=== PATIENT | male | born 1945 | race Caucasian/White ===

== ENCOUNTER 2023-08-22 06:24 | Day surgery (SDC) | payer MEDICARE, SELFPAY ==
[2023-08-22 08:09] VITALS: BMI 26.8
[2023-08-22 08:10] VITALS: BMI 26.8
[2023-08-22 08:11] VITALS: BP 118/68
[2023-08-22 09:35] VITALS: BP 90/61
[2023-08-22 09:45] VITALS: BP 100/59
[2023-08-22 10:00] VITALS: BP 100/68
[2023-08-22 10:15] VITALS: BP 109/69
== END 2023-08-22 10:29 | disposition home or self-care (01) ==
LOC: SDS 06:24
PROVIDERS: ATTENDING PHYSICIAN Internal Medicine Gastroenterology
DX: K76.6 Portal hypertension (principal)
CPT/HCPCS: 43235

== ENCOUNTER → 2023-10-15 15:17 | Outpatient (REF) | payer MEDICARE, SELFPAY | LOC: RAD 15:17 | PROVIDERS: ATTENDING PHYSICIAN Internal Medicine Cardiovascular Disease; FAMILY PHYSICIAN Emergency Medicine | DX: R05.1 Acute cough (principal) | CPT/HCPCS: 71046 ==

== ENCOUNTER → 2023-11-05 07:21 | Outpatient (REF) | payer MEDICARE, SELFPAY ==
--- NOTE | 2023-11-05 08:58 | CARDSERVLU ---
Echocardiogram with [facility] completed after protocol screening completed. Allergies verified.
Patent IV site: __22P RFA___
IV site flushed with 0.9% NaCl pre and post administration.
Diluted bolus method utilized to enhance visualization of ventricular beckford.
Total volume given: _6.5___ mL
Patient tolerated all procedures well without complications.
Site dcd at completion of testing.
== END ==
LOC: RCS 07:21
PROVIDERS: ATTENDING PHYSICIAN Internal Medicine Cardiovascular Disease; FAMILY PHYSICIAN Emergency Medicine
DX: R05.1 Acute cough (principal); I50.30 Unspecified diastolic (congestive) heart failure; I35.0 Nonrheumatic aortic (valve) stenosis; I25.10 Atherosclerotic heart disease of native coronary artery without angina pectoris
CPT/HCPCS: 93306; Q9950

== ENCOUNTER → 2023-11-13 11:49 | Outpatient (REF) | payer MEDICARE, SELFPAY | LOC: MRI 3T 11:49 | PROVIDERS: ATTENDING PHYSICIAN Nurse Practitioner Family; FAMILY PHYSICIAN Emergency Medicine | DX: R93.7 Abnormal findings on diagnostic imaging of other parts of musculoskeletal system (principal); R59.0 Localized enlarged lymph nodes; C22.0 Liver cell carcinoma; R53.82 Chronic fatigue, unspecified; R79.9 Abnormal finding of blood chemistry, unspecified; R94.6 Abnormal results of thyroid function studies | CPT/HCPCS: 70553; A9575 ==

== ENCOUNTER 2023-11-28 16:11 | Emergency (ER) | payer MEDICARE, SELFPAY ==
[2023-11-28 16:13] VITALS: BP 128/72
[2023-11-28 16:39] LABS: % Basophils 0.5 % (0-2); % Eosinophils 3.7 % (0-6); % Immature Granulocytes 0.5 % (0-0.5); % Lymphocytes 13.8 % (20.5-51.1); % Monocytes 9.1 % (1.7-9.3); % Neutrophils 72.4 % (42.2-75.2); Absolute Eosinophils 0.3 10^3/uL (0-0.7); Absolute Lymphocytes 1.2 10^3/uL (1.2-3.4); Absolute Monocytes 0.8 10^3/uL (0.1-0.6); Absolute Neutrophils 6.1 10^3/uL (1.4-6.5); Hematocrit 33.7 % (39.0-52.0); Hemoglobin 10.8 g/dL (13.0-18.0); Mean Corpuscular Hgb 27.1 pg (27.0-31.0); Mean Corpuscular Volume 84.7 fL (80.0-94.0); Mean Platelet Volume 9.4 fL (7.4-10.4); Nucleated Red Blood Cells % 0 % (-); Platelet Count 267 10^3/uL (130-400); Red Blood Cell Count 3.98 10^6/uL (4.70-6.10); Red Cell Dist. Width 16.7 % (11.5-14.5); White Blood Cell Count 8.5 10^3/uL (4.8-10.8)
[2023-11-28 16:55] LABS: Erythrocyte Sed Rate 117 mm/hour (0-20)
[2023-11-28 17:12] LABS: ALT (SGPT) 70 U/L (0-50); AST (SGOT) 53 U/L (17-59); Albumin 4.3 g/dl (3.5-5.0); Alkaline Phosphatase 320 U/L (38-126); Blood Urea Nitrogen 35 mg/dl (9-20); Calcium 9.4 mg/dl (8.4-10.2); Carbon Dioxide 21 mmol/L (22-30); Glucose 106 mg/dl (70-99); Total Bilirubin 0.8 mg/dl (0.2-1.3); Uric Acid 10.1 mg/dl (3.5-8.5); eGFR 56.93
[2023-11-28 17:45] LABS: Chloride 107 mmol/L (98-107); Potassium 4.7 mmol/L (3.5-5.1); Sodium 144 mmol/L (135-145)
[2023-11-28 18:50] VITALS: BP 136/77
[2023-11-28 18:51] VITALS: BMI 24.9
--- NOTE | 2023-11-28 19:20 | ED.GENMED ---
History of Present Illness
General
Chief Complaint: Musculo-Skeletal Complaint
Source: patient and spouse
Time Seen by Provider: 11/28/23 19:02
Travel History
Have you had any contact with someone who has COVID-19?: No
Do you have any symptoms of coronavirus? Fever > 100 degrees, chills, cough, shortness of breath, sore throat, loss of taste or smell, muscle aches, or headache?: No
History of Present Illness
History of Present Illness:
This patient is a 78-year-old male who states that on , 1 week ago, he noted bilateral painful feet. He noticed that the left foot gradually improved such that he no longer has pain in the left foot but he continues to complain of pain
specifically in the right great toe. He saw his primary care doctor today, and was referred to the emergency department with a suspicion of gout but also possibly infection. Patient has a history of liver cancer and is receiving immunotherapy
although his last dose was several weeks ago. He also notes that he was noted to have left leg weakness over the last few months, MRI negative for stroke, and has been experiencing therapy twice a week. He denies recent trauma or fall, fever,
chills, nausea, vomiting, diaphoresis, drainage, numbness. He describes the pain as difficult even to experience the bedsheet over his great toe. There is no radiation of the pain. Despite triage note, he denies foot or ankle pain otherwise.
Past History
Past History
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
Social History
Tobacco: Former smoker
Alcohol: None
Drug: None
Personal:
Living: with family
Phy Exam
Physical Exam
Physical Exam:
GENERAL: Alert , in no apparent distress
EYE: pupils equal and reactive
NECK: Supple, no significant adenopathy.
ENT: o/p clr, mmm.
CARDIAC: Regular rate and rhythm .
LUNGS: Clear breath sounds bilaterally, no acute respiratory distress, no wheezes/rales/rhonchi
ABDOMEN: Soft, without focal tenderness, no r/g, no cvat
NEUROLOGICAL: Alert and oriented, no focal neuro deficits
SKIN: Warm and dry, skin intact. There is mild swelling, redness, warmth noted at the right proximal great toe without associated crepitus, fluctuance, open wound, drainage, or other abnormalities. There is noted tenderness to palpation at this
area and range of motion is preserved although slightly painful to do so. No streaking appreciated. Exam normal otherwise.
MUSCULOSKELETAL: No edema except as above, well perfused.
PSYCH: Normal and appropriate interaction.
Course
Orders/Labs/Results
Orders:
Orders
11/28/23 16:21
Ankle, Right 3 view CR [CR Ankle - Right Min 3 Views *] Urgent
Comment:
Reason For Exam: pain no trauma
CR Foot - Right Min 3 Views Urgent
Comment:
Reason For Exam: no trauma pain
11/28/23 16:32
CMP [Comprehensive Metabolic Panel] Urgent
CRP [C-Reactive Protein] Urgent
Complete Blood Count/With Diff Urgent
Erythrocyte Sed Rate Urgent
Uric Acid Urgent
11/28/23 19:19
Prednisone [Deltasone] 40 mg PO NOW STA
Abnormal Lab Results
11/28/23
16:32
RBC 3.98 L 10^6/uL
(4.70-6.10)
Hgb 10.8 L g/dL
(13.0-18.0)
Hct 33.7 L %
(39.0-52.0)
MCHC 32.0 L g/dL
(33.0-37.0)
RDW 16.7 H %
(11.5-14.5)
Absolute Monos (auto) 0.8 H 10^3/uL
(0.1-0.6)
Lymphocytes % 13.8 L %
(20.5-51.1)
ESR 117 H mm/hour
(0-20)
Carbon Dioxide 21 L mmol/L
(22-30)
BUN 35 H mg/dl
(9-20)
Glucose 106 H mg/dl
(70-99)
Uric Acid 10.1 H mg/dl
(3.5-8.5)
ALT 70 H U/L
(0-50)
Alkaline Phosphatase 320 H U/L
(38-126)
C-Reactive Protein 27.70 H mg/L
(0.0-10.00)
11/28/23 16:32
11/28/23 16:32
Vital Signs
Initial and Last Documented VS:
Initial Vital Signs
Temp Pulse Resp BP Pulse Ox
98.3 F 78 16 128/72 99
11/28/23 16:13 11/28/23 16:13 11/28/23 16:13 11/28/23 16:13 11/28/23 16:13
Last Documented Vital Signs
Temp Pulse Resp BP Pulse Ox
98.4 F 68 16 136/77 99
11/28/23 18:50 11/28/23 18:50 11/28/23 16:13 11/28/23 18:50 11/28/23 18:50
*Critical Care Note
Total Time (30-74mins, 75-104mins- exclusive of procedures): Not Applicable
Update Note
Update Note:
Patient presents to the Emergency Department with ___foot pain
Number and Complexity of Problems Addressed at the Encounter
� Chronic conditions affecting care:
� Acute Exacerbation and/or Progression of Chronic Illness:
� Differential Diagnosis includes: But not limited to gouty flare, arthritis, cellulitis, septic arthritis, fracture, etc.
Amount and/or Complexity of Data to be Reviewed and Analyzed
� I performed an independent evaluation of and my interpretation is:
EKG:
CT:
Xrays: Read by radiology unremarkable
Laboratory Studies: Uric acid noted to be elevated, anemia at baseline, LFT abnormalities essentially at baseline
Other:
� Review of other/old records reveals:
� Clinical information was obtained by an independent historian: who is bedside
� Prescriptions/Medications Considered but not given:
� Further testing considered but not performed:
Risk of Complications and/or Morbidity or Mortality of Patient Management
� Social determinants of health affecting care:
� Discussion with other providers (PCP, Hospitalists, Consultants, etc):
� Escalation of care including admission/observation vs risk of discharge considered: New onset right great toe pain highly suspicious for gout flare. Patient notes that his both sons also suffer from gout. I did discuss with
patient and signs and symptoms of septic arthritis, importance of close monitoring, and reasons to return to the ER.
ED Attending Note
-
Portions of this chart may have been created with voice recognition software.� Occasional wrong word or��sound alike� substitutions may have occurred due to the inherent limitations of voice recognition software.
Discharge Plan
Departure
Patient Disposition: Home (Routine Discharge)
Date of Disposition: 11/28/23
Time of Disposition: 19:20
Patient with high blood pressure during this ER visit?: Yes
Condition: Good
Discharge Problem:
Gout
Instructions: Gout, BLOOD PRESSURE
Prescriptions:
New
prednisone 10 mg tablet
40 mg PO DIRECTED Qty: 30 0RF
Rx Instructions:
40mgpo qdX3d, then 30 mg qdX3d then 20 mg qdX3d, then 10mg qdX3 d
No Action
atorvastatin 20 mg Tablet
20 mg PO QPM
cyanocobalamin (vitamin B-12) 500 mcg Tablet
500 mcg PO DAILY
ascorbic acid (vitamin C) [Vitamin C] 500 mg Tablet
500 mg PO DAILY
tamsulosin 0.4 mg Capsule
0.4 mg PO DAILY
lisinopril 40 mg Tablet
40 mg PO DAILY
finasteride 5 mg Tablet
5 mg PO DAILY
ezetimibe 10 mg Tablet
10 mg PO DAILY
omega 5-bvv-rze-fish oil [Fish Oil] 1,000 mg (120 mg-180 mg) Capsule
1 cap PO BID
icosapent ethyl 1 gram Capsule
1 g PO BID
kkroizrppfd-gkekmjyxq-asx C-Mn 500-400 mg Capsule
1 cap PO BID
Citrucel 500 mg Tablet
500 mg PO QPM
furosemide 40 mg Tablet
40 mg PO DAILY Qty: 30 0RF
amiodarone 200 mg tablet
200 mg PO BID Qty: 60 0RF
Rx Instructions:
200 mg twice a day for 3 weeks and then decrease to 200 mg once a day.
Eliquis 5 mg Tablet
5 mg PO BID
amoxicillin 500 mg Tablet
2,000 mg PO DIRECTED PRN (Reason: before dentist)
Referrals:
Rosibel Vyas MD [Family Provider] - Follow up in 2-3 days
Activity Restrictions/Additional Instructions:
IF YOU DEVELOP FEVER, CHILLS, SWEATS, INCREASING PERSISTENT OR NEW PAIN, REDNESS, SWELLING, TROUBLE WALKING, OR OTHER WORRISOME SIGNS, PLEASE RETURN TO THE ER IMMEDIATELY.
Interventions
Interventions:
*Risk Screen - Suicide Last Done: 11/28/23 18:51
*General Assessment Last Done: 11/28/23 18:51
*Neglect/Abuse Screening Last Done: 11/28/23 18:51
ED- Fall Risk Assessment Last Done: 11/28/23 16:13
*ED COVID-19 Vaccine History Last Done: 11/28/23 16:13
Discharge Date and Time
Print Language: NEPALI
[2023-11-28] MEDS: DELTASONE 40 MG PO (19:25)
== END 2023-11-28 19:35 | disposition home or self-care (01) ==
LOC: EMR 16:11
PROVIDERS: Emergency Medicine; EMERGENCY PHYSICIAN Emergency Medicine; FAMILY PHYSICIAN Emergency Medicine
DX: M10.9 Gout, unspecified (principal); I10 Essential (primary) hypertension; E78.00 Pure hypercholesterolemia, unspecified; I38 Endocarditis, valve unspecified; I35.0 Nonrheumatic aortic (valve) stenosis; Z85.05 Personal history of malignant neoplasm of liver; Z87.891 Personal history of nicotine dependence
CPT/HCPCS: 99283; 73610; 73630; 80053; 84550; 85025; 85652; 86140

== ENCOUNTER → 2023-12-04 11:26 | Outpatient (REF) | payer MEDICARE, SELFPAY | LOC: RCS 11:26 | PROVIDERS: ATTENDING PHYSICIAN Internal Medicine Cardiovascular Disease; FAMILY PHYSICIAN Emergency Medicine | DX: I50.30 Unspecified diastolic (congestive) heart failure (principal); I42.9 Cardiomyopathy, unspecified | CPT/HCPCS: 93306; 93356 ==

== ENCOUNTER 2023-12-12 08:58 | Outpatient (RCR) | payer MEDICARE, SELFPAY | END 2023-12-12 23:59 | disposition home or self-care (01) | LOC: RPT 08:58 | PROVIDERS: ATTENDING PHYSICIAN Internal Medicine Hematology & Oncology; FAMILY PHYSICIAN Emergency Medicine | DX: R26.2 Difficulty in walking, not elsewhere classified (principal); M25.552 Pain in left hip; Z73.6 Limitation of activities due to disability; C22.0 Liver cell carcinoma | CPT/HCPCS: 97110; 97112; 97163; 97530 ==

== ENCOUNTER 2024-01-01 11:14 | Day surgery (SDC) | payer MEDICARE, SELFPAY ==
[2024-01-01] VITALS (10 sets, daily range): BP systolic 63–150; BP diastolic 74–94; BMI 24.1
[2024-01-01 07:31] LABS: % Basophils 0.8 % (0-2); % Immature Granulocytes 0.3 % (0-0.5); % Lymphocytes 19.8 % (20.5-51.1); % Monocytes 9.6 % (1.7-9.3); % Neutrophils 66.5 % (42.2-75.2); Absolute Basophils 0.1 10^3/uL (0-0.2); Absolute Eosinophils 0.2 10^3/uL (0-0.7); Absolute Lymphocytes 1.3 10^3/uL (1.2-3.4); Absolute Monocytes 0.6 10^3/uL (0.1-0.6); Absolute Neutrophils 4.2 10^3/uL (1.4-6.5); Hematocrit 34.1 % (39.0-52.0); Hemoglobin 10.9 g/dL (13.0-18.0); Mean Corpuscular Hgb 27.7 pg (27.0-31.0); Mean Corpuscular Volume 86.8 fL (80.0-94.0); Mean Platelet Volume 9.7 fL (7.4-10.4); Nucleated Red Blood Cells % 0 % (-); Platelet Count 243 10^3/uL (130-400); Red Blood Cell Count 3.93 10^6/uL (4.70-6.10); Red Cell Dist. Width 17.2 % (11.5-14.5); White Blood Cell Count 6.4 10^3/uL (4.8-10.8)
[2024-01-01 07:48] LABS: ALT (SGPT) 73 U/L (0-50); AST (SGOT) 54 U/L (17-59); Albumin 4.3 g/dl (3.5-5.0); Alkaline Phosphatase 329 U/L (38-126); Blood Urea Nitrogen 28 mg/dl (9-20); Calcium 9.5 mg/dl (8.4-10.2); Carbon Dioxide 24 mmol/L (22-30); Chloride 108 mmol/L (98-107); Direct Bilirubin 0.4 mg/dl (0.0-0.4); Glucose 98 mg/dl (70-99); LDH 203 U/L (120-246); Potassium 4.6 mmol/L (3.5-5.1); Sodium 143 mmol/L (135-145); Total Protein 7.4 g/dl (6.3-8.2); eGFR 52.09
[2024-01-01 07:58] LABS: INR 1.26; PT 15.8 Sec (11.4-14.6)
[2024-01-01 07:59] LABS: APTT 33.6 Sec (23.4-35.0)
[2024-01-01] MEDS: NSS 1000 IV ×2 (08:11→18:01)
[2024-01-01] MEDS: DECADRON 8 MG IV (08:44)
[2024-01-01] MEDS: BENADRYL 50 MG IV (08:46)
[2024-01-01] MEDS: ZOFRAN 54 MG IV (08:56)
[2024-01-01] MEDS: UNASYN IV (09:20)
[2024-01-01] MEDS: ZOFRAN 4 MG IV ×2 (16:26→17:57)
[2024-01-01] MEDS: METAMUCIL, KONSYL 1 PACKET PO (18:01)
[2024-01-01] MEDS: LIPITOR 20 MG PO (18:01)
[2024-01-01] MEDS: ROXICODONE 5 MG PO (20:01)
[2024-01-02] MEDS: NSS 1000 IV (03:47)
[2024-01-02 05:08] LABS: Hematocrit 28.8 % (39.0-52.0); Hemoglobin 9.6 g/dL (13.0-18.0); Mean Corp Hgb Conc. 33.3 g/dL (33.0-37.0); Mean Corpuscular Hgb 27.4 pg (27.0-31.0); Mean Corpuscular Volume 82.3 fL (80.0-94.0); Mean Platelet Volume 9.8 fL (7.4-10.4); Platelet Count 244 10^3/uL (130-400); Red Cell Dist. Width 17.2 % (11.5-14.5); White Blood Cell Count 11.3 10^3/uL (4.8-10.8)
[2024-01-02 05:34] LABS: ALT (SGPT) 214 U/L (0-50); AST (SGOT) 230 U/L (17-59); Albumin 3.7 g/dl (3.5-5.0); Alkaline Phosphatase 293 U/L (38-126); Blood Urea Nitrogen 20 mg/dl (9-20); Calcium 8.7 mg/dl (8.4-10.2); Carbon Dioxide 22 mmol/L (22-30); Chloride 105 mmol/L (98-107); Estimated Creatinine Clearance 68 ml/min; Glucose 119 mg/dl (70-99); LDH 597 U/L (120-246); Potassium 4.4 mmol/L (3.5-5.1); Sodium 138 mmol/L (135-145); Total Bilirubin 0.8 mg/dl (0.2-1.3); Total Protein 6.6 g/dl (6.3-8.2); eGFR > 60.00
[2024-01-02] MEDS: ZOFRAN 4 MG IV (05:45)
[2024-01-02 07:00] VITALS: BP 138/75
[2024-01-02] MEDS: VITAMIN C 500 MG PO (07:41)
[2024-01-02] MEDS: FLOMAX 0.400000000000000022 MG PO (07:41)
[2024-01-02] MEDS: VITAMIN B-12 500 MCG PO (07:41)
[2024-01-02] MEDS: ZESTRIL 40 MG PO (07:42)
[2024-01-02] MEDS: PROSCAR 5 MG PO (07:42)
[2024-01-02] MEDS: ZETIA 10 MG PO (07:42)
--- NOTE | 2024-01-02 09:42 | W.PN.GENERIC ---
Assessment / Plan
-
Doing well 1 day post transarterial chemoembolization R hepatic lobe
OK for d/c, discussed sxs of post-embolization syndrome
If does well, would proceed with left lobe chemoembolization ~4 weeks
Physician Progress Note
Subjective
Did well overnight, still with some nausea. Able to eat breakfast. No pain R groin, no pain R abdomen. Incidentally nicked penis using urinal, has no active bleeding.
Objective
Vital Signs
Temp Pulse Resp BP Pulse Ox
98.7 F 55 16 138/75 97
01/02/24 07:00 01/02/24 07:42 01/02/24 07:00 01/02/24 07:42 01/02/24 07:00
Lab Results
01/02/24 04:37
01/02/24 04:37
R groin dressing dry, no ecchymoses or induration
Abd soft, non-tender
Expected leukocytosis, elev liver enzymes post chemoembolization
--- NOTE | 2024-01-02 10:20 | CM ---
Reviewed chart, received message that patient is medically cleared for discharge. Spoke to patient who stated that his will come and pick him up. He expressed no needs. IMM reviewed and patient agreeable.
Plan: Case management will continue to follow and assist with discharge planning. Home, no needs.
== END 2024-01-02 10:57 | disposition home or self-care (01) ==
LOC: SDS 11:14
PROVIDERS: ATTENDING PHYSICIAN Radiology Vascular & Interventional Radiology; FAMILY PHYSICIAN Emergency Medicine; REFERRING PHYSICIAN Internal Medicine Hematology & Oncology
DX: C22.0 Liver cell carcinoma (principal)
CPT/HCPCS: 37243; 36246; 36415; 75726; 76937; 80053; 82248; 83615; 85025; 85027; 85610; 85730; 96420; 99152; 99153; C1769; C1887; J9000

== ENCOUNTER 2024-01-08 10:02 | Outpatient (RCR) | payer MEDICARE, SELFPAY | END 2024-01-08 23:59 | disposition home or self-care (01) | LOC: RPT 10:02 | PROVIDERS: ATTENDING PHYSICIAN Internal Medicine Hematology & Oncology; FAMILY PHYSICIAN Emergency Medicine | DX: C22.0 Liver cell carcinoma (principal); C77.2 Secondary and unspecified malignant neoplasm of intra-abdominal lymph nodes; C79.51 Secondary malignant neoplasm of bone; Z73.6 Limitation of activities due to disability; R26.2 Difficulty in walking, not elsewhere classified; M62.81 Muscle weakness (generalized) | CPT/HCPCS: 97110; 97112; 97530; 97535 ==

== ENCOUNTER 2024-02-12 10:40 | Outpatient (RCR) | payer MEDICARE, SELFPAY | END 2024-02-12 23:59 | disposition home or self-care (01) | LOC: RPT 10:40 | PROVIDERS: ATTENDING PHYSICIAN Internal Medicine Hematology & Oncology; FAMILY PHYSICIAN Emergency Medicine | DX: C22.0 Liver cell carcinoma (principal); C77.2 Secondary and unspecified malignant neoplasm of intra-abdominal lymph nodes; C79.51 Secondary malignant neoplasm of bone; Z73.6 Limitation of activities due to disability | CPT/HCPCS: 97110; 97112; 97530; 97535 ==

== ENCOUNTER 2024-02-26 10:03 | Outpatient (RCR) | payer MEDICARE, SELFPAY | END 2024-02-26 23:59 | disposition home or self-care (01) | LOC: RPT 10:03 | PROVIDERS: ATTENDING PHYSICIAN Internal Medicine Hematology & Oncology; FAMILY PHYSICIAN Emergency Medicine | DX: M21.372 Foot drop, left foot (principal); C77.2 Secondary and unspecified malignant neoplasm of intra-abdominal lymph nodes; C79.51 Secondary malignant neoplasm of bone; Z73.6 Limitation of activities due to disability; C22.0 Liver cell carcinoma; R26.2 Difficulty in walking, not elsewhere classified; M62.81 Muscle weakness (generalized) | CPT/HCPCS: 97110; 97112; 97530 ==

== ENCOUNTER 2024-03-16 16:59 | Inpatient (IN) | payer MEDICARE, SELFPAY ==
[2024-03-16] VITALS (10 sets, daily range): BP systolic 111–134; BP diastolic 67–105; BMI 23.9; BMI 23.7
[2024-03-16 14:23] LABS: % Basophils 0.4 % (0-2); % Eosinophils 1.5 % (0-6); % Immature Granulocytes 0.4 % (0-0.5); % Lymphocytes 8.7 % (20.5-51.1); % Monocytes 4.8 % (1.7-9.3); % Neutrophils 84.2 % (42.2-75.2); Absolute Basophils 0.1 10^3/uL (0-0.2); Absolute Eosinophils 0.2 10^3/uL (0-0.7); Absolute Monocytes 0.5 10^3/uL (0.1-0.6); Absolute Neutrophils 9.6 10^3/uL (1.4-6.5); Hematocrit 33.1 % (39.0-52.0); Hemoglobin 10.9 g/dL (13.0-18.0); Mean Corp Hgb Conc. 32.9 g/dL (33.0-37.0); Mean Corpuscular Hgb 27.9 pg (27.0-31.0); Mean Corpuscular Volume 84.7 fL (80.0-94.0); Mean Platelet Volume 10.4 fL (7.4-10.4); Nucleated Red Blood Cells % 0 % (-); Platelet Count 216 10^3/uL (130-400); Red Blood Cell Count 3.91 10^6/uL (4.70-6.10); Red Cell Dist. Width 17.5 % (11.5-14.5); White Blood Cell Count 11.3 10^3/uL (4.8-10.8)
[2024-03-16 14:53] LABS: NT-proBNP 10000 pg/ml; Troponin I 0.052 ng/ml
[2024-03-16 14:58] LABS: ALT (SGPT) 137 U/L (0-50); AST (SGOT) 109 U/L (17-59); Albumin 4.3 g/dl (3.5-5.0); Alkaline Phosphatase 761 U/L (38-126); Blood Urea Nitrogen 32 mg/dl (9-20); Calcium 9.6 mg/dl (8.4-10.2); Carbon Dioxide 18 mmol/L (22-30); Chloride 110 mmol/L (98-107); Glucose 96 mg/dl (70-99); Potassium 4.9 mmol/L (3.5-5.1); Sodium 145 mmol/L (135-145); Total Bilirubin 1.7 mg/dl (0.2-1.3); Total Protein 7.5 g/dl (6.3-8.2); eGFR > 60.00
--- NOTE | 2024-03-16 15:14 | EDRN ---
the pt was brought back from the waiting room to ED Bed #8, this RN entered the pts room and placed the pt on the monitor, VS WNL, the pt has a RCW SQ Port that he wants accessed, this RN called IV team and notified them
--- NOTE | 2024-03-16 15:17 | ED.GENMED ---
History of Present Illness
General
Chief Complaint: Breathing Problem
Source: patient
Exam Limitations: none
Time Seen by Provider: 03/16/24 15:15
Nursing documentation reviewed up to this point in time: agreed with
History of Present Illness
History of Present Illness:
78-year-old male with history of A-fib on Eliquis, HTN, HLD, UTI, nonischemic cardiomyopathy, sleep apnea, liver cell carcinoma, BPH, cognitive impairment, severe aortic stenosis, presents stating he's been SOB since yesterday, worse today. Denies
cough. Denies f/c/n/v/d/c. Denies CP, abdominal pain
Past History
Past History
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
Social History
Tobacco: Former smoker
Alcohol: None
Drug: None
Personal:
Living: with family
Review of Systems
Review of Systems
Allergies reviewed?: Yes
All Other Systems: ROS reviewed and negative except as documented in HPI and ROS
Constitutional: Reports fatigue; Denies fever
Respiratory: Reports cough and trouble breathing (shortness of breath)
Cardiac: Denies chest pain
ABD/GI: Reports anorexia; Denies abdominal pain, nausea, vomiting or diarrhea
: Denies dysuria or difficulty voiding
Musculoskeletal: Denies edema
Skin: Reports other (access port R upper chest wall)
Neurological: Reports no symptoms
Phy Exam
Physical Exam
Physical Exam:
GENERAL: No acute distress. A&Ox3. Frail
CONSTITUTIONAL: Afebrile.
EYES: PERRL, conjunctivae normal
ENMT: moist mucus membranes, Pharynx nl
RESPIRATORY: Regular respirations, nonlabored, lungs clear.
CARDIOVASCULAR: Regular rate and rhythm, no murmurs, no rubs.
GI: Soft, nontender, normal BS
MUSCULOSKELETAL: Moves with ease. Well perfused.
SKIN: Warm, dry, pink
PSYCH: Normal mood and affect. Well kept, interactive and appropriate
NEUROLOGIC: Awake, alert and oriented. No focal neurological deficits
Scores
Heart Failure Risk
Heart Failure Risk Score: Yes
History of Stroke or TIA: No
History of intubation for respiratory distress: No
Heart rate on ED arrival >/= 110: No
SaO2 <90% on arrival on room air: No
HR >/=110 during 3min walk test (or too ill to perform test): Yes
ECG has acute ischemic changes: No
Urea >/=12mmol/L (BUN 33.6mg/dL): Yes
Serum CO2>/=35mmol/L: No
Troponin I or T elevated to ID Level (0.4mg/dL): Yes
NT-proBNP >/=5,000ng/L (5,000pg/ml): Yes
HF Risk Score: 6
Admission Status: VERY HIGH RISK 55.3% Consider admission to hospital
Course
Orders/Labs/Results
Orders:
Orders
03/16/24 Breakfast
Cholesterol Lowering
Cholesterol Lowering: Sodium, 2 Gram
03/16/24 14:07
Electrocardiogram (*1) Urgent
Reason for Study: Shortness of Breath
EKG- Treatment ONCE
03/16/24 14:08
CR Chest - 2 Views Urgent
Reason For Exam: shortness of breath - PER PROTOCOL
03/16/24 14:16
Complete Blood Count/With Diff Urgent
Comprehensive Metabolic Panel Urgent
NT-proBNP Urgent
Troponin I Urgent
03/16/24 16:15
Procalcitonin Urgent
PCT Algorithmm Indication: Respiratory
Blood Culture Urgent
WENDIE Source: Blood/Venous
Specimen Description:
03/16/24 16:34
Admit/Transfer Patient As Directed
Co-Sign Provider:
Level of Care: Inpatient admission
Assign to:: Telemetry
Physician / Group: shabnam
Diagnosis: pneumonia
Reason for Telemetry: Arrhythmia
Date to Stop Telemetry: 03/19/24
Time to Stop Telemetry: 11:00
Reason for Hospitalization: arrhythmia
Expected length of stay greater than two midnights?: Yes
ELOS- Estimated Length of Stay in days: 3
I certify the patient meets the requirements for IP care: Yes
PRN Pain Medication Management As Directed
May give lesser potent ordered pain med per pt: Yes
preference::
Protocol:: Medication orders for pain may be administered in a
manner that supports deferring to patient preference
when the pt is:
- Requesting an ordered lesser potent pain medication.
Least to most potent pain medications are defined
as: acetaminophen < NSAID < tramadol < opioids
(morphine, oxycodone, hydromorphone).
- Requesting a lesser dose of the same medication IF
ORDERED.
- Requesting a less intrusive route of administration
if both routes are prescribed by the provider (PO <
IV).
03/16/24 16:36
Code Status As Directed
Resuscitation Status: Full Code
03/16/24 16:49
Vancomycin [Vancocin] 2,000 mg 0.9% Sodium Chloride 500 ml [Nss] 500 ml IV NOW
03/16/24 17:03
COVID-19 Antigen Stat
Source: Nasal Swab
03/16/24 20:05
Apixaban [Eliquis] 5 mg PO BID
Carvedilol [Coreg] 3.125 mg PO BID
Gabapentin [Neurontin] 200 mg PO BIDPRN PRN
Ipratropium/Albuterol Sulfate [Duoneb] 3 ml INH R Q4HPRN PRN
VANCOMYCIN Pharmacy to Dose [VANCOCIN Pharmacy to Dose] 1 each Pharmacy To Prepare [Call Pharmacy To Prepare] 0 ml IV PER PROTOCOL
icosapent ethyl 1 grams PO BID
03/16/24 20:05
Activity As Directed
Activity Level: Out of Bed-Early Mobility
Intake/ Output As Directed
Frequency: Per unit guidelines
Vital Signs As Directed
Frequency: Per unit guidelines
Weight As Directed
Frequency: Once
Comment: on admission
Pt Eval And Treat Routine
Activity Level: As Tolerated
03/16/24 20:15
Troponin I Q6H
03/16/24 22:00
Cefepime HCl [Maxipime] 1,000 mg IV Q8H
03/17/24 02:15
Troponin I Q6H
03/17/24 06:00
Complete Blood Count/No Diff IN AM
Comprehensive Metabolic Panel IN AM
03/17/24 08:00
Amiodarone [Pacerone] 200 mg PO DAILY
Ezetimibe [Zetia] 10 mg PO DAILY
Finasteride [Proscar] 5 mg PO DAILY
Furosemide [Lasix] 20 mg PO DAILY
Lisinopril [Zestril] 20 mg PO DAILY
Tamsulosin [Flomax] 0.4 mg PO DAILY
03/17/24 08:15
Troponin I Q6H
03/18/24 06:00
Complete Blood Count/No Diff IN AM
Comprehensive Metabolic Panel IN AM
03/19/24 06:00
Complete Blood Count/No Diff IN AM
Comprehensive Metabolic Panel IN AM
03/19/24 11:00
DC Protocol for Telemetry ONCE
03/20/24 06:00
Complete Blood Count/No Diff IN AM
Comprehensive Metabolic Panel IN AM
03/21/24 06:00
Complete Blood Count/No Diff IN AM
Comprehensive Metabolic Panel IN AM
Abnormal Lab Results
03/16/24
14:16
WBC 11.3 H 10^3/uL
(4.8-10.8)
RBC 3.91 L 10^6/uL
(4.70-6.10)
Hgb 10.9 L g/dL
(13.0-18.0)
Hct 33.1 L %
(39.0-52.0)
MCHC 32.9 L g/dL
(33.0-37.0)
RDW 17.5 H %
(11.5-14.5)
Absolute Neuts (auto) 9.6 H 10^3/uL
(1.4-6.5)
Absolute Lymphs (auto) 1.0 L 10^3/uL
(1.2-3.4)
Neutrophils % 84.2 H %
(42.2-75.2)
Lymphocytes % 8.7 L %
(20.5-51.1)
Chloride 110 H mmol/L
(98-107)
Carbon Dioxide 18 L mmol/L
(22-30)
BUN 32 H mg/dl
(9-20)
Total Bilirubin 1.7 H mg/dl
(0.2-1.3)
AST 109 H U/L
(17-59)
ALT 137 H U/L
(0-50)
Alkaline Phosphatase 761 H U/L
(38-126)
Troponin I 0.052 H* ng/ml
03/16/24 14:16
03/16/24 14:16
Vital Signs
Initial and Last Documented VS:
Initial Vital Signs
Temp Pulse Resp BP Pulse Ox
99.9 F 99 18 134/78 94
03/16/24 13:42 03/16/24 13:42 03/16/24 13:42 03/16/24 13:42 03/16/24 13:42
Last Documented Vital Signs
Temp Pulse Resp BP Pulse Ox
99.9 F 75 23 112/69 96
03/16/24 13:42 03/16/24 20:00 03/16/24 20:00 03/16/24 19:00 03/16/24 19:00
MDM/Problems Addressed
Differential Diagnosis Includes:
PNA, PE
MDM/Problems Addressed:
78-year-old male with history of A-fib on Eliquis, HTN, HLD, UTI, nonischemic cardiomyopathy, sleep apnea, liver cell carcinoma, BPH, cognitive impairment, severe aortic stenosis, presents stating he's been SOB since yesterday, worse today. Denies
cough. Denies f/c/n/v/d/c. Denies CP, abdominal pain
Echocardiogram 12/04/2023 with EF of 40%, severe aortic stenosis, normal pulmonary artery pressure, ventricular function improved since previous
CBC Mild leukocytosis
CMP: BUN/creat 32/1.2
Troponin 0.052, EKG NSR, no chest pain
BNP: 95733 (Chronic systolic congestive heart failure)
CXR radiology report read: IMPRESSION:
Initially radiology report read: there is moderate pneumoperitoneum or air space disease in the right perihilar region extending into the right middle lobe consistent with pneumonia
Spoke with Radiologist who corrected above, NO PNEUMOPERITONEUM, only pneumonia
Pt on Eliquis, doubt PE, no indication for chest CT
Last admission ID had pt on cefepime and doxycycline and vancomycin for pneumonia, will start with same
4:00 p.m.
Pt remains stable,
Hospitalist notified of admission
Dx: Pneumonia, liver cell carcinoma
*Critical Care Note
Total Time (30-74mins, 75-104mins- exclusive of procedures): Not Applicable
ED Attending Note
-
Portions of this chart may have been created with voice recognition software.� Occasional wrong word or��sound alike� substitutions may have occurred due to the inherent limitations of voice recognition software.
Discharge Plan
Departure
Patient Disposition: Admit
Date of Disposition: 03/16/24
Time of Disposition: 16:05
Presentation/result/management discussed w/ accepting MD/DO: Hospitalist
Condition: Serious
Discharge Problem:
Pneumonia, Elevated troponin, Elevated brain natriuretic peptide (BNP) level
Interventions
Interventions:
*Risk Screen - Suicide Last Done: 03/16/24 13:42
*General Assessment Last Done: 03/16/24 13:42
*Neglect/Abuse Screening Last Done: 03/16/24 13:42
ED- Fall Risk Assessment Last Done: 03/16/24 15:14
*ED COVID-19 Vaccine History Last Done: 03/16/24 15:14
*Nursing Disposition Last Done: 03/16/24 20:05
ED- Cardiac Assessment Last Done: 03/16/24 15:14
ED- Pulmonary Assessment Last Done: 03/16/24 15:14
Discharge Date and Time
Discharge Date/Time: 03/16/24 20:05
--- NOTE | 2024-03-16 16:06 | HPS.HSE ---
Addendum entered and electronically signed by Graham Coretz MD 03/16/24 16:40:
I saw and examined the patient.
The POLICE DETECTIVE's note was reviewed and I agree with the note.
Comment:
78 yo M with past medical history of liver cancer, atrial fibrillation on chronic coagulopathy with Eliquis, hypertension, hyperlipidemia, severe aortic stenosis, chronic HFrEF, BPH,abnormal with complaints of shortness of breath. Patient stated
that shortness of breath has been ongoing starting earlier today. No productive cough. No fevers. feeling cold[place] No acute distress. Not tachypneic but able to speak in complete sentences. Cardiac S1-S2 regular rate
rhythm. Lungs decreased breath sounds right greater than left. No crackles. Abdomen positive bowel sounds soft nontender nondistended. Extremities no edema. Neuro awake alert and oriented. Psych pleasant. Shortness of breath likely
multifactorial with pneumonia and possibility of mild acute on chronic heart failure exacerbation, Acute on chronic heart failure exacerbation, Elevated troponin, Severe aortic stenosis, BPH. Plan start patient on broad-spectrum antibiotics. Check
procalcitonin. Continue other home meds. Probnp 10k but seems euvolemic. Hold IV lasix. Trend trop. CP free. If no improvement chest CT chest and trial of IV lasix.
Discussed with ER team
D/w with sposue at bedside
I spent a total of 80 minutes with the patient or on the floor. More than 50% of this time involved counseling and coordination of care.
Original Note:
Family Physician
-
Family Physician: Rosibel Vyas MD
Chief Complaint
-
sob
History of Present Illness
78-year-old with past medical history for A-fib, hypertension, hyperlipidemia, UTI, nonischemic cardiomyopathy, sleep apnea, liver cell carcinoma, BPH severe aortic stenosis presented to us with short of breath since this morning. Stated runny nose
for past few days. [place] weak since yesterday. Denied any cough. Denied chest pain patient denied fever, chills. Patient denied headache, dizziness, syncopal episode.. patient denied abdominal pain, nausea, vomiting, diarrhea.denied weight gain.
Denied lower extremities edema.
Patient received Vanco in ER for possible pneumonia. Admitting for further management
Medical History
Past Medical History
Past Medical History: Reports Other
Additional Past Medical History:
Hyperlipidemia
Hypertension
Thyroid nodule cardiomyopathy
fatty liver
BPH
aortic stenosis
coronary artery disease hepatocellular carcinoma
Past Surgical History: Reports Other
Additional Past Surgical History:
Right total knee replacement appendectomy
Mohs surgery
Social History
Tobacco: Former Smoker
Alcohol: Former
Drug: None
Personal:
Living: With Family
Family History
Family History: Not pertinent
Allergies / Home Medications
Allergies reflects when Allergies were last updated in [employer] ([employer]
Home Medications with original date entered in [employer] ([employer])
Allergy/Medication List:
Allergies
Allergy/AdvReac Type Severity Reaction Status Date / Time
No Known Allergies Allergy Verified 03/16/24 13:41
Home Medications
ascorbic acid (vitamin C) 500 mg tablet (Vitamin C) 500 mg PO DAILY Supplement 01/22/23
atorvastatin 20 mg tablet 20 mg PO QPM High Cholesterol 01/22/23
cyanocobalamin (vitamin B-12) 500 mcg tablet 500 mcg PO DAILY Supplement 01/22/23
ezetimibe 10 mg tablet 10 mg PO DAILY High Cholesterol 01/22/23
finasteride 5 mg tablet 5 mg PO DAILY Urinary Issue 01/22/23
icosapent ethyl 1 gram capsule 1 g PO BID High Cholesterol 01/22/23
omega 0-lzm-fpc-fish oil 1,000 mg (120 mg-180 mg) capsule (Fish Oil) 1 cap PO BID Supplement 01/22/23
tamsulosin 0.4 mg capsule 0.4 mg PO DAILY Urinary Issue 01/22/23
nheufblflsf-ptkpslhog-fcm C-Mn 500 mg-400 mg capsule 1 cap PO BID Supplement 04/01/23
methylcellulose (laxative) 500 mg tablet (Citrucel) 500 mg PO QPM Constipation 05/17/23
apixaban 5 mg tablet (Eliquis) 5 mg PO BID Blood Clot Prevention/Tx 07/17/23
amoxicillin 500 mg tablet 2,000 mg PO DIRECTED PRN before dentist 08/02/23
acetaminophen 500 mg tablet (Tylenol Extra Strength) 1,000 mg PO Q6HPRN PRN mild pain 03/16/24
amiodarone 200 mg tablet 200 mg PO DAILY 03/16/24
carvedilol 3.125 mg tablet 3.125 mg PO BID 03/16/24
furosemide 20 mg tablet 20 mg PO DAILY 03/16/24
gabapentin 100 mg capsule 200 mg PO BIDPRN PRN mild pain 03/16/24
lisinopril 20 mg tablet 20 mg PO DAILY 03/16/24
Review of Systems
-
Constitutional: Reports No Symptoms
EENT: Reports No Symptoms
Respiratory: Reports Cough
Cardiac: Reports No Symptoms
Abdomen/GI: Reports No Symptoms
: Reports No Symptoms
Musculoskeletal: Reports No Symptoms
Skin: Reports No Symptoms
Neurological: Reports No Symptoms and Weakness
Endocrine: Reports No Symptoms
Hematologic/Lymphatic: Reports No Symptoms
Psych: Reports No Symptoms
Physical Exam
Vital Signs
Vital Signs
Temp Pulse Resp BP Pulse Ox
99.9 F 97 18 132/70 96
03/16/24 13:42 03/16/24 15:15 03/16/24 15:15 03/16/24 15:14 03/16/24 15:15
Physical Exam
General: Well Developed, Well Nourished and No Apparent Distress
HEENT: NormoCephalic, Moist mucous membranes and Atraumatic
Respiratory: Clear
Cardiac: S1/S2 and Regular Rhythm; No Murmur or Rub
GI: Soft, Non Tender, Non Distended and Normal Bowel Sounds; No Organomegaly
Rectal: Deferred by Provider
Musculoskeletal: No Clubbing, No Cyanosis and No Edema
Skin: No Rash
Neuro: AO x 3 and Nonfocal/grossly intact
Psych: Calm
Laboratory Results
-
03/16/24 14:16
03/16/24 14:16
Laboratory Results
Total Bilirubin 1.7 mg/dl (0.2-1.3) H 03/16/24 14:16
AST 109 U/L (17-59) H 03/16/24 14:16
ALT 137 U/L (0-50) H 03/16/24 14:16
Alkaline Phosphatase 761 U/L (38-126) H 03/16/24 14:16
Troponin I 0.052 ng/ml H* 03/16/24 14:16
Data Reviewed
-
Diagnostic Radiology: Report Reviewed by me
Lab Data: Labs Reviewed by me
Impression/Plan
-
# Shortness of breath likely from pneumonia
-chest x ray with There is moderate parenchymal air space disease in the right perihilar region extending into the right middle lobe consistent with pneumonia.There is moderate pneumoperitoneum or air space disease in the right perihilar region
extending into the right middle lobe consistent with pneumonia
-WBCs 11.3
-Vancomycin continued
-Procalcitonin pending
-COVID pending
-Blood cultures from ER
#hepatocellular ca with liver cirrhosis
-chemotherapy was in December
-Due for PET scan on Saturday
-Tbili 1.7,ast 109,alt 137,alk 761
-[facility]
#anemia of chronic disease
-hgb stable at 10.9
-no active bleeding
-ctm
#chronic trop elevation
-trop 0.052
-Patient denies any chest pain
-EKG with normal sinus rhythm
# Chronic systolic congestive heart failure
-[id number]
-Furosemide continued
-Strict TEJAS
-Daily weight
-Continue to monitor
# Paroxysmal atrial fibrillation
-Amiodarone continued Eliquis continue
-Coreg continued with hold parameters
#Coronary artery disease
-Continue aspirin
#Severe aortic stenosis
#�History of abdominal aortic aneurysm
#�Essential hypertension
-Continue lisinopril with hold parameter
#�Hypercholesterolemia
-Hold statin
-Continue Zetia
#BPH
-Continue finasteride, tamsulosin
Full code
DVT prophylaxis�eliquis
[2024-03-16] MEDS: VANCOCIN 540 MG IV (17:06)
[2024-03-16 17:10] LABS: Procalcitonin 0.17 ng/ml (0.0-0.25)
--- NOTE | 2024-03-16 17:19 | EDRN ---
this RN noticed that the pts Sp02 dipped to 88% on RA, this RN placed the pt on 3L NC and Sp02 came up to 96%, no c/o SOB currently, no c/o chest pain, the pt is resting in stretcher in the lowest position, side rails up x2, call guy within reach,
HOB elevated, no s/s of distress, will continue to monitor the pt closely
[2024-03-16 17:30] LABS: COVID-19 Antigen Negative (Negative)
--- NOTE | 2024-03-16 20:20 | PTCARENOTE ---
Pt arrived to room 434-01. Pt stand and pivot from stretcher to bed. Pt AAOx3, VSS. Pt oriented to room, call guy placed within reach.
[2024-03-16] MEDS: COREG 3.125 MG PO (20:56)
[2024-03-16] MEDS: MAXIPIME 1000 MG IV (20:56)
[2024-03-16] MEDS: ELIQUIS 5 MG PO (20:56)
[2024-03-16] MEDS: STERILE WATER FOR INJECTION 10 ML IV (20:56)
--- NOTE | 2024-03-16 21:11 | PHA.VAN.IN ---
Assessment
- Assessment
Renal Function: Appears elevated from baseline (baseline ~1.0)
Concomitant Antimicrobials: cefepime
- Previous Dosing Experience
Previous Regimen: 1000 mg q12h
Date of Regimen: 05/2023
Provided Trough of: 13.5 and peak 23.6
Patient's SCR is: Elevated compared to previous dosing experience (1.2 vs 1.0)
Patient's weight is: Decreased compared to previous dosing experience (90 g 06/06; 77 kg 04/07)
AUC Dosing Plan
- Empiric Dosing
Initial / Loading Dose: 2000 mg ~1700 03/16/24
Maintenance Regimen: 1250 mg q24h - to start 0600 03/17/24
Estimated AUC (mcg*h/mL): 467
Estimated Peak (mcg*h/mL): 32.9
Estimated Trough (mcg/ml): 10.2
Estimated Half Life (H): 13.6
- Monitoring
No levels ordered at this time: consider levels when pt nears steady state
Pharmacokinetics Vancomycin I
- -
Patient Age: 78
Patient Sex: Male
Vancomycin Day #: 1
Indication: Pulmonary/Respiratory
Requesting Provider: Justice
Height / Weight:
Height 5 ft 11 in
Actual Weight 77.111 kg
Pertinent Past Medical History: hx liver Ca; chemotx was in December
- Vital Signs / Lab Results
Temp Pulse Resp BP Pulse Ox
97.8 F 82 18 122/77 98
03/16/24 20:23 03/16/24 20:56 03/16/24 20:23 03/16/24 20:56 03/16/24 20:23
Lab Results - Hematology
03/16/24
14:16
WBC 11.3 H
Lab Results - Chemistry
03/16/24
14:16
BUN 32 H
Creatinine 1.2
Albumin 4.3
[2024-03-16 21:46] LABS: Troponin I 0.137 ng/ml
[2024-03-17 02:50] VITALS: BP 102/58
[2024-03-17 03:54] LABS: ALT (SGPT) 114 U/L (0-50); AST (SGOT) 71 U/L (17-59); Albumin 3.6 g/dl (3.5-5.0); Alkaline Phosphatase 595 U/L (38-126); Blood Urea Nitrogen 31 mg/dl (9-20); Carbon Dioxide 23 mmol/L (22-30); Chloride 108 mmol/L (98-107); Estimated Creatinine Clearance 51 ml/min; Glucose 90 mg/dl (70-99); Hematocrit 26.2 % (39.0-52.0); Hemoglobin 8.7 g/dL (13.0-18.0); Mean Corp Hgb Conc. 33.2 g/dL (33.0-37.0); Mean Corpuscular Volume 84.2 fL (80.0-94.0); Mean Platelet Volume 10.8 fL (7.4-10.4); Platelet Count 146 10^3/uL (130-400); Red Blood Cell Count 3.11 10^6/uL (4.70-6.10); Red Cell Dist. Width 17.2 % (11.5-14.5); Sodium 143 mmol/L (135-145); Total Bilirubin 1.7 mg/dl (0.2-1.3); Total Protein 6.8 g/dl (6.3-8.2); White Blood Cell Count 7.3 10^3/uL (4.8-10.8); eGFR 56.93
[2024-03-17 04:11] LABS: Troponin I 0.098 ng/ml
[2024-03-17] MEDS: VANCOCIN 275 MG IV (05:45)
[2024-03-17] MEDS: STERILE WATER FOR INJECTION 10 ML IV ×2 (05:46→14:55)
[2024-03-17] MEDS: MAXIPIME 1000 MG IV ×2 (05:46→14:55)
[2024-03-17 07:37] VITALS: BP 105/64
[2024-03-17] MEDS: COREG PO (08:57)
[2024-03-17] MEDS: FLOMAX 0.4 MG PO (08:57)
[2024-03-17] MEDS: PACERONE 200 MG PO (08:57)
[2024-03-17] MEDS: ZETIA 10 MG PO (08:57)
[2024-03-17] MEDS: LASIX 20 MG PO (08:57)
[2024-03-17] MEDS: PROSCAR 5 MG PO (08:58)
[2024-03-17] MEDS: ELIQUIS 5 MG PO (08:58)
[2024-03-17 11:04] LABS: Troponin I 0.061 ng/ml
--- NOTE | 2024-03-17 11:09 | PHA.VAN.FU ---
Addendum entered and electronically signed by Nichole Alcantar [facility] 03/17/24 11:26:
Agree with resident's assessment and plan below
Original Note:
Vancomycin Assessment / Plan
- Assessment
Renal Function: SCR Increasing (Increased from baseline 0.9)
WBC's are: WNL
In the past 24 hrs, patient has been: Afebrile
Concomitant Antimicrobials: Cefepime
- Dosing Plan
Continue: Vanco 1250mg Q24H
- Monitoring Plan
No level(s) ordered at this time: Consider in the next few days
- Follow Up
Pharmacy will continue to follow.
Vancomycin Follow UP
- -
Patient Age: 78
Patient Sex: Male
Vancomycin Day #: 2
Indication: Pulmonary/Respiratory
Requesting Provider: Justice
Height / Weight:
Height 5 ft 11 in
Actual Weight 77.111 kg
Pertinent Past Medical History: hx liver Ca; chemotx was in December
- Vital Signs / Lab Results
Temp Pulse Resp BP Pulse Ox
98.1 F 63 18 105/64 99
03/17/24 07:37 03/17/24 08:57 03/17/24 07:37 03/17/24 08:57 03/17/24 07:37
Lab Results - Hematology
03/16/24 03/17/24
14:16 03:22
WBC 11.3 H 7.3
Lab Results - Chemistry
03/16/24 03/17/24
14:16 03:22
BUN 32 H 31 H
Creatinine 1.2 1.3
Estimated Creat Clear 51
Albumin 4.3 3.6
Microbiology Results
03/17/24 06:23 Nasal Screen MRSA (PCR) - Final
Nose MRSA not detected - performed by PCR methodology.
[2024-03-17 11:26] VITALS: BP 93/53
[2024-03-17 11:39] VITALS: O2SAT 99
--- NOTE | 2024-03-17 13:47 | CM ---
rd manager reviewed patient's chart and met with patient and spouse at bedside, per patient he lives in a 2 story home, is independent with adl's and ambulation, no dme, patient is currently off oxygen.
Pharmacy: [facility]
PCP: Rosibel Vyas
Plan; Home no needs at discharge.
--- NOTE | 2024-03-17 13:48 | W.DS.TRANS ---
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
-
Discharge Instructions:
Discharge Diagnosis/Procedures Pneumonia
Diet Regular
Instructions:
Stand-Alone Forms:
Changes to Home Medications: Yes
Discharge Medications:
DC Medications w/original date entered in [employer]
ascorbic acid (vitamin C) 500 mg tablet (Vitamin C) 500 mg PO DAILY Supplement 01/22/23
atorvastatin 20 mg tablet 20 mg PO QPM High Cholesterol 01/22/23
cyanocobalamin (vitamin B-12) 500 mcg tablet 500 mcg PO DAILY Supplement 01/22/23
ezetimibe 10 mg tablet 10 mg PO DAILY High Cholesterol 01/22/23
finasteride 5 mg tablet 5 mg PO DAILY Urinary Issue 01/22/23
icosapent ethyl 1 gram capsule 1 g PO BID High Cholesterol 01/22/23
omega 9-qvq-tgj-fish oil 1,000 mg (120 mg-180 mg) capsule (Fish Oil) 1 cap PO BID Supplement 01/22/23
tamsulosin 0.4 mg capsule 0.4 mg PO DAILY Urinary Issue 01/22/23
tswdcsmxnbm-vucnnzfqd-mzz C-Mn 500 mg-400 mg capsule 1 cap PO BID Supplement 04/01/23
methylcellulose (laxative) 500 mg tablet (Citrucel) 500 mg PO QPM Constipation 05/17/23
apixaban 5 mg tablet (Eliquis) 5 mg PO BID Blood Clot Prevention/Tx 07/17/23
amoxicillin 500 mg tablet 2,000 mg PO DIRECTED PRN before dentist 08/02/23
acetaminophen 500 mg tablet (Tylenol Extra Strength) 1,000 mg PO Q6HPRN PRN mild pain 03/16/24
amiodarone 200 mg tablet 200 mg PO DAILY 03/16/24
carvedilol 3.125 mg tablet 3.125 mg PO BID 03/16/24
furosemide 20 mg tablet 20 mg PO DAILY 03/16/24
gabapentin 100 mg capsule 200 mg PO BIDPRN PRN mild pain 03/16/24
lisinopril 20 mg tablet 20 mg PO DAILY 03/16/24
cefuroxime axetil 500 mg tablet 500 mg PO BID #14 tabs 03/17/24
doxycycline hyclate 100 mg capsule 100 mg PO BID #14 caps 03/17/24
Home Medication Changes
Complete 7-day course of antibiotics
Pending Results: No
[2024-03-17 15:29] VITALS: BP 113/63
== END 2024-03-17 16:20 | disposition home or self-care (01) | DRG 194 ==
LOC: 4 WEST ACU 16:59
PROVIDERS: Registered Nurse; ADMITTING PHYSICIAN Hospitalist; ATTENDING PHYSICIAN Internal Medicine; EMERGENCY PHYSICIAN Emergency Medicine; FAMILY PHYSICIAN Emergency Medicine
DX: J18.9 Pneumonia, unspecified organism (principal); C22.0 Liver cell carcinoma; I42.8 Other cardiomyopathies; I50.22 Chronic systolic (congestive) heart failure; C79.51 Secondary malignant neoplasm of bone; C77.9 Secondary and unspecified malignant neoplasm of lymph node, unspecified; N40.0 Benign prostatic hyperplasia without lower urinary tract symptoms; I48.0 Paroxysmal atrial fibrillation; E78.00 Pure hypercholesterolemia, unspecified; I35.0 Nonrheumatic aortic (valve) stenosis; D63.8 Anemia in other chronic diseases classified elsewhere; G47.30 Sleep apnea, unspecified; R41.89 Other symptoms and signs involving cognitive functions and awareness; I11.0 Hypertensive heart disease with heart failure; E04.1 Nontoxic single thyroid nodule; K76.0 Fatty (change of) liver, not elsewhere classified; I25.10 Atherosclerotic heart disease of native coronary artery without angina pectoris; K74.60 Unspecified cirrhosis of liver; Z96.651 Presence of right artificial knee joint; Z87.440 Personal history of urinary (tract) infections; Z87.01 Personal history of pneumonia (recurrent); Z79.01 Long term (current) use of anticoagulants; Z87.891 Personal history of nicotine dependence; Z92.21 Personal history of antineoplastic chemotherapy; Z86.79 Personal history of other diseases of the circulatory system; Z11.52 Encounter for screening for COVID-19
CPT/HCPCS: 71046; 80053; 83880; 84145; 84484; 85025; 85027; 87040; 87641; 87811; 93005; 97162; 99285

== ENCOUNTER → 2024-04-07 16:11 | Outpatient (REF) | payer MEDICARE, SELFPAY ==
[2024-04-07 13:05] LABS: % Basophils 0.3 % (0-2); % Eosinophils 1.7 % (0-6); % Immature Granulocytes 0.2 % (0-0.5); % Lymphocytes 11.7 % (20.5-51.1); % Monocytes 8.4 % (1.7-9.3); % Neutrophils 77.7 % (42.2-75.2); Absolute Eosinophils 0.1 10^3/uL (0-0.7); Absolute Lymphocytes 0.8 10^3/uL (1.2-3.4); Absolute Monocytes 0.5 10^3/uL (0.1-0.6); Hematocrit 30.1 % (39.0-52.0); Hemoglobin 9.6 g/dL (13.0-18.0); Mean Corp Hgb Conc. 31.9 g/dL (33.0-37.0); Mean Corpuscular Hgb 28.3 pg (27.0-31.0); Mean Corpuscular Volume 88.8 fL (80.0-94.0); Mean Platelet Volume 11.3 fL (7.4-10.4); Platelet Count 228 10^3/uL (130-400); Red Blood Cell Count 3.39 10^6/uL (4.70-6.10); Red Cell Dist. Width 16.9 % (11.5-14.5); White Blood Cell Count 6.4 10^3/uL (4.8-10.8)
[2024-04-07 14:16] LABS: ALT (SGPT) 127 U/L (0-50); AST (SGOT) 100 U/L (17-59); Albumin 3.5 g/dl (3.5-5.0); Alkaline Phosphatase 900 U/L (38-126); Blood Urea Nitrogen 29 mg/dl (9-20); Calcium 8.7 mg/dl (8.4-10.2); Carbon Dioxide 17 mmol/L (22-30); Chloride 109 mmol/L (98-107); Glucose 120 mg/dl (70-99); Potassium 4.2 mmol/L (3.5-5.1); Sodium 144 mmol/L (135-145); Total Bilirubin 1.2 mg/dl (0.2-1.3); Total Protein 6.3 g/dl (6.3-8.2); eGFR 47.95
[2024-04-07 14:44] LABS: TSH Reflex To Free T4 1.72 uIU/ml (0.47-4.68)
[2024-04-07 14:53] LABS: Hepatitis B Surface Antigen Negative (Negative)
[2024-04-07 15:04] LABS: Hepatitis B Core Ab, Total Negative (Negative); Hepatitis B Surface Antibody Negative
== END ==
LOC: OIDL 16:11
PROVIDERS: ATTENDING PHYSICIAN Internal Medicine Hematology & Oncology
DX: C22.0 Liver cell carcinoma (principal)
CPT/HCPCS: 80053; 84443; 85025; 86704; 86706; 87340

== ENCOUNTER → 2024-04-08 12:43 | Outpatient (REF) | payer MEDICARE, SELFPAY ==
[2024-04-10 15:18] LABS: Adrenocorticotropic Hormone 12.6 pg/mL (7.2-63.3)
== END ==
LOC: REG 12:43
PROVIDERS: ATTENDING PHYSICIAN Internal Medicine Hematology & Oncology; FAMILY PHYSICIAN Emergency Medicine
DX: C22.0 Liver cell carcinoma (principal); C77.2 Secondary and unspecified malignant neoplasm of intra-abdominal lymph nodes; C79.51 Secondary malignant neoplasm of bone; C78.7 Secondary malignant neoplasm of liver and intrahepatic bile duct
CPT/HCPCS: 36415; 82024

== ENCOUNTER → 2024-04-11 10:22 | Outpatient (REF) | payer MEDICARE, SELFPAY | LOC: RAD 10:22 | PROVIDERS: ATTENDING PHYSICIAN Emergency Medicine; FAMILY PHYSICIAN Emergency Medicine | DX: S49.91XA Unspecified injury of right shoulder and upper arm, initial encounter (principal) | CPT/HCPCS: 73030 ==

== ENCOUNTER 2024-04-13 13:57 | Inpatient (IN) | payer MEDICARE, SELFPAY ==
[2024-04-13] VITALS (13 sets, daily range): BP systolic 78–104; BP diastolic 60–75; PULSE 76–77; BMI 26.9; BMI 26.6
[2024-04-13 09:14] LABS: % Basophils 0.4 % (0-2); % Eosinophils 1.4 % (0-6); % Immature Granulocytes 0.4 % (0-0.5); % Lymphocytes 9.7 % (20.5-51.1); % Monocytes 10.9 % (1.7-9.3); % Neutrophils 77.2 % (42.2-75.2); Absolute Eosinophils 0.1 10^3/uL (0-0.7); Absolute Lymphocytes 0.8 10^3/uL (1.2-3.4); Absolute Monocytes 0.9 10^3/uL (0.1-0.6); Absolute Neutrophils 6.3 10^3/uL (1.4-6.5); Hematocrit 27.8 % (39.0-52.0); Hemoglobin 8.9 g/dL (13.0-18.0); Mean Corpuscular Hgb 27.2 pg (27.0-31.0); Mean Platelet Volume 10.7 fL (7.4-10.4); Nucleated Red Blood Cells % 0 % (-); Platelet Count 232 10^3/uL (130-400); Red Blood Cell Count 3.27 10^6/uL (4.70-6.10); Red Cell Dist. Width 17.3 % (11.5-14.5); White Blood Cell Count 8.1 10^3/uL (4.8-10.8)
[2024-04-13 09:21] LABS: Ammonia < 9 umol/L (9-30)
[2024-04-13 09:22] LABS: ALT (SGPT) 197 U/L (0-50); AST (SGOT) 188 U/L (17-59); Albumin 3.3 g/dl (3.5-5.0); Alkaline Phosphatase 714 U/L (38-126); Blood Urea Nitrogen 48 mg/dl (9-20); Calcium 8.2 mg/dl (8.4-10.2); Carbon Dioxide 16 mmol/L (22-30); Chloride 107 mmol/L (98-107); Estimated Creatinine Clearance 37 ml/min; Glucose 101 mg/dl (70-99); Potassium 4.5 mmol/L (3.5-5.1); Sodium 138 mmol/L (135-145); Total Bilirubin 1.2 mg/dl (0.2-1.3); Total Protein 6.1 g/dl (6.3-8.2); eGFR 38.29
--- NOTE | 2024-04-13 09:52 | ED.GENMED ---
History of Present Illness
<Armand Penaloza MD, Resident - Last Filed: 04/13/24 12:49>
General
Chief Complaint: Weakness
Source: patient and family
Time Seen by Provider: 04/13/24 09:09
Travel History
Have you traveled to any high risk areas for coronavirus over the past 14 days?: No
Have you had any contact with someone who has COVID-19?: No
Do you have any symptoms of coronavirus? Fever > 100 degrees, chills, cough, shortness of breath, sore throat, loss of taste or smell, muscle aches, or headache?: No
History of Present Illness
History of Present Illness:
79-year-old male with metastatic hepatocellular carcinoma on ipilimumab (started on 04-09-24), severe aortic stenosis, chronic heart failure with reduced ejection fraction, and paroxysmal atrial fibrillation is here due to worsening weakness and
right humerus fracture. He has been experiencing progressive weakness and fatigue for the past few weeks. On 04-11-24, he heard a pop in his right shoulder while pushing himself up trying to get out of bed. Went to the urgent care and was found to
have an acute nondisplaced oblique fracture of the surgical neck and proximal metaphysis of the right humerus with osteopenia. He was put in a sling and given tramadol. On 04-12-24, he started feeling weak and unsteady on his feet; he was unable to
stand without help or support. Prior to that, he would require assistance with ambulation and activities but was able to do much of it independently. States that the pain in his right shoulder gets worse with movement of his feet.
Past History
<Armand Penaloza MD, Resident - Last Filed: 04/13/24 12:49>
Past History
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
Social History
Tobacco: Former smoker
Alcohol: None
Drug: None
Personal:
Living: with family
Review of Systems
<Armand Penaloza MD, Resident - Last Filed: 04/13/24 12:49>
Review of Systems
Allergies reviewed?: Yes
Other source history: family
Constitutional: Reports fatigue and other (weakness); Denies fever
EENT: Reports no symptoms
Respiratory: Reports no symptoms
Cardiac: Reports no symptoms
ABD/GI: Reports anorexia; Denies abdominal pain, nausea, vomiting or diarrhea
: Reports no symptoms
Musculoskeletal: Reports other (right shoulder and arm pain)
Skin: Reports other (access port R upper chest wall)
Neurological: Reports no symptoms
Endocrine: Reports no symptoms
Psychiatric: Reports no symptoms
Phy Exam
<Armand Penaloza MD, Resident - Last Filed: 04/13/24 12:49>
General Physical Exam
General Presentation: well appearing and no apparent distress
General Skin: warm and dry
General Habitus: normal
General Mental: alert
General Hydration: appears well hydrated
ENT Exam
ENT Exam: EOMI, pharynx normal, neck supple and normocephalic
Eye Exam
Eye Exam: PERRL, cornea clear and conjunctiva normal
Cardiovascular Exam
Cardiovascular Exam: regular rate/rhythm, no edema, normal peripheral pulses and systolic murmur
Pulmonary Exam
Pulmonary Exam: lungs clear, no respiratory distress, no rales, no crackles, no rhonchi, no stridor, no wheezing and no cough
Gastrointestinal Exam
Gastrointestinal Exam: non tender, soft and no pulsatile mass
Neurological Exam
Neurological Exam: alert, oriented x3, no motor deficits and speech normal
Musculoskeletal Exam
Musculoskeletal Exam: other (right shoulder pain; limited range of motion; tenderness)
Skin Exam
Skin Exam: normal color, warm/dry, no rash and no petechia
Psychiatric Exam
Psychiatric Exam: normal mood/affect
Course
<Armand Penaloza MD, Resident - Last Filed: 04/13/24 12:49>
Orders/Labs/Results
Orders:
Orders
04/13/24 08:56
IV Insert/Care/Rem.- Treatment PRN
04/13/24 09:00
Ammonia Urgent
Complete Blood Count/With Diff Urgent
Comprehensive Metabolic Panel Urgent
04/13/24 09:05
EKG [Electrocardiogram (*1)] Urgent
Reason for Study: Fatigue / Weakness
EKG- Treatment ONCE
04/13/24 09:51
Orthostatic VS- Treatment ONCE
HYDROmorphone [Dilaudid] 0.25 mg IV NOW STA
04/13/24 10:24
Sling Right-Treatment ONCE
04/13/24 10:25
0.9% Sodium Chloride 500 ml [Nss] 500 ml IV BOLUS
04/13/24 10:39
Angel Placement- Treatment ONCE
Reason for insertion: Acute Retention
04/13/24 10:54
Prothrombin Time Urgent
Urinalysis Reflex To Culture Urgent
Date Specimen was Collected: 04/13/24
Time Specimen was Collected: 10:42
Abnormal Lab Results
04/13/24 04/13/24
09:00 10:54
RBC 3.27 L 10^6/uL
(4.70-6.10)
Hgb 8.9 L g/dL
(13.0-18.0)
Hct 27.8 L %
(39.0-52.0)
MCHC 32.0 L g/dL
(33.0-37.0)
RDW 17.3 H %
(11.5-14.5)
MPV 10.7 H fL
(7.4-10.4)
Absolute Lymphs (auto) 0.8 L 10^3/uL
(1.2-3.4)
Absolute Monos (auto) 0.9 H 10^3/uL
(0.1-0.6)
Neutrophils % 77.2 H %
(42.2-75.2)
Lymphocytes % 9.7 L %
(20.5-51.1)
Monocytes % 10.9 H %
(1.7-9.3)
PT 22.9 H Sec
(11.4-14.6)
Carbon Dioxide 16 L mmol/L
(22-30)
BUN 48 H mg/dl
(9-20)
Creatinine 1.8 H mg/dL
(0.7-1.3)
Glucose 101 H mg/dl
(70-99)
Calcium 8.2 L mg/dl
(8.4-10.2)
AST 188 H U/L
(17-59)
ALT 197 H U/L
(0-50)
Alkaline Phosphatase 714 H U/L
(38-126)
Ammonia < 9 L umol/L
(9-30)
Total Protein 6.1 L g/dl
(6.3-8.2)
Albumin 3.3 L g/dl
(3.5-5.0)
04/13/24 09:00
04/13/24 09:00
Vital Signs
Initial and Last Documented VS:
Initial Vital Signs
Temp Pulse Resp
98.1 F 75 14
04/13/24 08:57 04/13/24 08:57 04/13/24 08:57
Last Documented Vital Signs
Temp Pulse Resp BP Pulse Ox
98.1 F 81 19 94/68 90
04/13/24 08:57 04/13/24 12:30 04/13/24 12:30 04/13/24 12:00 04/13/24 12:30
<Ari Mcgarry, DO - Last Filed: 04/13/24 10:39>
Orders/Labs/Results
Orders:
Orders
04/13/24 08:56
IV Insert/Care/Rem.- Treatment PRN
04/13/24 09:00
Ammonia Urgent
Complete Blood Count/With Diff Urgent
Comprehensive Metabolic Panel Urgent
04/13/24 09:05
EKG [Electrocardiogram (*1)] Urgent
Reason for Study: Fatigue / Weakness
EKG- Treatment ONCE
04/13/24 09:51
Orthostatic VS- Treatment ONCE
HYDROmorphone [Dilaudid] 0.25 mg IV NOW STA
04/13/24 10:24
Sling Right-Treatment ONCE
04/13/24 10:25
0.9% Sodium Chloride 500 ml [Nss] 500 ml IV BOLUS
04/13/24 10:39
Angel Placement- Treatment ONCE
Reason for insertion: Acute Retention
04/13/24 10:54
Prothrombin Time Urgent
Urinalysis Reflex To Culture Urgent
Date Specimen was Collected: 04/13/24
Time Specimen was Collected: 10:42
Abnormal Lab Results
04/13/24 04/13/24
09:00 10:54
RBC 3.27 L 10^6/uL
(4.70-6.10)
Hgb 8.9 L g/dL
(13.0-18.0)
Hct 27.8 L %
(39.0-52.0)
MCHC 32.0 L g/dL
(33.0-37.0)
RDW 17.3 H %
(11.5-14.5)
MPV 10.7 H fL
(7.4-10.4)
Absolute Lymphs (auto) 0.8 L 10^3/uL
(1.2-3.4)
Absolute Monos (auto) 0.9 H 10^3/uL
(0.1-0.6)
Neutrophils % 77.2 H %
(42.2-75.2)
Lymphocytes % 9.7 L %
(20.5-51.1)
Monocytes % 10.9 H %
(1.7-9.3)
PT 22.9 H Sec
(11.4-14.6)
Carbon Dioxide 16 L mmol/L
(22-30)
BUN 48 H mg/dl
(9-20)
Creatinine 1.8 H mg/dL
(0.7-1.3)
Glucose 101 H mg/dl
(70-99)
Calcium 8.2 L mg/dl
(8.4-10.2)
AST 188 H U/L
(17-59)
ALT 197 H U/L
(0-50)
Alkaline Phosphatase 714 H U/L
(38-126)
Ammonia < 9 L umol/L
(9-30)
Total Protein 6.1 L g/dl
(6.3-8.2)
Albumin 3.3 L g/dl
(3.5-5.0)
04/13/24 09:00
04/13/24 09:00
Vital Signs
Initial and Last Documented VS:
Initial Vital Signs
Temp Pulse Resp
98.1 F 75 14
04/13/24 08:57 04/13/24 08:57 04/13/24 08:57
Last Documented Vital Signs
Temp Pulse Resp BP Pulse Ox
98.1 F 81 19 94/68 90
04/13/24 08:57 04/13/24 12:30 04/13/24 12:30 04/13/24 12:00 04/13/24 12:30
<Ari Mcgarry DO - Last Filed: 04/13/24 10:39>
MDM/Problems Addressed
MDM/Problems Addressed:
Hepatocellular cancer, acute kidney injury, transaminitis, chronic heart failure, chronic anticoagulation, severe aortic stenosis
<Armand Penaloza MD, Resident - Last Filed: 04/13/24 12:49>
*Critical Care Note
Total Time (30-74mins, 75-104mins- exclusive of procedures): Not Applicable
<DO Jany Herman Last Filed: 04/13/24 10:39>
*Pulse Oximetry
Patient hypoxic: no
*EKG
Interpreted by ED Provider?: Yes
Interpretation: abnormal
Rate: normal
Rhythm: sinus
Interval: long QT
QRS Pattern: other (Incomplete left bundle)
Ischemia: non-specific ST changes
*[employer] Interpretation
Rate: normal
Interpretation: normal
Rhythm: sinus
Data Reviewed
Review of Other/Old Records Reveals: Discharge Summary (Discharge summary from March 17)
Further Testing Considered But Not Given:
Considered head CT but no focal weakness and no injury to the head
<DO Jany Herman Last Filed: 04/13/24 10:39>
Patient Management
Discussion with other providers: Hospitalist and President (Case discussed with hematology/oncology)
ED Attending Note
<Armand Penaloza MD, Resident - Last Filed: 04/13/24 12:49>
-
Portions of this chart may have been created with voice recognition software.� Occasional wrong word or��sound alike� substitutions may have occurred due to the inherent limitations of voice recognition software.
<DO Jany Herman Last Filed: 04/13/24 10:39>
ED Attending Note
Patient seen and examined by attending physician: Yes
I performed a history and physical exam of patient and discussed management with resident, I reviewed resident's note and agree with documented findings and plan of care.: Yes
ED Attending Note:
79-year-old male with unfortunate history of hepatocellular cancer. Recently got treated with immunotherapy. Now extremely weak. Also recently had an insufficiency fracture to the right shoulder after trying to help himself up. Today he could
not even get up to get to the bathroom. No fevers. Has not been eating well but has been trying to drink plenty of water. Does admit that he has not urinated since last night. Denies focal weakness. Exam: Generally weak but no lower extremity
edema. No focal motor deficits. Mild suprapubic tenderness. Heart has a loud systolic high-pitched murmur. Right chest wall port noted with no surrounding redness. Assessment and plan: Likely symptomatology from immunotherapy. Case discussed
with oncology. Give gentle IV fluids. Angel catheter for 800 cc in his bladder. Do not suspect infection. Gentle hydration and admit
Discharge Plan
Departure
Patient Disposition: Admit
Date of Disposition: 04/13/24
Time of Disposition: 10:39
Presentation/result/management discussed w/ accepting MD/DO: Hospitalist
Discharge Problem:
Hepatocellular carcinoma, Weakness
Prescriptions:
No Action
atorvastatin 20 mg Tablet
20 mg PO QPM
cyanocobalamin (vitamin B-12) 500 mcg Tablet
500 mcg PO DAILY
ascorbic acid (vitamin C) [Vitamin C] 500 mg Tablet
500 mg PO DAILY
tamsulosin 0.4 mg Capsule
0.4 mg PO DAILY
finasteride 5 mg Tablet
5 mg PO DAILY
ezetimibe 10 mg Tablet
10 mg PO DAILY
omega 8-ptp-sst-fish oil [Fish Oil] 1,000 mg (120 mg-180 mg) Capsule
1 cap PO BID
icosapent ethyl 1 gram Capsule
1 g PO BID
lghfnjhpwpg-otpvsbtlb-ahk C-Mn 500-400 mg Capsule
1 cap PO BID
Citrucel 500 mg Tablet
500 mg PO QPM
Eliquis 5 mg Tablet
5 mg PO BID
lisinopril 20 mg Tablet
20 mg PO DAILY
acetaminophen [Tylenol Extra Strength] 500 mg Tablet
1,000 mg PO HS
carvedilol 3.125 mg Tablet
3.125 mg PO BID
furosemide 20 mg Tablet
20 mg PO MOWEFR
gabapentin 100 mg Capsule
200 mg PO BIDPRN PRN (Reason: mild pain)
amiodarone 200 mg tablet
200 mg PO DAILY
loperamide 2 mg Tablet
2 mg PO BIDPRN PRN (Reason: diarrhea)
tramadol 50 mg Tablet
50 mg PO Q8HPRN PRN (Reason: severe pains)
mirtazapine 7.5 mg Tablet
7.5 mg PO HS
ipilimumab 50 mg/10 mL (5 mg/mL) Solution
0 mg IV Q3W
nivolumab 100 mg/10 mL Solution
0 mg IV Q3W
Referrals:
Rosibel Vyas MD [Family Provider] -
Interventions
Interventions:
*Risk Screen - Suicide Last Done: 04/13/24 08:57
*General Assessment Last Done: 04/13/24 08:57
*Neglect/Abuse Screening Last Done: 04/13/24 08:57
ED- Fall Risk Assessment Last Done: 04/13/24 08:57
*ED COVID-19 Vaccine History Last Done: 04/13/24 08:57
ED- Cardiac Assessment Last Done: 04/13/24 08:57
ED- Neurological Assessment Last Done: 04/13/24 08:57
ED- Pulmonary Assessment Last Done: 04/13/24 08:57
Discharge Date and Time
Print Language: LATVIAN
[2024-04-13] MEDS: DILAUDID 0.25 MG IV (10:00)
[2024-04-13] MEDS: NSS 500 IV (10:55)
[2024-04-13 11:16] LABS: INR 2.04; PT 22.9 Sec (11.4-14.6); Urine Albumin Negative (Neg - Trace); Urine Bilirubin Negative (Negative); Urine Character Clear (Clear); Urine Color Yellow; Urine Glucose Negative (Negative); Urine Ketone Negative (Negative); Urine Leukocyte Negative (Negative); Urine Nitrite Negative (Negative); Urine Occult Blood Negative (Negative); Urine Specific Gravity 1.015 (<1.030); Urine Urobilinogen Negative (Neg - 1+)
--- NOTE | 2024-04-13 14:43 | HPS.HSE ---
Addendum entered and electronically signed by Shana Vela MD 04/13/24 15:55:
Hold lisinopril and Lasix secondary to acute kidney injury and hypotension
Addendum entered and electronically signed by Shana Vela MD 04/13/24 15:54:
79-year-old male with hepatocellular carcinoma with mets to bone with generalized weakness. Patient had right humeral fracture-nontraumatic 2 days ago and has a sling.
I personally performed a history and physical exam of the patient and discussed management with the resident. I reviewed the resident's note and agree with the documented findings and plan of care HPI/CC except changes in my documentation
Right shoulder in a sling
Bilateral rales noted
Abdomen soft and nontender
No edema bilateral lower extremities
Good distal strength bilateral lower extremities
# Acute kidney injury
Likely secondary to postrenal causes because patient had retention of urine 800 mL
Enlarged prostate also there
Angel catheter placement
Poor p.o. intake could also be causing prerenal
IV fluids
Check abdomen x-ray to rule out constipation
# Hepatocellular carcinoma on immune checkpoint inhibitor Yervoy and Opdivo now
History of chemoembolization
Follows with Dr. Vannesa Abarca
Elevated liver tests noted
Will consult
Hold statin
# Right humeral fracture-nontraumatic likely secondary to metastasis and pathological
Continue with sling and conservative management
# Deconditioning-PT OT
# Paroxysmal atrial fibrillation-continue amiodarone, Coreg, Eliquis
# Anemia likely secondary to malignancy
# Chronic heart failure with reduced ejection fraction-continue Lasix Saturday and check weights
# Hypertension-continue Coreg and lisinopril
# Hyperlipidemia-continue Zetia. Hold statin with elevated LFTs
# Enlarged prostate-continue Flomax and finasteride
# Anxiety and depression-continue fluoxetine and Remeron
# Severe aortic stenosis
# Ex-smoker
# DVT prophylaxis-Eliquis
# CODE STATUS discussed with patient and at bedside. DNR
Discussed with at bedside
Discussed with ER attending
time more than 75 min
Original Note:
Family Physician
-
Family Physician: Rosibel Vyas MD
Chief Complaint
-
Weakness
History of Present Illness
This is a 79-year-old man with past medical history of HFrEF, paroxysmal atrial fibrillation, aortic stenosis, hepatocellular carcinoma with metastasis to the bone on Ipilimumab, presents to ED due to worsening weakness, fatigue and right humeral
fracture that occurred 2 days ago. Patient reports he was recently started on ipilimumab for hepatocellular carcinoma and has been experiencing progressive weakness and fatigue since initiation. Two days ago, while trying to push himself up from
his bed, he heard a pop in his right shoulder prompting him to get evaluated at the urgent care. Evaluation with x-ray showed an acute nondisplaced oblique fracture of the surgical neck and proximal metaphysis of the right humerus with osteopenia.
He was put in a sling and given tramadol. He continued to feel weak and unsteady, requiring significant help from his . His typical baseline requires mild assistance with ambulation, otherwise he does everything himself. But he has been
experiencing worsening difficulty being independent for the past 5 days. He reports his constant weakness and fatigue prompted him to come to the emergency department for evaluation. In addition, he has had decreased appetite and difficulty
walking to the bathroom to relieve his bladder.
Medical History
Past Medical History
Past Medical History: Reports Other (CAD, aortic stenosis, hypertension, hypercholesterolemia, hepatocellular carcinoma with metastasis to the bone, BPH, anxiety, depression, hypercholesterolemia)
Past Surgical History: Reports Other (Right total knee replacement, appendectomy)
Social History
Tobacco: Former Smoker (Last smoked 17 years ago)
Alcohol: None
Drug: None
Personal:
Living: With Family
Employment: Retired
Family History
Family History: Not pertinent
Allergies / Home Medications
Allergies reflects when Allergies were last updated in [facility].
Home Medications with original date entered in [facility]
Allergy/Medication List:
Allergies
Allergy/AdvReac Type Severity Reaction Status Date / Time
No Known Allergies Allergy Verified 03/16/24 13:41
Home Medications
ascorbic acid (vitamin C) 500 mg tablet (Vitamin C) 500 mg PO DAILY Supplement 01/22/23
atorvastatin 20 mg tablet 20 mg PO QPM High Cholesterol 01/22/23
cyanocobalamin (vitamin B-12) 500 mcg tablet 500 mcg PO DAILY Supplement 01/22/23
ezetimibe 10 mg tablet 10 mg PO DAILY High Cholesterol 01/22/23
finasteride 5 mg tablet 5 mg PO DAILY Urinary Issue 01/22/23
icosapent ethyl 1 gram capsule 1 g PO BID High Cholesterol 01/22/23
omega 3-qfl-fup-fish oil 1,000 mg (120 mg-180 mg) capsule (Fish Oil) 1 cap PO BID Supplement 01/22/23
tamsulosin 0.4 mg capsule 0.4 mg PO DAILY Urinary Issue 01/22/23
khosutbzvjz-yjkpynyig-lla C-Mn 500 mg-400 mg capsule 1 cap PO BID Supplement 04/01/23
methylcellulose (laxative) 500 mg tablet (Citrucel) 500 mg PO QPM Constipation 05/17/23
apixaban 5 mg tablet (Eliquis) 5 mg PO BID Blood Clot Prevention/Tx 07/17/23
acetaminophen 500 mg tablet (Tylenol Extra Strength) 1,000 mg PO HS 03/16/24
amiodarone 200 mg tablet 200 mg PO DAILY 03/16/24
carvedilol 3.125 mg tablet 3.125 mg PO BID 03/16/24
furosemide 20 mg tablet 20 mg PO MOWEFR 03/16/24
gabapentin 100 mg capsule 200 mg PO BIDPRN PRN mild pain 03/16/24
lisinopril 20 mg tablet 20 mg PO DAILY 03/16/24
ipilimumab 50 mg/10 mL (5 mg/mL) intravenous solution 0 mg IV Q3W 04/13/24
loperamide 2 mg tablet 2 mg PO BIDPRN PRN diarrhea 04/13/24
mirtazapine 7.5 mg tablet 7.5 mg PO HS 04/13/24
nivolumab 100 mg/10 mL intravenous solution 0 mg IV Q3W 04/13/24
tramadol 50 mg tablet 50 mg PO Q8HPRN PRN severe pains 04/13/24
Review of Systems
-
A 12 point ROS was completed and negative except as noted: Yes
Physical Exam
Vital Signs
Vital Signs
Temp Pulse Resp BP Pulse Ox
98.1 F 83 13 99/75 96
04/13/24 08:57 04/13/24 14:00 04/13/24 14:00 04/13/24 13:00 04/13/24 14:00
Physical Exam
General: Well Developed, Well Nourished and No Apparent Distress
HEENT: NormoCephalic and Anicteric
Respiratory: Non Labored Respirations
Cardiac: S1/S2
GI: Soft, Non Tender and Non Distended
Musculoskeletal: No Edema and Other (Right shoulder in sling, right shoulder pain with limited range of motion and tender to palpation)
Skin: Warm
Neuro: AO x 3
Psych: Calm
Laboratory Results
-
04/13/24 09:00
04/13/24 09:00
Laboratory Results
PT 22.9 Sec (11.4-14.6) H 04/13/24 10:54
INR 2.04 04/13/24 10:54
Total Bilirubin 1.2 mg/dl (0.2-1.3) 04/13/24 09:00
AST 188 U/L (17-59) H 04/13/24 09:00
ALT 197 U/L (0-50) H 04/13/24 09:00
Alkaline Phosphatase 714 U/L (38-126) H 04/13/24 09:00
Impression/Plan
-
IMPRESSION/ PLAN
#Hepatocellular carcinoma on Immunotherapy
#Weakness and Fatigue
-On Immunotherapy treatment, with last treatment 04/09
-Consult Hematology/Oncology.
-Follows [place] [facility]
-Transaminitis on Labs
-PT Eval and treat
-IV fluids
#Right Humeral Fracture post injury
-Right shoulder currently in a sling.
-Pain medication as needed.
-Bowel regimen with Miralax, Docusate
-PT eval
#FILOMENA
-Angel catheter placed in ED 800 cc in bladder
-Gentle Hydration with IV fluids
-Creatinine 1.8 (Baseline 1.0)
-Monitor Cre.
-Abdominal Xray to evaluate for obstruction.
#Paroxysmal Atrial Fibrillation
-Continue rate control with Coreg
-Patient on Amiodarone. Slightly concerning, especially with Elevated LFTS.
-Continue Anticoagulation with Eliquis
#Anemia of Chronic Disease
-Hgb 8.9. No signs of active bleeding.
-Monitor Hgb level.
# HFrEF
-Denies shortness of breath, Not in distress.
-On Lasix M,W,F
-Monitor Weight while in-house.
#Essential hypertension
-Continue coreg, lisinopril
#Hypercholesterolemia
-Continue statin, Zetia
#BPH
-Continue finasteride, tamsulosin
#Anxiety/depression
-Continue fluoxetine
-Mirtazapine at bedtime.
#Severe aortic stenosis
DVT prophylaxis-Eliquis
CODE STATUS-DNR
[2024-04-13] MEDS: LIDOCAINE 4% PATCH 1 PATCH TOPICAL (18:37)
[2024-04-13] MEDS: NSS 1000 IV (18:38)
[2024-04-13] MEDS: FIBERCON 625 MG PO (18:38)
[2024-04-13] MEDS: REMERON 7.5 MG PO (21:06)
[2024-04-13] MEDS: COREG 3.125 MG PO (21:06)
[2024-04-13] MEDS: TYLENOL 1000 MG PO (21:06)
[2024-04-13] MEDS: ELIQUIS 5 MG PO (21:07)
--- NOTE | 2024-04-13 22:28 | CON.ONC ---
Impression
Impression
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
Severe aortic stenosis
Pathologic fracture of surgical neck and proximal metaphysis of right humerus
Plan
Plan
Suspect his weakness may have been related to a vagal episode or tramadol, as he is feeling much better now.
Blood pressure noted to be as low as 78/61 earlier today, and this relative hypotension may be contributing to his weakness.
Hemoglobin 8.9 representing stability from 03/17, multifactorial.
Creatinine slightly elevated at 1.8 versus baseline of 1.3. Continue IV fluids.
LFTs are elevated although this is in the setting of known hepatocellular carcinoma.
Monitor kidney function, consider starting steroid if failure to improve with hydration as kidney damage can be a side effect of immunotherapy.
Okay for discharge home tomorrow if kidney function improving.
Thank you for consult, will follow along with you.
Patient History
History of Present Illness
79-year-old man with hepatocellular cancer extensively metastatic to bone. He did poorly on initial therapy with development of toxicities attributable to both Avastin and checkpoint inhibitor. Recent scan showed disease progression and he was
started on Opdivo/Yervoy. He states that yesterday, he leaned against something and felt the bone step in his right arm. After that, he felt very weak and it took 2 of his sons to get him up. Since hospital admission, he has been feeling better.
He feels that he has tolerated Opdivo Yervoy well so far. He states the weakness was due to the fracture. Non-operative treatment is planned with caveat that he has not yet seen orthopedics. He does have a history of severe aortic stenosis,
chronic heart failure with reduced ejection fraction and paroxysmal atrial fibrillation.
Past-Medical/Surgical History
Past Medical History
Past Medical History: Reports Other (CAD, aortic stenosis, hypertension, hypercholesterolemia, hepatocellular carcinoma with metastasis to the bone, BPH, anxiety, depression, hypercholesterolemia)
Past Surgical History: Reports Other (Right total knee replacement, appendectomy)
Social History
Tobacco: Former Smoker (Last smoked 17 years ago)
Alcohol: None
Drug: None
Personal:
Living: With Family
Employment: Retired
Family History
Family History: Not pertinent
Patient Medication
�Medication �Instructions �Recorded �Confirmed �Last Taken �Type
ascorbic acid (vitamin C) 500 mg 500 mg PO DAILY Supplement 01/22/23 04/13/24 04/12/24 History
tablet (Vitamin C)
atorvastatin 20 mg tablet 20 mg PO QPM High Cholesterol 01/22/23 04/13/24 04/12/24 History
cyanocobalamin (vitamin B-12) 500 500 mcg PO DAILY Supplement 01/22/23 04/13/24 04/12/24 History
mcg tablet
ezetimibe 10 mg tablet 10 mg PO DAILY High Cholesterol 01/22/23 04/13/24 04/12/24 History
finasteride 5 mg tablet 5 mg PO DAILY Urinary Issue 01/22/23 04/13/24 04/12/24 History
icosapent ethyl 1 gram capsule 1 g PO BID High Cholesterol 01/22/23 04/13/24 04/12/24 History
omega 1-eoa-qka-fish oil 1,000 mg 1 cap PO BID Supplement 01/22/23 04/13/24 04/12/24 History
(120 mg-180 mg) capsule (Fish Oil)
tamsulosin 0.4 mg capsule 0.4 mg PO DAILY Urinary Issue 01/22/23 04/13/24 04/12/24 History
veqaunryzad-ptovdctwj-sqw C-Mn 500 1 cap PO BID Supplement 04/01/23 04/13/24 04/12/24 History
mg-400 mg capsule
methylcellulose (laxative) 500 mg 500 mg PO QPM Constipation 05/17/23 04/13/24 04/12/24 History
tablet (Citrucel)
apixaban 5 mg tablet (Eliquis) 5 mg PO BID Blood Clot 07/17/23 04/13/24 04/12/24 History
Prevention/Tx
acetaminophen 500 mg tablet 1,000 mg PO HS 03/16/24 04/13/24 04/12/24 History
(Tylenol Extra Strength)
amiodarone 200 mg tablet 200 mg PO DAILY 03/16/24 04/13/24 04/12/24 History
carvedilol 3.125 mg tablet 3.125 mg PO BID 03/16/24 04/13/24 04/12/24 History
furosemide 20 mg tablet 20 mg PO MOWEFR 03/16/24 04/13/24 04/10/24 History
gabapentin 100 mg capsule 200 mg PO BIDPRN PRN mild pain 03/16/24 04/13/24 Unknown History
lisinopril 20 mg tablet 20 mg PO DAILY 03/16/24 04/13/24 04/12/24 History
ipilimumab 50 mg/10 mL (5 mg/mL) 0 mg IV Q3W 04/13/24 04/13/24 04/09/24 History
intravenous solution
loperamide 2 mg tablet 2 mg PO BIDPRN PRN diarrhea 04/13/24 04/13/24 Unknown History
mirtazapine 7.5 mg tablet 7.5 mg PO HS 04/13/24 04/13/24 04/12/24 History
nivolumab 100 mg/10 mL intravenous 0 mg IV Q3W 04/13/24 04/13/24 04/09/24 History
solution
tramadol 50 mg tablet 50 mg PO Q8HPRN PRN severe pains 04/13/24 04/13/24 04/13/24 History
Active Medications
Generic Name Dose Route Start Last Admin
Trade Name Freq PRN Reason Stop Dose Admin
Acetaminophen 1,000 mg 04/13/24 22:00 04/13/24 21:06
Acetaminophen 500 Mg Tablet PO 05/11/24 21:59 1,000 mg
HS KATEY Administration
Amiodarone HCl 200 mg 04/14/24 08:00
Amiodarone 200 Mg Tablet PO 05/12/24 07:59
DAILY KATEY
Apixaban 5 mg 04/13/24 20:00 04/13/24 21:07
Apixaban (Eliquis) 5 Mg Tablet PO 05/11/24 19:59 5 mg
BID KATEY Administration
Ascorbic Acid 500 mg 04/14/24 08:00
Ascorbic Acid 500 Mg Tablet PO 05/12/24 07:59
DAILY KATEY
Bisacodyl 10 mg 04/13/24 15:39
Bisacodyl 10 Mg Rectal Suppository RECTAL 05/11/24 15:38
[id number] PRN
constipation
Calcium Polycarbophil 625 mg 04/13/24 18:00 04/13/24 18:38
Calcium Polycarbophil 625 Mg Tablet PO 05/11/24 17:59 625 mg
QPM KATEY Administration
Carvedilol 3.125 mg 04/13/24 20:00 04/13/24 21:06
Carvedilol 3.125 Mg Tablet PO 05/11/24 19:59 3.125 mg
BID KATEY Administration
Cyanocobalamin 500 mcg 04/14/24 08:00
Cyanocobalamin 1,000 Mcg Tablet PO 05/12/24 07:59
DAILY KATEY
Ezetimibe 10 mg 04/14/24 08:00
Ezetimibe (Zetia) 10 Mg Tablet PO 05/12/24 07:59
DAILY KATEY
Finasteride 5 mg 04/14/24 08:00
Finasteride 5 Mg Tablet PO 05/12/24 07:59
DAILY KATEY
Gabapentin 200 mg 04/13/24 15:39
Gabapentin 100 Mg Capsule PO 05/11/24 15:38
BIDPRN PRN
mild pain
Heparin Sodium (Porcine) 500 unit 04/13/24 16:45 04/13/24 16:36
Heparin Flush Pf (100 Unit/Ml) 5 Ml Syringe IV 05/11/24 16:44 500 unit
PER PROTOCOL KATEY Administration
Sodium Chloride 1,000 mls @ 80 mls/hr 04/13/24 16:00 04/13/24 18:38
Nss IV 1,000 mls
[id number] KATEY Administration
Lidocaine 1 patch 04/13/24 15:39 04/13/24 18:37
Lidocaine 4% Topical Patch TOPICAL 05/11/24 15:38 1 patch
DAILY KATEY Administration
Protocol
Loperamide HCl 2 mg 04/13/24 17:48
Loperamide 2 Mg Capsule PO 05/11/24 17:47
BIDPRN PRN
diarrhea
Mirtazapine 7.5 mg 04/13/24 22:00 04/13/24 21:06
Mirtazapine 7.5 Mg Regular Release Tablet PO 05/11/24 21:59 7.5 mg
HS KATEY Administration
Patch Removal 0 patch 04/14/24 20:00
Remove Lidocaine Patch REMOVE 05/12/24 19:59
DAILY@2000 KATEY
Polyethylene Glycol 17 grams 04/13/24 15:39
Polyethylene Glycol Powder 17 Grams Packet PO 05/11/24 15:38
DAILYPRN PRN
constipation
Senna/Docusate Sodium 1 tablet 04/13/24 15:39
Docusate W/Senna (Annabella-Colace) Tablet PO 05/11/24 15:38
BIDPRN PRN
constipation
Sodium Chloride 0 flush 04/13/24 17:00
Sodium Chloride 0.9% (Flush) Syringe IV 05/11/24 16:59
PER PROTOCOL KATEY
Tamsulosin HCl 0.4 mg 04/14/24 08:00
Tamsulosin 0.4 Mg Capsule PO 05/12/24 07:59
DAILY KATEY
Tramadol HCl 50 mg 04/13/24 15:39
Tramadol Hcl 50 Mg Tablet PO 05/11/24 15:38
Q8HPRN PRN
severe pains
Review of Systems
-
History Source: Patient
All Other Systems: Reviewed and Negative
Physical Exam
-
General: Well Developed, Well Nourished and Appears Chronically Ill
Labs
Lab Results
WBC 8.1 10^3/uL (4.8-10.8) 04/13/24 09:00
RBC 3.27 10^6/uL (4.70-6.10) L 04/13/24 09:00
Hgb 8.9 g/dL (13.0-18.0) L 04/13/24 09:00
Hct 27.8 % (39.0-52.0) L 04/13/24 09:00
MCV 85.0 fL (80.0-94.0) 04/13/24 09:00
MCH 27.2 pg (27.0-31.0) 04/13/24 09:00
MCHC 32.0 g/dL (33.0-37.0) L 04/13/24 09:00
RDW 17.3 % (11.5-14.5) H 04/13/24 09:00
Plt Count 232 10^3/uL (130-400) 04/13/24 09:00
MPV 10.7 fL (7.4-10.4) H 04/13/24 09:00
Abs Immat Gran (auto) 0.0 10^3/uL (0-0.05) 04/13/24 09:00
Absolute Neuts (auto) 6.3 10^3/uL (1.4-6.5) 04/13/24 09:00
Absolute Lymphs (auto) 0.8 10^3/uL (1.2-3.4) L 04/13/24 09:00
Absolute Monos (auto) 0.9 10^3/uL (0.1-0.6) H 04/13/24 09:00
Absolute Eos (auto) 0.1 10^3/uL (0-0.7) 04/13/24 09:00
Absolute Basos (auto) 0.0 10^3/uL (0-0.2) 04/13/24 09:00
Immature Gran % 0.4 % (0-0.5) 04/13/24 09:00
Neutrophils % 77.2 % (42.2-75.2) H 04/13/24 09:00
Lymphocytes % 9.7 % (20.5-51.1) L 04/13/24 09:00
Monocytes % 10.9 % (1.7-9.3) H 04/13/24 09:00
Eosinophils % 1.4 % (0-6) 04/13/24 09:00
Basophils % 0.4 % (0-2) 04/13/24 09:00
Creatinine 1.8 mg/dL (0.7-1.3) H 04/13/24 09:00
Vital Signs
Vital Signs
Temp Pulse Resp BP Pulse Ox
97.7 F 92 16 104/66 96
04/13/24 19:27 04/13/24 21:06 04/13/24 19:27 04/13/24 21:06 04/13/24 19:27
[2024-04-14] VITALS (8 sets, daily range): BP systolic 87–97; BP diastolic 59–72; PULSE 84–88; O2SAT 96–98
[2024-04-14] MEDS: ULTRAM 50 MG PO ×2 (00:39→15:38)
[2024-04-14 06:41] LABS: Hematocrit 24.7 % (39.0-52.0); Hemoglobin 8.1 g/dL (13.0-18.0); Mean Corp Hgb Conc. 32.8 g/dL (33.0-37.0); Mean Corpuscular Hgb 27.6 pg (27.0-31.0); Mean Corpuscular Volume 84.3 fL (80.0-94.0); Mean Platelet Volume 10.7 fL (7.4-10.4); Platelet Count 195 10^3/uL (130-400); Red Blood Cell Count 2.93 10^6/uL (4.70-6.10); Red Cell Dist. Width 17.5 % (11.5-14.5); White Blood Cell Count 8.3 10^3/uL (4.8-10.8)
[2024-04-14] MEDS: NSS 1000 IV (07:38)
[2024-04-14 07:50] LABS: ALT (SGPT) 181 U/L (0-50); AST (SGOT) 138 U/L (17-59); Alkaline Phosphatase 661 U/L (38-126); Blood Urea Nitrogen 50 mg/dl (9-20); Calcium 7.7 mg/dl (8.4-10.2); Carbon Dioxide 15 mmol/L (22-30); Chloride 108 mmol/L (98-107); Estimated Creatinine Clearance 39 ml/min; Glucose 87 mg/dl (70-99); Potassium 4.6 mmol/L (3.5-5.1); Sodium 140 mmol/L (135-145); Total Bilirubin 1.6 mg/dl (0.2-1.3); Total Protein 5.8 g/dl (6.3-8.2); eGFR 38.29
--- NOTE | 2024-04-14 08:08 | W.PN.HOSP.TC ---
Addendum entered and electronically signed by Shana Vela MD 04/14/24 13:02:
79-year-old male with hepatocellular carcinoma with mets to bone with generalized weakness. Patient had right humeral fracture-nontraumatic 2 days ago and has a sling.
I personally performed a history and physical exam of the patient and discussed management with the resident. I reviewed the resident's note and agree with the documented findings and plan of care HPI/CC except changes in my documentation
Right shoulder in a sling
CVS S1 S2 Normal SM at aa
Bilateral rales noted
Abdomen soft and nontender
No edema bilateral lower extremities
Good distal strength bilateral lower extremities
# Acute kidney injury
Likely secondary to postrenal causes because patient had retention of urine 800 mL
Enlarged prostate also there
Angel catheter placement
Poor p.o. intake could also be causing prerenal
IV fluids 60 ml/hr
May also be from immune checkpoint inhibitor use.
# Hepatocellular carcinoma on immune checkpoint inhibitor Yervoy and Opdivo now
History of chemoembolization
Follows with Dr. Vannesa Abarca
Elevated liver tests noted
Hold statin
# Right humeral fracture-nontraumatic likely secondary to metastasis and pathological
Continue with sling and conservative management
Ortho will chck a CT also
Conservative management suggested.
# Deconditioning-PT OT
# Paroxysmal atrial fibrillation-continue amiodarone, Coreg, Eliquis
# Anemia likely secondary to malignancy
# Chronic heart failure with reduced ejection fraction-On Lasix Saturday and check weights. CXR ordered to evaluate lungs.
# Hypertension-continue Coreg and hold lisinopril
# Hyperlipidemia-continue Zetia. Hold statin with elevated LFTs
# Enlarged prostate-continue Flomax and finasteride
# Anxiety and depression-continue fluoxetine and Remeron
# Severe aortic stenosis
# Ex-smoker
# DVT prophylaxis-Eliquis
# CODE STATUS discussed with patient and at bedside. DNR
Discussed with at bedside
Original Note:
Today's Communication/Plan
-
CXR today
Assessment / Plan
Assessment / Plan
Assessment
Hepatocellular carcinoma checkpoint inhibitors
Acute kidney injury
Right shoulder in a sling
Right femur fracture nontraumatic likely secondary to metastasis vs Pathological
Conditions present prior to admission
Paroxysmal atrial fibrillation
Anemia of chronic disease
Chronic HFrEF
Severity stenosis
Hypercholesterolemia
hypertension
BPH
Anxiety/depression
Former smoker
Plan
#Hepatocellular carcinoma on checkpoint inhibitors
-On Nivolumab/Ipilimumab
-Oncology following
-Elevated LFTs
-Hold statin
#Acute kidney injury
-Likely postrenal, Angel catheter placed in ED 800 cc in bladder
-Angel catheter placement
-gentle IV fluids
-Abdominal x-ray 04/14/2024 with no evidence of mechanical intestinal obstruction
-Creatinine 1.8 today, baseline 1.0
#Right femoral fracture-nontraumatic
-Ortho consulted, recommendation appreciated
-Continue sling and conservative management
# Deconditioning-PT OT
# Paroxysmal atrial fibrillation-continue amiodarone, Coreg, Eliquis
# Anemia likely secondary to malignancy
# Chronic heart failure with reduced ejection fraction-Hold Lasix - Check CXR today
# Hypertension-continue Coreg, Hold lisinopril
# Hyperlipidemia-continue Zetia. Hold statin with elevated LFTs
# Enlarged prostate-continue Flomax and finasteride
# Anxiety and depression-continue fluoxetine and Remeron
# Severe aortic stenosis
# Ex-smoker
DVT prophylaxis-Eliquis
CODE STATUS- DNR
Anticipated Discharge: 24 - 48 hours
Subjective/Interval History
-
Date of Service: April 14, 2024
Objective Data
-
Labs:
Laboratory Results
04/14/24
05:58
WBC 8.3
Hgb 8.1 L
Hct 24.7 L
Plt Count 195
Sodium 140
Potassium 4.6
Chloride 108 H
Carbon Dioxide 15 L
BUN 50 H
Creatinine 1.8 H
Glucose 87
Calcium 7.7 L
Total Bilirubin 1.6 H
AST 138 H
ALT 181 H
Alkaline Phosphatase 661 H
Vital Signs:
Vital Signs
Temp Pulse Resp BP Pulse Ox
98.5 F 80 16 97/64 96
04/14/24 03:11 04/14/24 03:11 04/14/24 03:11 04/14/24 03:11 04/14/24 03:11
I&O
04/13/24 04/14/24 04/15/24
06:59 06:59 06:59
Intake Total 480 / 480
Output Total 1175 / 1175
Balance -695 / -695
Review of Systems
-
All other systems: Reviewed and negative (Except as documented)
Physical Exam
-
General: No Apparent Distress
Respiratory: Clear to Auscultation
Cardiac: S1/S2
GI: Soft, Nontender and Nondistended
Musculoskeletal: No Edema
Psych: Calm
[2024-04-14] MEDS: ZETIA 10 MG PO (08:28)
[2024-04-14] MEDS: FLOMAX 0.4 MG PO (08:28)
[2024-04-14] MEDS: ELIQUIS 5 MG PO ×2 (08:30→21:33)
[2024-04-14] MEDS: COREG PO ×2 (08:30→21:23)
[2024-04-14] MEDS: PROSCAR 5 MG PO (08:30)
[2024-04-14] MEDS: VITAMIN B-12 500 MCG PO (08:30)
[2024-04-14] MEDS: VITAMIN C 500 MG PO (08:30)
[2024-04-14] MEDS: PACERONE 200 MG PO (08:30)
[2024-04-14] MEDS: LIDOCAINE 4% PATCH 1 PATCH TOPICAL (08:30)
--- NOTE | 2024-04-14 10:03 | W.PN.ONC2 ---
Today's Communication / Plan
-
Consider cardiology consult with severe aortic stenosis and HFrEF to adjust cardiac medications and diuretics -known to Dr. Richards
monitor for immune mediated toxicities
MRI L spine ordered to evaluate for cord compression
f/u ortho consult
Impression
Impression
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
Severe aortic stenosis
Pathologic fracture of surgical neck and proximal metaphysis of right humerus
hypotension -normal TSH, ATCH 04/08
FILOMENA
PAF on DOAC
LLE weakness
Plan
Plan
metastatic HCC on Nivolumab/Ipilimumab (Yervoy) s/p C1 04/09 so FILOMENA and hypotension unlikely related to immunotherapy
known osseous mets in L spine, left ischium/pubic ramus on PET 03/18 -consider MRI for further evaluation of LLE weakness
right humoral head fracture -ortho consult pending, pain management, sling
Consider cardiology consult with severe aortic stenosis and HFrEF to adjust cardiac medications and diuretics -known to Dr. Richards
Echo planned 6 weeks after initiation of immunotherapy -around 05/18
Subjective/Objective
Chief Complaint
LLE weakness when compared to RLE since Saturday, denies back pain
R arm in sling, pain with movement
creatinine unchanged 1.8
slight improvement of LFTs
Subjective
afebrile, hypotension yesterday and overnight resolved, no hypoxia
using lidoderm patch and tramadol prn pain
Vital Signs:
Vital Signs
Temp Pulse Resp BP Pulse Ox
98.6 F 88 18 91/70 97
04/14/24 08:27 04/14/24 08:27 04/14/24 08:27 04/14/24 08:27 04/14/24 08:27
Lab Results:
Laboratory Data
WBC 8.3 10^3/uL (4.8-10.8) 04/14/24 05:58
Hgb 8.1 g/dL (13.0-18.0) L 04/14/24 05:58
Plt Count 195 10^3/uL (130-400) 04/14/24 05:58
PT 22.9 Sec (11.4-14.6) H 04/13/24 10:54
INR 2.04 04/13/24 10:54
eGFR 38.29 04/14/24 05:58
Physical Exam
right arm sling
HEENT: Moist Mucous Membranes; No Jaundice
Cardiology: Normal Sinus Rhythm
Pulmonary: Clear
GI: Soft
Extremities: Pulses Present; No Edema
Neuro: Other (LLE weakness when compared to RLE)
Review of Systems
Review of Systems
ROS notable for subjective, otherwise negative
--- NOTE | 2024-04-14 11:07 | CM ---
Pt seen at bedside w/ Saray. Pt lives w/ spouse in a 4 story townhouse.
Pt has shower chair at home, previously used a cane but does not anymore as his right side functioning has limited.
Pt has hx with [facility]hab and [facility] last year. stated if HC is recommended, she would like [facility] again
confirmed she will transport pt at d/c.
denies any housing/transportation/food insecurities
confirmed [facility] pharmacy in [place], PCP confirmed.
CM will cont. to follow for updates and recommendations
Plan: Anticipating home with VN
--- NOTE | 2024-04-14 12:47 | CON.ORTHO ---
Addendum entered and electronically signed by Yrn Berry MD 04/14/24 17:12:
Patient seen and evaluated by me. CT scan has been completed and reveals a pathologic fracture of the right humerus. Surgical stabilization may be appropriate. Case to be discussed with patient and one of our sports medicine/upper extremity
specialists to determine further treatment options.
Original Note:
Consultation
-
Date/Time Consultation Requested: May 07
Date/Time Consultation Performed: May 07
Requesting Provider: Mirian
Performing Provider: Trinidad Berry
Reason for Consultation: Right proximal humerus Fx
Consultation - Orthopedics
History
Dictation#[id number]
Requested in consult by Dr. Vela to this very pleasant 79 y/o white male with PMH HTN, Hypercholesterolemia, Aortic stenosis and Liver tumor with mets to the bone and lymph node who, on Apr 07, was attempting to push himself up out of bed and
felt immediate pain in his right shoulder region. Denies LOC or prodrome. Found to have right proximal humerus fracture in the face of GHJOA. This very well could be pathologic. We have been requested to comment on further treatment.
Allergies / Home Medications
Allergy/AdvReac Type Severity Reaction Status Date / Time
No Known Allergies Allergy Verified 03/16/24 13:41
�Medication �Instructions �Recorded
ascorbic acid (vitamin C) 500 mg 500 mg PO DAILY Supplement 01/22/23
tablet (Vitamin C)
atorvastatin 20 mg tablet 20 mg PO QPM High Cholesterol 01/22/23
cyanocobalamin (vitamin B-12) 500 500 mcg PO DAILY Supplement 01/22/23
mcg tablet
ezetimibe 10 mg tablet 10 mg PO DAILY High Cholesterol 01/22/23
finasteride 5 mg tablet 5 mg PO DAILY Urinary Issue 01/22/23
icosapent ethyl 1 gram capsule 1 g PO BID High Cholesterol 01/22/23
omega 0-tpt-eii-fish oil 1,000 mg 1 cap PO BID Supplement 01/22/23
(120 mg-180 mg) capsule (Fish Oil)
tamsulosin 0.4 mg capsule 0.4 mg PO DAILY Urinary Issue 01/22/23
qcdzvfjuhyw-qaeljuazb-iir C-Mn 500 1 cap PO BID Supplement 04/01/23
mg-400 mg capsule
methylcellulose (laxative) 500 mg 500 mg PO QPM Constipation 05/17/23
tablet (Citrucel)
apixaban 5 mg tablet (Eliquis) 5 mg PO BID Blood Clot 07/17/23
Prevention/Tx
acetaminophen 500 mg tablet 1,000 mg PO HS Pain 03/16/24
(Tylenol Extra Strength)
amiodarone 200 mg tablet 200 mg PO DAILY Arrhythmia 03/16/24
carvedilol 3.125 mg tablet 3.125 mg PO BID Blood Pressure 03/16/24
furosemide 20 mg tablet 20 mg PO MOWEFR Fluid 03/16/24
Retention/Swelling
gabapentin 100 mg capsule 200 mg PO BIDPRN PRN mild pain 03/16/24
lisinopril 20 mg tablet 20 mg PO DAILY Blood Pressure 03/16/24
ipilimumab 50 mg/10 mL (5 mg/mL) 0 mg IV Q3W Cancer 04/13/24
intravenous solution
loperamide 2 mg tablet 2 mg PO BIDPRN PRN diarrhea 04/13/24
mirtazapine 7.5 mg tablet 7.5 mg PO HS Depression 04/13/24
nivolumab 100 mg/10 mL intravenous 0 mg IV Q3W Cancer 04/13/24
solution
tramadol 50 mg tablet 50 mg PO Q8HPRN PRN severe pains 04/13/24
Vital Signs / Lab Results
Temp Pulse Resp BP Pulse Ox
98.6 F 88 18 91/70 97
04/14/24 08:27 04/14/24 08:27 04/14/24 08:27 04/14/24 08:27 04/14/24 08:27
04/14/24 05:58
04/14/24 05:58
Assessment / Plan
PE: Bedside chair. Afeb. Sling in place RUE. Right shoulder skin intact. Lidocaine patch in place. Port noted. Generalized pain about the shoulder. Deferred ROM. Elbow nontender. DNVI RUE
Xrays: Right proximal humerus fracture, nondisplaced. GHJOA. No obvious bony lesions
Impression: SHER
Plan: Discussed with the patient. Although no obvious bony lesions, this could very well be pathologic. Will request CT, but will very likely not change treatment. Sling to remain RUE. No lifting or WB. Gentle elbow, wrist, hand, finger motion OK.
Ice to shoulder. Will comment further after CT, but fracture will need 4-6 weeks to heal. Will follow up outpatient with Ortho in 2 weeks for repeat xrays and to discuss progressing ROM in PT around 4 weeks if no significant displacement occurs.
Will follow up after CT
[2024-04-14] MEDS: FIBERCON 625 MG PO (17:37)
[2024-04-14] MEDS: TYLENOL 1000 MG PO (21:31)
[2024-04-14] MEDS: REMERON 7.5 MG PO (21:33)
[2024-04-15] VITALS (7 sets, daily range): BP systolic 85–99; BP diastolic 56–65; PULSE 56; BMI 20.2
[2024-04-15 06:28] LABS: % Basophils 0.2 % (0-2); % Immature Granulocytes 0.4 % (0-0.5); % Lymphocytes 11.6 % (20.5-51.1); % Monocytes 9.8 % (1.7-9.3); Absolute Eosinophils 0.1 10^3/uL (0-0.7); Absolute Lymphocytes 1.1 10^3/uL (1.2-3.4); Absolute Monocytes 0.9 10^3/uL (0.1-0.6); Absolute Neutrophils 7.3 10^3/uL (1.4-6.5); Hematocrit 25.1 % (39.0-52.0); Hemoglobin 8.4 g/dL (13.0-18.0); Mean Corp Hgb Conc. 33.5 g/dL (33.0-37.0); Mean Corpuscular Volume 86.6 fL (80.0-94.0); Mean Platelet Volume 10.6 fL (7.4-10.4); Nucleated Red Blood Cells % 0 % (-); Platelet Count 204 10^3/uL (130-400); Red Cell Dist. Width 17.1 % (11.5-14.5); White Blood Cell Count 9.4 10^3/uL (4.8-10.8)
[2024-04-15 07:39] LABS: AST (SGOT) 123 U/L (17-59); Albumin 2.9 g/dl (3.5-5.0); Blood Urea Nitrogen 58 mg/dl (9-20); Carbon Dioxide 15 mmol/L (22-30); Chloride 106 mmol/L (98-107); Estimated Creatinine Clearance 33 ml/min; Glucose 99 mg/dl (70-99); Total Bilirubin 1.8 mg/dl (0.2-1.3); Total Protein 5.7 g/dl (6.3-8.2); eGFR 31.82
[2024-04-15] MEDS: COREG PO ×2 (07:48→20:08)
[2024-04-15 07:50] LABS: ALT (SGPT) 154 U/L (0-50); Alkaline Phosphatase 633 U/L (38-126); Calcium 7.6 mg/dl (8.4-10.2); Potassium 4.7 mmol/L (3.5-5.1); Sodium 135 mmol/L (135-145)
[2024-04-15] MEDS: PROSCAR 5 MG PO (07:52)
[2024-04-15] MEDS: FLOMAX 0.4 MG PO (07:52)
[2024-04-15] MEDS: VITAMIN C 500 MG PO (07:52)
[2024-04-15] MEDS: ZETIA 10 MG PO (07:52)
[2024-04-15] MEDS: PACERONE 200 MG PO (07:52)
[2024-04-15] MEDS: ELIQUIS 5 MG PO ×2 (07:52→20:09)
[2024-04-15] MEDS: VITAMIN B-12 500 MCG PO (08:01)
[2024-04-15] MEDS: LIDOCAINE 4% PATCH 1 PATCH TOPICAL (08:02)
--- NOTE | 2024-04-15 08:02 | W.PN.ONC2 ---
Today's Communication / Plan
-
Await patient decision regarding approval to proceed with right shoulder replacement.
Await MRI spine reading
Impression
Impression
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
Severe aortic stenosis
Pathologic fracture of surgical neck and proximal metaphysis of right humerus
hypotension -normal TSH, ATCH 04/08
FILOMENA
PAF on DOAC
LLE weakness
Plan
Plan
metastatic HCC on Nivolumab/Ipilimumab (Yervoy) s/p C1 04/09 so FILOMENA and hypotension unlikely related to immunotherapy
known osseous mets in L spine, left ischium/pubic ramus on PET 03/18 -MRI L-Spine done but awaiting read for further evaluation of LLE weakness
right humoral head fracture -ortho recommending right shoulder replacement
Consider cardiology consult with severe aortic stenosis and HFrEF to adjust cardiac medications and diuretics -known to Dr. Richards
Subjective/Objective
Chief Complaint
ACS Oncology F/U
Subjective
Just seen by ortho who is suggesting right TSR (he is right handed) for improved function right UE.
Vital Signs:
Vital Signs
Temp Pulse Resp BP Pulse Ox
97.5 F 81 16 91/61 97
04/15/24 07:49 04/15/24 07:49 04/15/24 07:49 04/15/24 07:49 04/15/24 07:49
Lab Results:
Laboratory Data
WBC 9.4 10^3/uL (4.8-10.8) 04/15/24 06:18
Hgb 8.4 g/dL (13.0-18.0) L 04/15/24 06:18
Plt Count 204 10^3/uL (130-400) 04/15/24 06:18
PT 22.9 Sec (11.4-14.6) H 04/13/24 10:54
INR 2.04 04/13/24 10:54
eGFR 31.82 04/15/24 06:18
Physical Exam
Cardiology: S1 and S2
Pulmonary: Clear
GI: Soft
--- NOTE | 2024-04-15 08:45 | W.PN.UPDATE ---
Update Note
Progress Note Update
Mr. Sandy is resting comfortably in bed this morning, though he does endorse continued aching pain about his right shoulder. He reports he is comfortable at rest.
Directed exam of the right shoulder reveals expected effusion about the right shoulder. Tenderness to palpation over the anterior aspect of the proximal humerus. Range of motion deferred secondary to known fracture. Patient able to flex and
extend wrist, full range of motion of hand. Sensation intact light touch. Capillary refill less than [address] Right Shoulder 04/15/2024 IMPRESSION:
There is acute comminuted pathologic fracture through a 6.5 cm lytic osseous metastasis in the proximal right humerus.
The fracture is associated with 5 mm impaction and 5 mm anterolateral displacement of the major distal fracture fragment.
Julio Cesar's CT scan was reviewed with him today which reveals a large lytic lesion of his proximal humerus, in addition to his proximal humerus fracture. Both surgical and nonsurgical treatment options were discussed in detail. We discussed the
possibility of proceeding with a reverse total shoulder replacement under the direction of Dr. Henson. This would provide relief from his current symptoms, and allow for maintained function of the shoulder. Unfortunately, given his current
medical comorbidities, surgical intervention could be risky. The risks, benefits, alternatives, recovery process and potential complications were discussed in detail. He would like to discuss his options with his . Orthopedics will continue
to follow along. He does believe he has bony metastasis in his spine, but is not positive.
--I was able to speak with oncology who did not report any contraindication to proceeding with surgery. Would appreciate input from medicine as well.
-- Continue with immobilization of right upper extremity with sling.
-- Nonweightbearing to right upper extremity.
-- Continue pain control per primary. Ice for pain and edema control.
-- We will [place] back with Julio Cesar in the morning to discuss surgical intervention further. Please reach out with any additional orthopedic questions or concerns.
--- NOTE | 2024-04-15 08:51 | W.PN.HOSP.TC ---
Today's Communication/Plan
-
.
Assessment / Plan
Assessment / Plan
Assessment
Hepatocellular carcinoma checkpoint inhibitors
Acute kidney injury
Right shoulder in a sling
Right femur fracture nontraumatic likely secondary to metastasis vs Pathological
Conditions present prior to admission
Paroxysmal atrial fibrillation
Anemia of chronic disease
Chronic HFrEF
Severity stenosis
Hypercholesterolemia
hypertension
BPH
Anxiety/depression
Former smoker
Plan
#Hepatocellular carcinoma on checkpoint inhibitors
-On Nivolumab/Ipilimumab
-Oncology following
-Elevated LFTs
-Hold statin
#Acute kidney injury
-Likelypre renal from dehydration and postrenal, Londono catheter placed in ED 800 cc in bladder
-Londono catheter placement, voiding trial today
-Abdominal x-ray 04/14/2024 with no evidence of mechanical intestinal obstruction
-Creatinine 2.1 today, rising (with baseline 1.0-1.2)
-Gentle IV fluids later today.
# Severe aortic stenosis
# Chronic heart failure with reduced ejection fraction
-[facility] cardiology consulted today
-Holding Lasix, Outpatient MWF
-On Coreg
-Chest x-ray 04/14/2024 cardiomegaly with borderline pulmonary edema
#Right femoral fracture-nontraumatic
-Continue with immobilization of right upper extremity with sling.
-Nonweightbearing to right upper extremity.
-Continue pain control
-CT upper extremity acute comminuted pathologic fracture through a 6.5 cm lytic osseous metastasis in the proximal right humerus. The fracture is associated with 5 mm impaction and 5 mm anterolateral displacement of the major distal fracture fragment
-Ortho consulted, recommendation appreciated. Both surgical and nonsurgical treatment options were discussed in details with the possibility of proceeding with a reverse total shoulder replacement under the direction of Dr. Henson.
-RCRI index- Low risk for proposed surgery.
-Medically stable for OR from our perspective
# Deconditioning-PT OT
# Paroxysmal atrial fibrillation-continue amiodarone, Coreg, Eliquis
# Anemia likely secondary to malignancy
# Chronic heart failure with reduced ejection fraction-Hold Lasix - Check CXR today
# Hypertension-continue Coreg, Hold lisinopril
# Hyperlipidemia-continue Zetia. Hold statin with elevated LFTs
# Enlarged prostate-continue Flomax and finasteride
# Anxiety and depression-continue fluoxetine and Remeron
# Severe aortic stenosis
# Ex-smoker
DVT prophylaxis-Eliquis
CODE STATUS- DNR
Anticipated Discharge: > 48 hours
Subjective/Interval History
-
Patient examined at bedside. Patient complained of mild shortness of breath at rest and on exertion. He denies chest pain, denies palpitations
Objective Data
-
Labs:
Laboratory Results
04/15/24
06:18
WBC 9.4
Hgb 8.4 L
Hct 25.1 L
Plt Count 204
Sodium 135
Potassium 4.7
Chloride 106
Carbon Dioxide 15 L
BUN 58 H
Creatinine 2.1 H
Glucose 99
Calcium 7.6 L
Total Bilirubin 1.8 H
AST 123 H
ALT 154 H
Alkaline Phosphatase 633 H
Vital Signs:
Vital Signs
Temp Pulse Resp BP Pulse Ox
97.5 F 81 16 91/61 97
04/15/24 07:49 04/15/24 07:49 04/15/24 07:49 04/15/24 07:49 04/15/24 07:49
I&O
04/14/24 04/15/24 04/16/24
06:59 06:59 06:59
Intake Total 1670 / 1670
Output Total 1675 / 1675
Balance -5 / -5
Review of Systems
-
All other systems: Reviewed and negative (except as documented. )
Physical Exam
-
General: Other (Right shoulder sling)
Respiratory: Rales (Mild)
Cardiac: S1/S2
GI: Soft, Nontender and Nondistended
Genito-urinary: Other (londono catheter present draining kumar brown urine. )
Musculoskeletal: No Edema
Skin: Warm
Neuro: AO x 3
--- NOTE | 2024-04-15 10:59 | CM ---
Patient seen at bedside. Patient states that he is having shoulder surgery next week. Patient seen by PT and patient is unsteady and needing max 2 person assist to get out of bed. PT stating that patient is not safe at this time to return to home
and may benefit with SNF placement if he is discharged pending shoulder surgery. CM updated physician and await clarification of medical treatment plan. CM will continue to follow for discharge planning needs.
Plan; home with VN vs SNF pending medical treatment plan
--- NOTE | 2024-04-15 14:18 | CON.CAR ---
Addendum entered and electronically signed by Monica Lombardo DO 04/15/24 16:59:
Spoke with Dr. Henson regarding orthopedic plan for nonemergent reverse total shoulder replacement, anticipated surgical date 04/21/24. He is higher CV risk. Optimize his clinical status prior to surgery; Please see below for plan. Will resume
Eliquis with plan to hold for 48 hours prior to surgery.
Addendum entered and electronically signed by Monica Lombardo, 04/15/24 16:51:
I saw and evaluated the patient. I reviewed the resident�s note and agree with findings and plan as documented in the resident�s note.
I had the pleasure to meet Tirso Miller in [id number] along with his at bedside. Tirso is well-known to our office and follows with Dr. Jessica Richards. He is a 79-year-old male with PMH of HFrEF, hypertension, paroxysmal A-fib on Eliquis,
metastatic HCC on ipilimumab (started on 04/06/2024) with bone mets, severe who presented to ED with worsening weakness and right humeral fracture sustained on 04/11/2024 while trying to push himself out of bed. He was diagnosed with metastatic
hepatocellular carcinoma at the time of TAVR evaluation with no plans to pursue TAVR at this time. He denies chest pain or pressure, worsening shortness of breath, syncope/near syncope. He denies palpitations. He does have chronic lower extremity
edema. A CT scan ordered 04/14/2024 was remarkable for pathologic fracture of the right humerus and shoulder replacement. Orthopedics was consulted and is planning a reverse total shoulder replacement. Cardiology was consulted for preoperative
cardiac risk assessment.
General: AAOX3. Sitting out of bed to chair
Heart: Regular, positive S1/S2, 3/6 PAULA
Lungs: CTA b/l, negative wheezes/rales/rhonchi
Abd: Positive BS, NT/ND, neg rebound/rigidity/guarding
Ext: +edema. Right arm in sling
Plan:
Pathologic nontraumatic right humeral fracture, right handed
-CT scan acute comminuted pathologic fracture through a 6.5 cm lytic osseous metastasis in the proximal right humerus associated with 5 mm impaction and 5 mm anterolateral displacement of the major distal fracture fragment.
-Patient is in considerable pain; management per orthopedics
-Orthopedics considering him for reverse total shoulder replacement with Dr. Henson, date to be determined
-Oncology consult and recommendations reviewed
-Tirso has severe aortic stenosis with peak/mean AV gradients 74/50mmHg (TAVR work up on hold awaiting response to treatment for metastatic HCC) with known ischemic cardiomyopathy (EF 40% 11/2023 echo, PAF and recent hospitalization for pneumonia who
has acute on chronic renal insufficiency this admission with creatinine 2.1 baseline 1.1-1.2 and borderline hypotension with poor functional status. Fortunately, volume status appears slightly dry with several days of poor appetite, he has no chest
pain suggestive of angina and he is maintaining sinus rhythm.
-Outpatient furosemide 20 mg Saturday currently being held and he received a 500 normal saline bolus
-No further fluids and will monitor volume status closely
-Outpatient lisinopril 10 mg daily currently held
-Avoid hypotension
-Repeat labs tomorrow to reassess renal function
-Check twelve-lead EKG
-Continue telemetry monitoring. Continue low-dose carvedilol with hold parameters. Continue amiodarone daily
-Repeat limited 2D echocardiogram to reassess LV systolic function, MR and AAS gradients
-If surgery is anticipated would need to hold Eliquis 48 hours prior to surgery and resume once safer post procedure
-Intermediate orthopedic surgery being considered; he is higher CV risk for surgical procedures. Call placed to orthopedics to discuss
Will follow with you
Original Note:
Consultation
Consultation Request
Date/Time Consultation Requested: 04/15/2024 10: 57
Date/Time Consultation Performed: 04/15/2024 1: 05
Requesting Provider: Shana Vela
Performing Provider: Monica Lombardo
Reason for Consultation: Hypotension, preop evaluation
Medical History
-
Chief Complaint: Hypotension
History of Present Illness:
[employer] Architect: Jessica Richards MD
Julio Cesar is a 79-year-old male with PMH of HFrEF, essential hypertension, paroxysmal A-fib on Eliquis, metastatic HCC on ipilimumab (started on 04/06/2024), severe AAS who presented to ED with worsening weakness and right humeral fracture sustained
on 04/11/2024 while trying to push himself out of bed. While in the ED, blood pressure was 94/68, pulse 81, respiratory 19, afebrile saturating at 90% on room air. A CT scan ordered 04/14/2024 was remarkable for pathologic fracture of the right
humerus and shoulder replacement. Orthopedics was consulted and is planning a reverse total shoulder replacement. Cardiology was consulted due to patient's low blood pressure and evaluation/risk stratification for possible surgical intervention.
Past Medical History
Past Medical History: Arrhythmias (Paroxysmal A-fib), CAD, Cancer (HCC), CHF (HFrEF), Hypercholesterolemia, NIDDM and Renal Failure
Past Surgical History: Appendectomy and Orthopedic (Right total knee replacement)
Social History
Tobacco: Former Smoker (Quit 17 years ago)
Alcohol: None
Drug: None
Personal:
Living: With Family
Employment: Retired
Family History
Family History: Reviewed & Not Pertinent
Allergies / Home Medications
Allergy/AdvReac Type Severity Reaction Status Date / Time
No Known Allergies Allergy Verified 03/16/24 13:41
�Medication �Instructions �Recorded �Confirmed �Type
ascorbic acid (vitamin C) 500 mg 500 mg PO DAILY Supplement 01/22/23 04/13/24 History
tablet (Vitamin C)
atorvastatin 20 mg tablet 20 mg PO QPM High Cholesterol 01/22/23 04/13/24 History
cyanocobalamin (vitamin B-12) 500 500 mcg PO DAILY Supplement 01/22/23 04/13/24 History
mcg tablet
ezetimibe 10 mg tablet 10 mg PO DAILY High Cholesterol 01/22/23 04/13/24 History
finasteride 5 mg tablet 5 mg PO DAILY Urinary Issue 01/22/23 04/13/24 History
icosapent ethyl 1 gram capsule 1 g PO BID High Cholesterol 01/22/23 04/13/24 History
omega 4-yxp-smc-fish oil 1,000 mg 1 cap PO BID Supplement 01/22/23 04/13/24 History
(120 mg-180 mg) capsule (Fish Oil)
tamsulosin 0.4 mg capsule 0.4 mg PO DAILY Urinary Issue 01/22/23 04/13/24 History
nkgkegkutfy-gwkjqtcmg-ddt C-Mn 500 1 cap PO BID Supplement 04/01/23 04/13/24 History
mg-400 mg capsule
methylcellulose (laxative) 500 mg 500 mg PO QPM Constipation 05/17/23 04/13/24 History
tablet (Citrucel)
apixaban 5 mg tablet (Eliquis) 5 mg PO BID Blood Clot 07/17/23 04/13/24 History
Prevention/Tx
acetaminophen 500 mg tablet 1,000 mg PO HS Pain 03/16/24 04/13/24 History
(Tylenol Extra Strength)
amiodarone 200 mg tablet 200 mg PO DAILY Arrhythmia 03/16/24 04/13/24 History
carvedilol 3.125 mg tablet 3.125 mg PO BID Blood Pressure 03/16/24 04/13/24 History
furosemide 20 mg tablet 20 mg PO MOWEFR Fluid 03/16/24 04/13/24 History
Retention/Swelling
gabapentin 100 mg capsule 200 mg PO BIDPRN PRN mild pain 03/16/24 04/13/24 History
lisinopril 20 mg tablet 20 mg PO DAILY Blood Pressure 03/16/24 04/13/24 History
ipilimumab 50 mg/10 mL (5 mg/mL) 0 mg IV Q3W Cancer 04/13/24 04/13/24 History
intravenous solution
loperamide 2 mg tablet 2 mg PO BIDPRN PRN diarrhea 04/13/24 04/13/24 History
mirtazapine 7.5 mg tablet 7.5 mg PO HS Depression 04/13/24 04/13/24 History
nivolumab 100 mg/10 mL intravenous 0 mg IV Q3W Cancer 04/13/24 04/13/24 History
solution
tramadol 50 mg tablet 50 mg PO Q8HPRN PRN severe pains 04/13/24 04/13/24 History
Review of Systems
-
History Source: Patient and Family
All other systems: Negative unless noted
Constitutional: No Symptoms
Respiratory: No Symptoms
Cardiac: No Symptoms
Abdomen/GI: No Symptoms
Musculoskeletal: Joint Pain and Other (Right shoulder pain)
Neurological: Weakness
Physical Exam
Vital Signs
Temp Pulse Resp BP Pulse Ox
98.1 F 82 16 96/60 98
04/15/24 11:25 04/15/24 11:25 04/15/24 11:25 04/15/24 11:25 04/15/24 11:25
Lab Results
04/15/24 06:18
04/15/24 06:18
Physical Exam
General: Well Developed, No Apparent Distress, Comfortable and Pain (Right shoulder pain); Negative Fever or Chills
Respiratory: Clear and Non Labored Respirations; Negative Wheezes, Crackles or Rhonchi
Cardiac: S1/S2 and Irregular Rhythm; Negative Murmur, Rub or Peripheral Edema
GI: Soft, Non Tender, Non Distended and Normal Bowel Sounds
Skin: Warm
Neuro: Awake, Alert, Oriented and AO x 3
Psych: Calm
Impression / Plan
-
Assessment: 79-year-old male PMH of HFrEF, severe , paroxysmal A-fib, HCC now with bone metastasis who presented to ED with weakness and pathologic fracture of right humerus.
Impression:
Preop evaluation
Low blood pressure reading
HCC with bone metastasis
Pathologic right humeral fracture
Severe aortic stenosis
Paroxysmal A-fib
Renal insufficiency
Plan:
Preop evaluation
-With prior history of atherosclerotic heart disease, HFrEF, preop creatinine of 2.1, patient's risks of complications except 11% to be just congested at high risk based on revised cardiac risk index.
-Patient is unable to perform 4 METS and therefore stands a considerable high risk for the planned procedure.
-Last echocardiography 11/05/2023 reports moderate to severe with worsened MR.
-May require a stress echo for further evaluation.
Low blood pressure reading
-BP has been chronically low in the office, systolic pressure mostly in the low 90s.
-Most likely due to severe vs diastolic dysfunction.
-His home lisinopril was was decreased from 20 mg daily to 10 mg daily in the office, consider stopping lisinopril at this point.
-Consider reducing Coreg to 1.56 PO BID.
-Follow blood pressure.
HCC with bone metastasis
-Pathologic right humeral fracture
Severe aortic stenosis
Paroxysmal A-fib
Renal insufficiency
Data Reviewed
-
EKG: Tracing Personally Visualized and interpreted, Report Reviewed by me and Discussed with Physician
Radiology: Image Personally Visualized and interpreted, Report Reviewed by me and Discussed with Physician
CT Scan: Image Personally Visualized and interpreted, Report Reviewed by me and Discussed with Physician
MRI: Image Personally Visualized and interpreted, Report Reviewed by me and Discussed with Physician
Labs: Labs Reviewed by me and Discussed with Physician
Old Records: Reviewed
--- NOTE | 2024-04-15 17:04 | PTOTSP ---
Pt continues to require heavy assistance of two people to stand. This pt was completely ambulatory without an assistive device prior to admission, and WALKED into Urgent Care when he initially injured his shoulder. He is unable to void. Am concerned
there is something neurological going on in spinal cord or brain, with known metastatic cancer. Will continue to follow.
[2024-04-15] MEDS: FIBERCON 625 MG PO (17:24)
[2024-04-15] MEDS: REMERON 7.5 MG PO (21:50)
[2024-04-15] MEDS: TYLENOL 1000 MG PO (21:50)
[2024-04-16] VITALS (7 sets, daily range): BP systolic 95–115; BP diastolic 64–70; PULSE 86; BMI 24.0
[2024-04-16 06:30] LABS: Hematocrit 26.6 % (39.0-52.0); Hemoglobin 8.7 g/dL (13.0-18.0); Mean Corp Hgb Conc. 32.7 g/dL (33.0-37.0); Mean Corpuscular Hgb 27.9 pg (27.0-31.0); Mean Corpuscular Volume 85.3 fL (80.0-94.0); Mean Platelet Volume 10.2 fL (7.4-10.4); Platelet Count 236 10^3/uL (130-400); Red Blood Cell Count 3.12 10^6/uL (4.70-6.10); Red Cell Dist. Width 16.9 % (11.5-14.5); White Blood Cell Count 9.9 10^3/uL (4.8-10.8)
[2024-04-16 06:46] LABS: ALT (SGPT) 174 U/L (0-50); AST (SGOT) 137 U/L (17-59); Albumin 3.1 g/dl (3.5-5.0); Alkaline Phosphatase 739 U/L (38-126); Blood Urea Nitrogen 59 mg/dl (9-20); Calcium 7.9 mg/dl (8.4-10.2); Carbon Dioxide 14 mmol/L (22-30); Chloride 102 mmol/L (98-107); Estimated Creatinine Clearance 30 ml/min; Glucose 94 mg/dl (70-99); Potassium 4.4 mmol/L (3.5-5.1); Sodium 133 mmol/L (135-145); Total Bilirubin 2.1 mg/dl (0.2-1.3); eGFR 33.74
[2024-04-16] MEDS: VITAMIN B-12 500 MCG PO (07:24)
[2024-04-16] MEDS: LIDOCAINE 4% PATCH 1 PATCH TOPICAL (07:24)
[2024-04-16] MEDS: VITAMIN C 500 MG PO (07:24)
[2024-04-16] MEDS: PACERONE 200 MG PO (07:24)
[2024-04-16] MEDS: PROSCAR 5 MG PO (07:24)
[2024-04-16] MEDS: FLOMAX 0.4 MG PO (07:24)
[2024-04-16] MEDS: COREG PO ×2 (07:24→21:29)
[2024-04-16] MEDS: ZETIA 10 MG PO (07:24)
[2024-04-16] MEDS: ELIQUIS 5 MG PO ×2 (07:24→21:30)
--- NOTE | 2024-04-16 07:58 | W.PN.UPDATE ---
Update Note
Progress Note Update
Patient's CT scan unfortunately revealed pathologic fracture involving the proximal humerus. He has been utilizing sling which does help with his pain. Distal neurovascular was intact this morning. Recommendations are for him to undergo reverse
right total shoulder arthroplasty after Eliquis washout. This will likely occur on next Saturday with Dr. Henson.
--- NOTE | 2024-04-16 08:02 | W.PN.HOSP.TC ---
Today's Communication/Plan
-
.
Assessment / Plan
Assessment / Plan
Assessment
Hepatocellular carcinoma checkpoint inhibitors
Acute kidney injury
Right shoulder in a sling
Right femur fracture nontraumatic likely secondary to metastasis vs Pathological
Acidosis
Conditions present prior to admission
Paroxysmal atrial fibrillation
Anemia of chronic disease
Chronic HFrEF
Severity stenosis
Hypercholesterolemia
hypertension
BPH
Anxiety/depression
Former smoker
Plan
#Hepatocellular carcinoma on checkpoint inhibitors
-On Nivolumab/Ipilimumab
-Oncology following
-Elevated LFTs
-Hold statin
#Acute kidney injury
-s/p Angel catheter.
-Urinary retention still present. straight cath x2 overnight. Constipation??? Bisacodyl IN today.
-Creatinine 1.8>>2.1>>2.0 today (with baseline 1.0-1.2)
-Per cardiology discretion, monitor volume status off IV fluids.
-Abdominal x-ray 04/14/2024 with no evidence of mechanical intestinal obstruction
# Severe aortic stenosis
# Chronic heart failure with reduced ejection fraction
-Cardiology input appreciated. Monitor Volume status off IV fluids.
-Continue Holding Lasix, Outpatient MWF
-Continue Coreg with Holding Parameters.
-Chest x-ray 04/14/2024 cardiomegaly with borderline pulmonary edema
-Repeat limited 2D echocardiogram today to reassess LV systolic function, MR and AAS gradients
#Right femoral fracture-nontraumatic
-Continue with immobilization of right upper extremity with sling.
-Nonweightbearing to right upper extremity.
-Continue pain control. Aggressive bowel regimen
-CT upper extremity acute comminuted pathologic fracture through a 6.5 cm lytic osseous metastasis in the proximal right humerus. The fracture is associated with 5 mm impaction and 5 mm anterolateral displacement of the major distal fracture fragment
-Ortho following. nonemergent reverse total shoulder replacement planned, anticipated surgical date 04/21/24
-Cardiology consulted for preoperative cardiac risk assessment.- He is higher CV risk. Optimize his clinical status prior to surgery
#Hyponatremia
-Euvolemic on exam.
-Monitor NA off IVF
#Acidosis
-Bicarb tablets
-Trend level.
#Acute Cough
-Robitussin prn
# Deconditioning-PT OT
# Paroxysmal atrial fibrillation-continue amiodarone, Coreg, Eliquis(Hold 48hrs before surgery)
# Anemia likely secondary to malignancy
# Chronic heart failure with reduced ejection fraction-Hold Lasix
# Hypertension-continue Coreg, Hold lisinopril
# Hyperlipidemia-continue Zetia. Hold statin with elevated LFTs
# Enlarged prostate-continue Flomax and finasteride
# Anxiety and depression-continue fluoxetine and Remeron
# Severe aortic stenosis
# Ex-smoker
DVT prophylaxis-Eliquis
CODE STATUS- DNR
Anticipated Discharge: > 48 hours
Subjective/Interval History
-
Patient examined at bedside. Patient complaining of ongoing non productive cough. passing gas. Has NOT had a Bowel movement in the past 24hours. Overnight, straight cath twice.
Objective Data
-
Labs:
Laboratory Results
04/16/24
05:38
WBC 9.9
Hgb 8.7 L
Hct 26.6 L
Plt Count 236
Sodium 133 L
Potassium 4.4
Chloride 102
Carbon Dioxide 14 L*
BUN 59 H
Creatinine 2.0 H
Glucose 94
Calcium 7.9 L
Total Bilirubin 2.1 H
AST 137 H
ALT 174 H
Alkaline Phosphatase 739 H
Vital Signs:
Vital Signs
Temp Pulse Resp BP Pulse Ox
97.6 F 89 16 102/69 98
04/16/24 03:25 04/16/24 03:25 04/16/24 03:25 04/16/24 03:25 04/16/24 03:25
I&O
04/15/24 04/16/24 04/17/24
06:59 06:59 06:59
Intake Total 1670 / 1670 960 / 960
Output Total 1675 / 1675 1100 / 1100
Balance -5 / -5 -140 / -140
Review of Systems
-
All other systems: Reviewed and negative (except as documented. )
Physical Exam
-
General: No Apparent Distress
Respiratory: Clear to Auscultation; Negative Wheezes or Rales
Cardiac: S1/S2
GI: Soft, Nontender, Nondistended and Normal Bowel Sounds
Neuro: Awake
[2024-04-16] MEDS: DULCOLAX 10 MG RECTAL (10:19)
[2024-04-16] MEDS: SODIUM BICARBONATE 650 MG PO ×2 (10:19→21:30)
--- NOTE | 2024-04-16 11:27 | W.PN.ONC2 ---
Today's Communication / Plan
-
pain management
follow LFTs
PT/OT
Impression
Impression
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
Pathologic fracture of surgical neck and proximal metaphysis of right humerus
Severe aortic stenosis
HFrEF
hypotension -normal TSH, ATCH 04/08
FILOMENA
rising Tbili, transaminitis
PAF on DOAC
LLE weakness, MRI L spine no cord compression
Plan
Plan
metastatic HCC on Nivolumab/Ipilimumab ([facility]ervoy) s/p C1 04/09 so FILOMENA and hypotension unlikely related to immunotherapy
known osseous mets in L spine, left ischium/pubic ramus on PET 03/18 -MRI L-Spine no cord compression
right humoral head fracture -ortho recommending right shoulder replacement
nonemergent reverse total shoulder replacement planned
Elevated LFTs
Subjective/Objective
Chief Complaint
right shoulder pain
left leg weakness
denies back pain
Subjective
afebrile, no hypoxia or hypotension
Vital Signs:
Vital Signs
Temp Pulse Resp BP Pulse Ox
97.5 F 81 16 95/68 97
04/16/24 07:00 04/16/24 07:00 04/16/24 07:00 04/16/24 07:00 04/16/24 07:45
Lab Results:
Laboratory Data
WBC 9.9 10^3/uL (4.8-10.8) 04/16/24 05:38
Hgb 8.7 g/dL (13.0-18.0) L 04/16/24 05:38
Plt Count 236 10^3/uL (130-400) 04/16/24 05:38
PT 22.9 Sec (11.4-14.6) H 04/13/24 10:54
INR 2.04 04/13/24 10:54
eGFR 33.74 04/16/24 05:38
Physical Exam
right arm sling
HEENT: Moist Mucous Membranes; No Jaundice
Cardiology: Normal Sinus Rhythm
Pulmonary: Clear
GI: Soft
Extremities: Pulses Present; No Edema
Neuro A&O3, speech clear
Review of Systems
Review of Systems
review of systems notable for subjective, otherwise negative
--- NOTE | 2024-04-16 11:30 | VATNOTE ---
During routine assessment patient's port was found deaccessed with only a biopatch taped to his skin. When asked, the pt informed this RN that he took out the needle because he thought he didn't need it any more. PCN notified, states pt also
deaccessed his own port yesterday. For the patient's safety it was decided that we should not reaccess the patient's port and place a PIV instead. Pt's port accessed to flush with heparin and then deaccessed. Pt's family aware and in agreement.
--- NOTE | 2024-04-16 12:09 | CM ---
Patient seen at bedside with present and son. Patient states he is having surgery darrion and that he understands that he is to remain in the hospital until then. Patient and reviewed options with CM regarding post surgery. Family aware
PT/OT assessment will be necessary to clarify discharge planning needs.
Plan; home with VN vs SNF pending functional outcome/physician assessment.
--- NOTE | 2024-04-16 14:27 | W.PN.CARDCBS ---
Addendum entered and electronically signed by Chris Rabago MD 04/16/24 17:06:
I saw and examined the patient.
The [employer] Member's note was reviewed and I agree with the note.
Comment: Briefly, 79-year-old man past medical history of severe aortic stenosis and heart failure with reduced ejection fraction most recently EF 30% who presents with a pathologic right humeral fracture and is planned for surgery tentatively on
04/21/2024 and cardiology is asked to comment, this is not a high risk procedure
Patient would be high risk for any surgical procedure given his severe aortic stenosis and anesthesia should be aware of his significant valve disease
Lasix and LITZY inhibitor on hold for acute kidney injury
Would consider resuming when blood pressure normalizes
For now continues on beta-lyssa
History of atrial fibrillation, but maintaining sinus rhythm here
Chronically on amiodarone, would continue
Also maintained on Eliquis for cardioembolic prophylaxis, okay to hold for 2 to 3 days prior to the OR and resume when safe from a surgical standpoint
Original Note:
Today's Communication / Plan
-
optimize preop for surgery 04/21. high CV risk, however not prohibitive
continue coreg, amio
continue eliquis, will need to be held preop 48-72 hours pending renal function
holding lasix/lisinopril. follow volume status
Impression / Plan
-
Assessment: 79-year-old male PMH of HFrEF, severe , paroxysmal A-fib, HCC now with bone metastasis who presented to ED with weakness and pathologic fracture of right humerus.
Impression:
Presentation with weakness
Pathologic right humeral fracture, plan for surgical repair 04/21/2024
Hepatocellular carcinoma with osseous metastasis, on checkpoint inhibitors (Nivolumab/Ipilimumab)
Acute on chronic renal insufficiency
Severe
Chronic heart failure with reduced EF
Nonischemic cardiomyopathy, EF 30%
CAD with 60% stenosis of small second diagonal branch, medically managed
Paroxysmal atrial fibrillation
Chronic amiodarone therapy
Chronic Eliquis therapy
Hypertension
Hyperlipidemia
Elevated LFTs
Obstructive sleep apnea
Thyroid nodules
BPH
Former smoker
ECHO 12/04/2023: EF 40%, moderate MR, severe with peak/mean gradients 74/50 mmHg, TORIN 0.9 cm�, PAP 30 to 35 mmHg
ECHO 04/16/24: EF 30%, LV globally hypokinetic, dilated RV, severely dilated LA and dilated RA, at least moderate MR, severe with peak/mean gradient 70/41 mmHg, mild AI, mild TR, PAP 35 to 40 mmHg
Plan:
-Patient presented with weakness in the setting of recent pathologic right humerus fracture in setting of metastatic hepatocellular carcinoma on treatment with checkpoint inhibitors
-pain mgmt per primary service/orthopedics
-He is planned for surgical repair 04/21/2024
-Reviewed echo with patient and family at bedside, EF 30% with known severe
-He is at elevated cardiovascular surgical risk given severe and comorbidities, however given necessity of surgery, risk is not prohibitive
-Will attempt to medically optimize patient prior to procedure.
-Given severe would avoid hypotension. OP lisinopril and lasix on hold at present (was on 20mg po MWF as OP) given acute on chronic renal insufficiency. Cr 2.0 on 04/16
-his TAVR work up has been on hold awaiting response to treatment/prognosis for metastatic HCC
-in SR with occasional PVCs/triplets. continue coreg, amiodarone
-remains on eliquis at present, would hold prior to surgery for 48-72 hours pending renal function
-PT/OT
-d/w patient and family at bedside
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
Subjective
Date of Service: April 16, 2024
no CP, SOB, palpitations
Objective
Labs:
04/16/24 05:38
04/16/24 05:38
Labs
Hgb 8.7 g/dL (13.0-18.0) L 04/16/24 05:38
Hct 26.6 % (39.0-52.0) L 04/16/24 05:38
Plt Count 236 10^3/uL (130-400) 04/16/24 05:38
PT 22.9 Sec (11.4-14.6) H 04/13/24 10:54
INR 2.04 04/13/24 10:54
Sodium 133 mmol/L (135-145) L 04/16/24 05:38
Potassium 4.4 mmol/L (3.5-5.1) 04/16/24 05:38
BUN 59 mg/dl (9-20) H 04/16/24 05:38
Creatinine 2.0 mg/dL (0.7-1.3) H 04/16/24 05:38
Glucose 94 mg/dl (70-99) 04/16/24 05:38
Vital Signs and I&O:
Vital Signs
Temp Pulse Resp BP Pulse Ox
97.7 F 53 16 115/65 96
04/16/24 11:00 04/16/24 11:00 04/16/24 11:00 04/16/24 11:00 04/16/24 11:00
Vital Signs
Temp Pulse Resp BP Pulse Ox
97.7 F 53 16 115/65 96
04/16/24 11:00 04/16/24 11:00 04/16/24 11:00 04/16/24 11:00 04/16/24 11:00
Intake & Output
04/14/24 04/15/24 04/16/24 04/17/24
07:59 07:59 07:59 07:59
Intake Total 480 / 480 1190 / 1190 960 / 960
Output Total 1175 / 1175 500 / 500 1100 / 1100
Balance -695 / -695 690 / 690 -140 / -140
Physical Exam
Physical Exam
GEN: No distress, awake, alert, oriented x3. sitting in chair. RUE in sling
HEENT: supple, anicteric, mmm, eomi
LUNGS: CTA B/L, no wheezes/rales
CV: Reg, S1/S2, 2/6 syst LSB
ABD: soft, BS+, NT/ND
EXT: No cyanosis, clubbing. trace edema of LLE
NEURO: Gross non-focal
SKIN: Warm, pink, dry. No rash
[2024-04-16] MEDS: FIBERCON 625 MG PO (17:06)
[2024-04-16] MEDS: TYLENOL 1000 MG PO (21:31)
[2024-04-16] MEDS: REMERON 7.5 MG PO (23:15)
[2024-04-17] MEDS: ULTRAM 50 MG PO (04:36)
[2024-04-17 06:00] VITALS: BMI 23.8
[2024-04-17 06:27] LABS: % Basophils 0.2 % (0-2); % Eosinophils 1.1 % (0-6); % Immature Granulocytes 0.4 % (0-0.5); % Lymphocytes 7.5 % (20.5-51.1); % Monocytes 8.2 % (1.7-9.3); % Neutrophils 82.6 % (42.2-75.2); Absolute Eosinophils 0.1 10^3/uL (0-0.7); Absolute Lymphocytes 0.6 10^3/uL (1.2-3.4); Absolute Monocytes 0.7 10^3/uL (0.1-0.6); Absolute Neutrophils 6.9 10^3/uL (1.4-6.5); Hematocrit 24.5 % (39.0-52.0); Hemoglobin 8.4 g/dL (13.0-18.0); Mean Corp Hgb Conc. 34.3 g/dL (33.0-37.0); Mean Corpuscular Hgb 28.5 pg (27.0-31.0); Mean Corpuscular Volume 83.1 fL (80.0-94.0); Mean Platelet Volume 10.4 fL (7.4-10.4); Nucleated Red Blood Cells % 0 % (-); Platelet Count 219 10^3/uL (130-400); Red Blood Cell Count 2.95 10^6/uL (4.70-6.10); Red Cell Dist. Width 16.7 % (11.5-14.5); White Blood Cell Count 8.4 10^3/uL (4.8-10.8)
[2024-04-17 06:39] LABS: ALT (SGPT) 165 U/L (0-50); AST (SGOT) 133 U/L (17-59); Albumin 2.8 g/dl (3.5-5.0); Alkaline Phosphatase 769 U/L (38-126); Blood Urea Nitrogen 54 mg/dl (9-20); Calcium 7.8 mg/dl (8.4-10.2); Carbon Dioxide 13 mmol/L (22-30); Chloride 106 mmol/L (98-107); Estimated Creatinine Clearance 41 ml/min; Glucose 101 mg/dl (70-99); Potassium 4.5 mmol/L (3.5-5.1); Sodium 134 mmol/L (135-145); Total Bilirubin 2.1 mg/dl (0.2-1.3); Total Protein 5.6 g/dl (6.3-8.2); eGFR 41.01
[2024-04-17 07:30] VITALS: BP 86/64
--- NOTE | 2024-04-17 07:44 | W.PN.UPDATE ---
Update Note
Progress Note Update
79M pathologic comminuted right proximal humerus fx
--tentative for OR 04/[address] Henson pending eliquis washout and medical clearance/optimization.
--- NOTE | 2024-04-17 08:03 | W.PN.HOSP.TC ---
Today's Communication/Plan
-
.
Assessment / Plan
Assessment / Plan
Assessment
Hepatocellular carcinoma checkpoint inhibitors
Acute kidney injury
Right shoulder in a sling
Right femur fracture nontraumatic likely secondary to metastasis vs Pathological
Acidosis
Conditions present prior to admission
Paroxysmal atrial fibrillation
Anemia of chronic disease
Chronic HFrEF
Severity stenosis
Hypercholesterolemia
hypertension
BPH
Anxiety/depression
Former smoker
Plan
#Hepatocellular carcinoma on checkpoint inhibitors
-On Nivolumab/Ipilimumab
-Oncology following
-Elevated LFTs
-Hold statin
#Acute kidney injury
-Creatinine 1.8>>2.1>>2.0>>1.7 today (with baseline 1.0-1.2)
-Renal status Improving with diuretics on hold, off IV fluids
-Abdominal x-ray 04/14/2024 with no evidence of mechanical intestinal obstruction
-Failed voiding trial after removal of Angel catheter 04/15. Multiple straight catheterization due to retention yesterday. Was still retaining urine. New Angel catheter placed yesterday afternoon
-Follow-up with urologist as outpatient
# Severe aortic stenosis
# Chronic heart failure with reduced ejection fraction
-Cardiology input appreciated. Monitor Volume status off IV fluids.
-Continue Holding Lasix, Outpatient MWF
-Continue Coreg with Holding Parameters.
-Chest x-ray 04/14/2024 cardiomegaly with borderline pulmonary edema
-Repeat limited 2D echocardiogram today to reassess LV systolic function, MR and AAS gradients
#Right femoral fracture-nontraumatic
-Continue with immobilization of right upper extremity with sling.
-Nonweightbearing to right upper extremity.
-Continue pain control. Aggressive bowel regimen
-CT upper extremity acute comminuted pathologic fracture through a 6.5 cm lytic osseous metastasis in the proximal right humerus. The fracture is associated with 5 mm impaction and 5 mm anterolateral displacement of the major distal fracture fragment
-Ortho following. nonemergent reverse total shoulder replacement planned, anticipated surgical date 04/21/24
-Cardiology consulted for preoperative cardiac risk assessment.- He is higher CV risk. Optimize his clinical status prior to surgery
#Hyponatremia
-Euvolemic on exam.
-Sodium level improving
-Monitor NA off IVF
#Acidosis
-Worsening acidosis
-Check ABGs today
-Lactic acid Checked today 1.0
-Bicarb tablets
-Trend level.
# Deconditioning-PT OT
# Paroxysmal atrial fibrillation-continue amiodarone, Coreg, Eliquis(Hold 48hrs before surgery)
# Anemia likely secondary to malignancy
# Chronic heart failure with reduced ejection fraction-Hold Lasix
# Hypertension-continue Coreg, Hold lisinopril
# Hyperlipidemia-continue Zetia. Hold statin with elevated LFTs
# Enlarged prostate-continue Flomax and finasteride
# Anxiety and depression-continue fluoxetine and Remeron
# Severe aortic stenosis
# Ex-smoker
DVT prophylaxis-Eliquis
CODE STATUS- DNR
Anticipated Discharge: > 48 hours
Subjective/Interval History
-
Patient seen and examined today at bedside. Patient without acute complaints. He denies chest pain, he denies shortness of breath. He reports he passed gas, had a bowel movement yesterday
Objective Data
-
Labs:
Laboratory Results
04/17/24 04/17/24
05:23 07:50
WBC 8.4
Hgb 8.4 L
Hct 24.5 L
Plt Count 219
HCO3 Pending
Sodium 134 L
Potassium 4.5
Chloride 106
Carbon Dioxide 13 L*
BUN 54 H
Creatinine 1.7 H
Glucose 101 H
Calcium 7.8 L
Total Bilirubin 2.1 H
AST 133 H
ALT 165 H
Alkaline Phosphatase 769 H
Vital Signs:
Vital Signs
Temp Pulse Resp BP Pulse Ox
97.8 F 85 16 86/64 98
04/17/24 07:30 04/17/24 07:30 04/17/24 07:30 04/17/24 07:30 04/17/24 07:30
I&O
04/16/24 04/17/24 04/18/24
06:59 06:59 06:59
Intake Total 960 / 960 1080 / 1080
Output Total 1100 / 1100 750 / 750
Balance -140 / -140 330 / 330
Review of Systems
-
All other systems: Reviewed and negative (Except as documented)
Physical Exam
-
General: No Apparent Distress and Other (Right upper extremity in a sling)
Respiratory: Clear to Auscultation
Cardiac: S1/S2
GI: Soft, Nontender, Nondistended and Normal Bowel Sounds
Neuro: Awake and Alert
[2024-04-17] MEDS: VITAMIN C 500 MG PO (08:40)
[2024-04-17] MEDS: VITAMIN B-12 500 MCG PO (08:40)
[2024-04-17] MEDS: FLOMAX 0.4 MG PO (08:40)
[2024-04-17] MEDS: COREG PO ×2 (08:40→21:43)
[2024-04-17] MEDS: SODIUM BICARBONATE 650 MG PO (08:41)
[2024-04-17] MEDS: PROSCAR 5 MG PO (08:41)
[2024-04-17] MEDS: ZETIA 10 MG PO (08:41)
[2024-04-17] MEDS: ELIQUIS 5 MG PO ×2 (08:41→21:44)
[2024-04-17] MEDS: LIDOCAINE 4% PATCH 1 PATCH TOPICAL (08:44)
[2024-04-17] MEDS: PACERONE 200 MG PO (08:45)
--- NOTE | 2024-04-17 10:26 | CM ---
Chart reviewed: patient has a comminuted right proximal humerus fracture; and is tentatively scheduled for surgery on 04/21
CM met with patient at bedside to discuss discharge plan; explained that Shelter Facility was recommended when stable for discharge
List of SNFs given to patient to review and identify preferences. Patient will discuss with
CM will follow up for site preferences and submit referrals; AUTH needed
Plan: Discharge to SNF when medically stable pending SNF bed availability and AUTH approved
--- NOTE | 2024-04-17 10:51 | W.PN.ONC2 ---
Today's Communication / Plan
-
PT/OT
OR with ortho planned
PS will need to improve to resume antineoplastic therapy - will hold antineoplastic therapy if while at SNF/Rehab to optimize PS prior to resumption of treatment
Would benefit from palliative care involvement for advanced care planning, pain management, and GOC upon discharge
Impression
Impression
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
Pathologic fracture of surgical neck and proximal metaphysis of right humerus
Severe aortic stenosis
HFrEF
hypotension -normal TSH, ATCH 04/08
FILOMENA
elevated Tbili, transaminitis
PAF on DOAC
LLE weakness, MRI L spine no cord compression
Plan
Plan
metastatic HCC on Nivolumab/Ipilimumab ([facility]) s/p C1 04/09 so FILOMENA and hypotension unlikely related to immunotherapy
known osseous mets in L spine, left ischium/pubic ramus on PET 03/18 -MRI L-Spine no cord compression
right humoral head fracture -ortho recommending right shoulder replacement
nonemergent reverse total shoulder replacement planned
Elevated LFTs
Subjective/Objective
Chief Complaint
right shoulder pain -using tylenol and tramadol.
left leg weakness
denies back pain
Subjective
working with physical therapy -2 assist to stand
Vital Signs:
Vital Signs
Temp Pulse Resp BP Pulse Ox
97.8 F 85 16 82/60 98
04/17/24 07:30 04/17/24 08:45 04/17/24 07:30 04/17/24 08:45 04/17/24 07:30
Lab Results:
Laboratory Data
WBC 8.4 10^3/uL (4.8-10.8) 04/17/24 05:23
Hgb 8.4 g/dL (13.0-18.0) L 04/17/24 05:23
Plt Count 219 10^3/uL (130-400) 04/17/24 05:23
PT 22.9 Sec (11.4-14.6) H 04/13/24 10:54
INR 2.04 04/13/24 10:54
eGFR 41.01 04/17/24 05:23
Physical Exam
right arm sling
HEENT: Moist Mucous Membranes; No Jaundice
Cardiology: Normal Sinus Rhythm
Pulmonary: Clear
GI: Soft
Extremities: Pulses Present; No Edema
Neuro A&O3, speech clear
Review of Systems
Review of Systems
ROS notable for subjective, otherwise negative
[2024-04-17 12:10] LABS: B.E. -6.7 mmol/L; O2 Saturation % 97.3 % (94-98); PCO2 22 mmHg (35-48); PO2 68 mmHg (83-108); pH 7.46 (7.35-7.45)
[2024-04-17 12:13] LABS: HCO3 15.6 mmol/L (21-28)
--- NOTE | 2024-04-17 13:18 | W.PN.CARDCBS ---
Addendum entered and electronically signed by Chris Rabago MD 04/17/24 16:40:
I saw and examined the patient.
The Retail Shift Manager's note was reviewed and I agree with the note.
Comment: Briefly, 79-year-old man with complex past medical history including severe aortic stenosis, heart failure with reduced ejection fraction, atrial fibrillation as well as hepatocellular carcinoma who is presenting with a pathologic fracture
of the right humerus and we are asked to help with management of his cardiovascular disease in the perioperative period
No active cardiac complaints today
Appears euvolemic on exam
Renal function is trending back towards baseline, home Lasix and lisinopril are currently on hold
Continues on amiodarone for history of atrial fibrillation
Okay to hold Eliquis 2 days prior to the OR and resume when safe from a surgical standpoint
Original Note:
Today's Communication / Plan
-
Plan for surgical repair of R humerus fracture next week.
Continue Eliquis for now, hold 48-72 hours prior to OR
Impression / Plan
-
PCP: Dr. Vyas
Cardiology: Dr. Jessica Richards
Impression:
Presentation with weakness
Pathologic right humeral fracture, plan for surgical repair 04/21/2024
Hepatocellular carcinoma with osseous metastasis, on checkpoint inhibitors (Nivolumab/Ipilimumab)
Acute on chronic renal insufficiency
Severe
Chronic heart failure with reduced EF
Nonischemic cardiomyopathy, EF 30%
CAD with 60% stenosis of small second diagonal branch, medically managed
Paroxysmal atrial fibrillation
Chronic amiodarone therapy
Chronic Eliquis therapy
Hypertension
Hyperlipidemia
Elevated LFTs
Obstructive sleep apnea
Thyroid nodules
BPH
Former smoker
ECHO 12/04/2023: EF 40%, moderate MR, severe with peak/mean gradients 74/50 mmHg, TORIN 0.9 cm�, PAP 30 to 35 mmHg
ECHO 04/16/24: EF 30%, LV globally hypokinetic, dilated RV, severely dilated LA and dilated RA, at least moderate MR, severe with peak/mean gradient 70/41 mmHg, mild AI, mild TR, PAP 35 to 40 mmHg
Plan:
-Patient presented with weakness. He had recent pathologic right humerus fracture in setting of metastatic hepatocellular carcinoma on treatment with checkpoint inhibitors
-Plan is for surgical repair Saturday 04/21. Continue pain management per ortho/primary service.
-Echo repeated 04/16/24 w/ EF 30% and severe . He is at elevated cardiovascular surgical risk given severe and comorbidities, however given necessity of surgery, risk is not prohibitive
-Lasix and lisinopril remain on hold due to hypotension and FILOMENA. Creat improving, down to 1.7 04/17.
-Severe has been a known diagnosis, however TAVR work up has been on hold awaiting response to treatment/prognosis for metastatic HCC
-Remains in SR on review of telemetry. Continue coreg and amiodarone. HR stable.
-Continue Eliquis 5mg BID for now. Will hold prior to surgery for 48-72 hours pending renal function.
Progress Note - Lead Inspector
Subjective
Date of Service: April 17, 2024
No complaints. Pain adequately controlled.
Objective
Labs:
04/17/24 05:23
04/17/24 05:23
Labs
Hgb 8.4 g/dL (13.0-18.0) L 04/17/24 05:23
Hct 24.5 % (39.0-52.0) L 04/17/24 05:23
Plt Count 219 10^3/uL (130-400) 04/17/24 05:23
PT 22.9 Sec (11.4-14.6) H 04/13/24 10:54
INR 2.04 04/13/24 10:54
Sodium 134 mmol/L (135-145) L 04/17/24 05:23
Potassium 4.5 mmol/L (3.5-5.1) 04/17/24 05:23
BUN 54 mg/dl (9-20) H 04/17/24 05:23
Creatinine 1.7 mg/dL (0.7-1.3) H 04/17/24 05:23
Glucose 101 mg/dl (70-99) H 04/17/24 05:23
Vital Signs and I&O:
Vital Signs
Temp Pulse Resp BP Pulse Ox
97.8 F 85 16 82/60 98
04/17/24 07:30 04/17/24 08:45 04/17/24 07:30 04/17/24 08:45 04/17/24 07:30
Vital Signs
Temp Pulse Resp BP Pulse Ox
97.8 F 85 16 82/60 98
04/17/24 07:30 04/17/24 08:45 04/17/24 07:30 04/17/24 08:45 04/17/24 07:30
Intake & Output
04/15/24 04/16/24 04/17/24 04/18/24
06:59 06:59 06:59 06:59
Intake Total 1670 / 1670 960 / 960 1080 / 1080
Output Total 1675 / 1675 1100 / 1100 750 / 750
Balance -5 / -5 -140 / -140 330 / 330
Physical Exam
Physical Exam
GEN: No distress, awake, alert, oriented x3. RUE in sling
HEENT: supple, anicteric, mmm, eomi
LUNGS: CTA B/L, no wheezes/rales
CV: Reg, S1/S2, 2/6 syst LSB
EXT: No cyanosis, clubbing. trace edema of LLE
NEURO: Gross non-focal
SKIN: Warm, pink, dry. No rash
[2024-04-17 15:34] VITALS: BP 96/63; PULSE 90
[2024-04-17 15:38] VITALS: BP 96/63; PULSE 90; O2SAT 100
[2024-04-17 16:00] VITALS: BP 87/60
[2024-04-17] MEDS: FIBERCON 625 MG PO (16:53)
--- NOTE | 2024-04-17 18:35 | PTCARENOTE ---
pt bp manually in the 80s/50-60s. resident Coral notified this AM and this evening via tt. no additional plan of care initiated. pt remains asymptomatic.
[2024-04-17] MEDS: TYLENOL 1000 MG PO (21:44)
[2024-04-17] MEDS: REMERON 7.5 MG PO (21:45)
[2024-04-17 23:00] VITALS: BP 85/55
[2024-04-18 05:38] LABS: Hematocrit 25.1 % (39.0-52.0); Hemoglobin 8.4 g/dL (13.0-18.0); Mean Corp Hgb Conc. 33.5 g/dL (33.0-37.0); Mean Corpuscular Hgb 27.4 pg (27.0-31.0); Mean Corpuscular Volume 81.8 fL (80.0-94.0); Mean Platelet Volume 10.2 fL (7.4-10.4); Platelet Count 251 10^3/uL (130-400); Red Blood Cell Count 3.07 10^6/uL (4.70-6.10); Red Cell Dist. Width 16.9 % (11.5-14.5); White Blood Cell Count 9.2 10^3/uL (4.8-10.8)
[2024-04-18 06:00] VITALS: BMI 23.8
[2024-04-18 06:02] LABS: Blood Urea Nitrogen 60 mg/dl (9-20); Calcium 7.8 mg/dl (8.4-10.2); Carbon Dioxide 13 mmol/L (22-30); Chloride 107 mmol/L (98-107); Estimated Creatinine Clearance 44 ml/min; Glucose 90 mg/dl (70-99); Sodium 134 mmol/L (135-145)
[2024-04-18 08:00] VITALS: BP 82/59
[2024-04-18] MEDS: VITAMIN B-12 500 MCG PO (08:09)
[2024-04-18] MEDS: ELIQUIS 5 MG PO ×2 (08:09→20:41)
[2024-04-18] MEDS: ZETIA 10 MG PO (08:09)
[2024-04-18] MEDS: PACERONE 200 MG PO (08:09)
[2024-04-18] MEDS: FLOMAX 0.4 MG PO (08:09)
[2024-04-18] MEDS: PROSCAR 5 MG PO (08:09)
[2024-04-18] MEDS: VITAMIN C 500 MG PO (08:09)
[2024-04-18] MEDS: LIDOCAINE 4% PATCH 1 PATCH TOPICAL (08:10)
[2024-04-18] MEDS: COREG PO ×2 (08:10→20:38)
[2024-04-18] MEDS: SENOKOT-S 1 TABLET PO (08:37)
--- NOTE | 2024-04-18 11:55 | W.PN.HOSP.TC ---
Today's Communication/Plan
-
Plan to hold Eliquis after this evening dose
OR on Saturday for surgical repair of humerus fracture
Trend daily BMP and CBC
Assessment / Plan
Assessment / Plan
#Nontraumatic right humerus fracture
-CT upper extremity acute comminuted pathologic fracture through a 6.5 cm lytic osseous metastasis in the proximal right humerus.
-Planning for reverse total shoulder replacement with orthopedics on 04/21/2024
-He is on Eliquis for atrial fibrillation, plan to hold starting tomorrow morning
-Continue with immobilization of right upper extremity with sling.
-Nonweightbearing to right upper extremity.
-Continue pain control. Aggressive bowel regimen
-Cardiology risk assessment without contraindication to proceed with surgery
#Post renal acute kidney injury on CKD
-Post renal with suspected prerenal component though volume status difficult to ascertain
-Creatinine baseline reportedly 1-1.2, creatinine peaked at 2.1 and is down trended to 1.7
-Currently holding diuretics, LITZY inhibitor; also not providing IV fluids at this time due to tenuous fluid status
-Blood pressure has been chronically soft though renal function improving slowly
-Status post Angel catheter, will maintain due to failed TOV; outpatient urology follow-up
-Renal status Improving with diuretics on hold, off IV fluids
-Trend BMP daily
#Metastatic hepatocellular carcinoma
-Metastasis to bone, likely causing pathologic humerus fracture
-Currently on checkpoint inhibitor therapy with nivolumab/ipilimumab
-Has chronically elevated liver function tests that have been stable here
-Oncology following
#Severe aortic stenosis
#Chronic heart failure with reduced ejection fraction
-Home medications include carvedilol, Lasix, lisinopril
-Lisinopril and Lasix were held due to FILOMENA
-Appears euvolemic without Lasix
-Trend BMP and monitor volume status
-Holding Coreg as needed due to low blood pressure
#Paroxysmal atrial fibrillation
-Home medications include carvedilol and Eliquis
-Nonvalvular, no known history of electrophysiologic interventions
-Planning to hold Eliquis in preparation of the OR on Saturday
-Currently well-controlled
#Anemia of chronic disease
-Hemoglobin baseline near 8.5, has been at baseline while here
-Secondary to multiple chronic ailments including hepatic cellular carcinoma
-May also be a component of age and reduced bone marrow function
#Respiratory alkalosis
-BMP showing chronically low bicarbonate here, most recently stable at 13
-ABG yesterday showed neutral pH, low pCO2 consistent with respiratory alkalosis
-Suspect this is related to episodes of pain and possible hyperventilation
-Continue to trend BMP, consider repeat ABG
# Hyperlipidemia-continue Zetia. Hold statin with elevated LFTs
# Enlarged prostate-continue Flomax and finasteride
# Anxiety and depression-continue fluoxetine and Remeron
# Ex-smoker
DVT prophylaxis: Eliquis
Diet: 2 g sodium restricted
CODE STATUS: DNR
Anticipated Discharge: > 48 hours
Subjective/Interval History
-
Date of Service: April 18, 2024
Seen and examined at bedside. No acute events overnight. AFVSS this morning, blood pressure chronically soft
He states he feels well, right arm pain is minimal at the time.
Denies any other acute complaints including chest pain, dyspnea, fevers or chills, GI issues, urinary issues, bleeding or bruising, paresthesias or weakness
Objective Data
-
Labs:
Laboratory Results
04/18/24
05:20
WBC 9.2
Hgb 8.4 L
Hct 25.1 L
Plt Count 251
Sodium 134 L
Potassium 5.0
Chloride 107
Carbon Dioxide 13 L*
BUN 60 H
Creatinine 1.6 H
Glucose 90
Calcium 7.8 L
Vital Signs:
Vital Signs
Temp Pulse Resp BP Pulse Ox
97.6 F 84 16 82/59 99
04/18/24 08:00 04/18/24 08:10 04/18/24 08:00 04/18/24 08:10 04/18/24 08:00
I&O
04/17/24 04/18/24 04/19/24
06:59 06:59 06:59
Intake Total 1080 / 1080 650 / 650 480 / 480
Output Total 750 / 750 450 / 450 550 / 550
Balance 330 / 330 200 / 200 -70 / -70
Review of Systems
-
History Source: Patient
All other systems: Reviewed and negative
Physical Exam
-
General: No Apparent Distress, Comfortable and Appears Chronically Ill
HEENT: Normocephalic, Atraumatic and Moist Mucous Membranes
Respiratory: Clear to Auscultation and Non Labored Respirations; Negative Wheezes, Rales or Rhonchi
Cardiac: Regular Rhythm, S1/S2 and Murmur ([place] quality at LSB, delayed upstroke); Negative Rub or Gallop
GI: Soft, Nontender, Nondistended and Normal Bowel Sounds
Musculoskeletal: No Clubbing, No Cyanosis and No Edema
Skin: Warm and Dry; Negative Rash or Jaundice
Neuro: AO x 3, Nonfocal/Grossly Intact and Central Nerve's Intact
Psych: Calm
Data Reviewed
-
Labs: Labs Reviewed by me and Discussed with Patient
[2024-04-18 16:00] VITALS: BP 88/65
[2024-04-18] MEDS: FIBERCON 625 MG PO (17:00)
[2024-04-18] MEDS: TYLENOL 1000 MG PO (20:41)
[2024-04-18] MEDS: REMERON 7.5 MG PO (20:41)
[2024-04-18 23:00] VITALS: BP 91/58
[2024-04-19 05:37] LABS: % Basophils 0.4 % (0-2); % Eosinophils 2.1 % (0-6); % Immature Granulocytes 0.7 % (0-0.5); % Lymphocytes 7.7 % (20.5-51.1); % Monocytes 8.6 % (1.7-9.3); % Neutrophils 80.5 % (42.2-75.2); Absolute Eosinophils 0.2 10^3/uL (0-0.7); Absolute Immature Granulocytes 0.1 10^3/uL (0-0.05); Absolute Lymphocytes 0.8 10^3/uL (1.2-3.4); Absolute Monocytes 0.9 10^3/uL (0.1-0.6); Absolute Neutrophils 8.1 10^3/uL (1.4-6.5); Hematocrit 26.4 % (39.0-52.0); Hemoglobin 8.9 g/dL (13.0-18.0); Mean Corp Hgb Conc. 33.7 g/dL (33.0-37.0); Mean Corpuscular Hgb 28.4 pg (27.0-31.0); Mean Corpuscular Volume 84.3 fL (80.0-94.0); Nucleated Red Blood Cells % 0 % (-); Platelet Count 257 10^3/uL (130-400); Red Blood Cell Count 3.13 10^6/uL (4.70-6.10); Red Cell Dist. Width 16.9 % (11.5-14.5)
[2024-04-19 05:59] LABS: Blood Urea Nitrogen 56 mg/dl (9-20); Calcium 7.9 mg/dl (8.4-10.2); Carbon Dioxide 17 mmol/L (22-30); Chloride 107 mmol/L (98-107); Estimated Creatinine Clearance 39 ml/min; Glucose 95 mg/dl (70-99); Potassium 4.9 mmol/L (3.5-5.1); Sodium 137 mmol/L (135-145); eGFR 38.29
[2024-04-19 06:00] VITALS: BMI 23.9
[2024-04-19] MEDS: PACERONE 200 MG PO (07:58)
[2024-04-19] MEDS: FLOMAX 0.4 MG PO (07:58)
[2024-04-19] MEDS: LIDOCAINE 4% PATCH 1 PATCH TOPICAL (07:58)
[2024-04-19] MEDS: ZETIA 10 MG PO (07:58)
[2024-04-19] MEDS: VITAMIN C 500 MG PO (07:58)
[2024-04-19] MEDS: PROSCAR 5 MG PO (07:58)
[2024-04-19] MEDS: VITAMIN B-12 500 MCG PO (08:00)
[2024-04-19] MEDS: COREG PO ×2 (08:02→21:10)
[2024-04-19 08:27] VITALS: BP 93/68
--- NOTE | 2024-04-19 08:33 | W.PN.UPDATE ---
Update Note
Progress Note Update
Patient with right pathological proximal humerus fracture.
-Plan to proceed to OR on 04/21/[address] Henson for reverse TSA.
-Surgery explained in detail, along with associated risks, benefits, and recovery process. Surgical consent signed and placed in patient's chart.
-IV abx and irrigation regional service manager to OR.
-Cardiology and Hospitalists have medically optimized patient and he is cleared to proceed to OR as planned.
-Eliquis stopped after evening dose on 04/18.
-Continue sling and NWB to RUE.
-All questions answered and patient was in agreement with treatment plan.
--- NOTE | 2024-04-19 13:28 | W.PN.HOSP.TC ---
Today's Communication/Plan
-
Hold Eliquis, start SCDs
Trend daily BMP for guidance of volume status
Plan for orthopedic procedure on Saturday
Hold Lasix/lisinopril/IVF
Assessment / Plan
Assessment / Plan
#Nontraumatic right humerus fracture
-CT upper extremity acute comminuted pathologic fracture through a 6.5 cm lytic osseous metastasis in the proximal right humerus.
-Planning for reverse total shoulder replacement with orthopedics on 04/21/2024
-Continue with immobilization of right upper extremity with sling.
-Nonweightbearing to right upper extremity.
-Continue pain control. Aggressive bowel regimen
-Cardiology risk assessment without contraindication to proceed with surgery
-Eliquis held in preparation of procedure
#Post renal acute kidney injury on CKD
-Post renal with suspected prerenal component though volume status difficult to ascertain
-Creatinine baseline reportedly 1-1.2, creatinine peaked at 2.1 and is down trended to 1.7
-Currently holding diuretics, LITZY inhibitor; also not providing IV fluids at this time due to tenuous fluid status
-Blood pressure has been chronically soft though renal function improving slowly
-Status post Angel catheter, will maintain due to failed TOV; outpatient urology follow-up
-Renal status stable with diuretics on hold, off IV fluids
-Trend BMP daily, creatinine has been stable near 1.6-1.8
#Metastatic hepatocellular carcinoma
-Metastasis to bone, likely causing pathologic humerus fracture
-Currently on checkpoint inhibitor therapy with nivolumab/ipilimumab
-Has chronically elevated liver function tests that have been stable here
-Oncology following
#Severe aortic stenosis
#Chronic heart failure with reduced ejection fraction
-Home medications include carvedilol, Lasix, lisinopril
-Lisinopril and Lasix were held due to FILOMENA
-Appears euvolemic without Lasix
-Trend BMP and monitor volume status
-Holding Coreg as needed due to low blood pressure
#Paroxysmal atrial fibrillation
-Home medications include carvedilol and Eliquis
-Nonvalvular, no known history of electrophysiologic interventions
-Planning to hold Eliquis in preparation of the OR on Saturday
-Currently well-controlled
#Anemia of chronic disease
-Hemoglobin baseline near 8.5, has been at baseline while here
-Secondary to multiple chronic ailments including hepatic cellular carcinoma
-May also be a component of age and reduced bone marrow function
#Respiratory alkalosis
-BMP showing chronically low bicarbonate here, most recently stable at 13
-ABG yesterday showed neutral pH, low pCO2 consistent with respiratory alkalosis
-Suspect this is related to episodes of pain and possible hyperventilation
-Continue to trend BMP, consider repeat ABG
-Now improving
# Hyperlipidemia-continue Zetia. Hold statin with elevated LFTs
# Enlarged prostate-continue Flomax and finasteride
# Anxiety and depression-continue fluoxetine and Remeron
# Ex-smoker
DVT prophylaxis: Start SCDs
Diet: 2 g sodium restricted
CODE STATUS: DNR
Anticipated Discharge: > 48 hours
Subjective/Interval History
-
Date of Service: April 19, 2024
Seen and examined at the bedside with in the room. No acute events overnight. AFVSS this morning.
Labs are stable with renal function similar to previous days. His respiratory alkalosis is seem to improve, bicarbonate up to 17 now.
Denies any acute complaints including chest pain, dyspnea, fevers or chills, GI upset, urinary issues, bleeding or bruising, paresthesias or weakness. Right upper extremity pain is well-managed
Objective Data
-
Labs:
Laboratory Results
04/19/24
05:21
WBC 10.0
Hgb 8.9 L
Hct 26.4 L
Plt Count 257
Sodium 137
Potassium 4.9
Chloride 107
Carbon Dioxide 17 L
BUN 56 H
Creatinine 1.8 H
Glucose 95
Calcium 7.9 L
Vital Signs:
Vital Signs
Temp Pulse Resp BP Pulse Ox
97.9 F 90 16 93/68 96
04/19/24 08:27 04/19/24 08:27 04/19/24 08:27 04/19/24 08:27 04/19/24 08:27
I&O
04/18/24 04/19/24 04/20/24
06:59 06:59 06:59
Intake Total 650 / 650 1560 / 1560
Output Total 450 / 450 1825 / 1825
Balance 200 / 200 -265 / -265
Review of Systems
-
History Source: Patient and Family
All other systems: Reviewed and negative
Physical Exam
-
General: No Apparent Distress, Comfortable and Appears Chronically Ill
HEENT: Normocephalic, Atraumatic and Moist Mucous Membranes
Respiratory: Clear to Auscultation and Non Labored Respirations; Negative Accessory Resp Muscle Use
Cardiac: Regular Rhythm, S1/S2, Murmur (3/6, honking quality at LSB) and Other (Delayed carotid upstroke); Negative Rub, JVD or Gallop
GI: Soft, Nontender, Nondistended and Normal Bowel Sounds
Musculoskeletal: No Clubbing, No Cyanosis and No Edema
Skin: Warm and Dry; Negative Rash or Jaundice
Neuro: AO x 3, Nonfocal/Grossly Intact and Central Nerve's Intact
Psych: Calm
Data Reviewed
-
Labs: Labs Reviewed by me, Discussed with Patient and Discussed with Family
[2024-04-19 15:58] VITALS: BP 93/61
[2024-04-19 16:00] VITALS: BP 100/73; PULSE 96
--- NOTE | 2024-04-19 16:28 | CM ---
Met with patient and spouse at bedside; obtained SNF preferences: [facility]
Plan: Plan: Discharge to SNF when medically stable pending SNF bed availability and AUTH approved
[2024-04-19] MEDS: FIBERCON 625 MG PO (17:22)
[2024-04-19] MEDS: TYLENOL 1000 MG PO (21:10)
[2024-04-19] MEDS: REMERON 7.5 MG PO (21:10)
[2024-04-19 23:00] VITALS: BP 95/66
[2024-04-20] VITALS (7 sets, daily range): BP systolic 89–103; BP diastolic 58–67; PULSE 89–95; O2SAT 99; BMI 24.8
[2024-04-20 05:31] LABS: % Basophils 0.3 % (0-2); % Eosinophils 1.6 % (0-6); % Immature Granulocytes 0.7 % (0-0.5); % Lymphocytes 7.3 % (20.5-51.1); % Monocytes 8.6 % (1.7-9.3); % Neutrophils 81.5 % (42.2-75.2); Absolute Eosinophils 0.2 10^3/uL (0-0.7); Absolute Immature Granulocytes 0.1 10^3/uL (0-0.05); Absolute Lymphocytes 0.8 10^3/uL (1.2-3.4); Absolute Monocytes 0.9 10^3/uL (0.1-0.6); Absolute Neutrophils 8.6 10^3/uL (1.4-6.5); Hemoglobin 8.6 g/dL (13.0-18.0); Mean Corp Hgb Conc. 33.1 g/dL (33.0-37.0); Mean Corpuscular Hgb 27.2 pg (27.0-31.0); Mean Corpuscular Volume 82.3 fL (80.0-94.0); Mean Platelet Volume 9.6 fL (7.4-10.4); Nucleated Red Blood Cells % 0 % (-); Platelet Count 275 10^3/uL (130-400); Red Blood Cell Count 3.16 10^6/uL (4.70-6.10); Red Cell Dist. Width 17.1 % (11.5-14.5); White Blood Cell Count 10.5 10^3/uL (4.8-10.8)
[2024-04-20 06:00] LABS: ALT (SGPT) 166 U/L (0-50); AST (SGOT) 115 U/L (17-59); Albumin 2.8 g/dl (3.5-5.0); Alkaline Phosphatase 886 U/L (38-126); Blood Urea Nitrogen 55 mg/dl (9-20); Calcium 7.8 mg/dl (8.4-10.2); Carbon Dioxide 15 mmol/L (22-30); Chloride 107 mmol/L (98-107); Direct Bilirubin 2.3 mg/dl (0.0-0.4); Estimated Creatinine Clearance 41 ml/min; Glucose 91 mg/dl (70-99); Potassium 4.9 mmol/L (3.5-5.1); Sodium 136 mmol/L (135-145); Total Bilirubin 3.3 mg/dl (0.2-1.3); Total Protein 5.9 g/dl (6.3-8.2); eGFR 41.01
--- NOTE | 2024-04-20 07:53 | W.PN.HOSP.TC ---
Addendum entered and electronically signed by Leti Alba MD 04/20/24 18:19:
I saw and evaluated the patient independently. I reviewed the resident�s note and agree with findings and plan as documented by Dr. Moncada.
GENERAL: well developed, well nourished, male in no apparent distress
HEENT: NC/AT--no O2 requirements
HEART: regular rate and rhythm, +S1, +S2, PAULA
LUNGS : clear to auscultation bilaterally
ABDOM: soft, nontender, nondistended, + bowel sounds
EXT: no cyanosis, clubbing, or edema--left shoulder in sling
NEUROLOGIC: grossly intact
: londono catheter in place with clear yellow urine
Nontraumatic right humerus fracture likely due to mets and pathologic fracture (CT upper extremity acute comminuted pathologic fracture through a 6.5 cm lytic osseous metastasis in the proximal right humerus)--Eliquis on hold--apprec ortho--for
reverse shoulder replacement 04/21/24--apprec cards for pre-op clearance
Post renal acute kidney injury on CKD due to retention--creat peaked at 2.1--failed voiding trial--cont londono cath at d/c and follow up with urology in office--holding diuretics--
chronic hypotension--Blood pressure has been chronically soft though renal function improving slowly--adjust meds per cards
Metastatic hepatocellular carcinoma---Metastasis to bone, likely causing pathologic humerus fracture--Currently on checkpoint inhibitor therapy with nivolumab/ipilimumab--apprec onc
Severe aortic stenosis/Chronic heart failure with reduced ejection fraction--lisinopril and lasix on hold--carvedilol holding since BP low
Paroxysmal atrial fibrillation--Home medications include carvedilol and Eliquis--on hold
Anemia of chronic disease--Hemoglobin baseline near 8.5, has been at baseline while here--Secondary to multiple chronic ailments including hepatic cellular carcinoma
Respiratory alkalosis--BMP showing chronically low bicarbonate here, most recently stable at 13--ABG yesterday showed neutral pH, low pCO2 consistent with respiratory alkalosis--Suspect this is related to episodes of pain and possible
hyperventilation
Hyperlipidemia-continue Zetia. Hold statin with elevated LFTs
Enlarged prostate with urinary retention--keep londono cath at d/c--continue Flomax and finasteride--follow up with urology at d/c
Anxiety and depression--continue fluoxetine and Remeron
DVT prophylaxis: Start SCDs
CODE STATUS: DNR
Original Note:
Today's Communication/Plan
-
.
Assessment / Plan
Assessment / Plan
Hepatocellular carcinoma checkpoint inhibitors
Acute kidney injury
Right shoulder in a sling
Right femur fracture nontraumatic likely secondary to metastasis vs Pathological
Acidosis
Conditions present prior to admission
Paroxysmal atrial fibrillation
Anemia of chronic disease
Chronic HFrEF
Severity stenosis
Hypercholesterolemia
hypertension
BPH
Anxiety/depression
Former smoker
Plan
#Hepatocellular carcinoma on checkpoint inhibitors
-On Nivolumab/Ipilimumab
-Oncology following
-Elevated LFTs
-Hold statin
#Acute kidney injury
-Post renal etiology with suspected prerenal component.
-Cre peaked at 2.1 now trending down.
-S/P Londono catheter. Will keep londono in place after failing voiding trial. Outpatient urology evaluation. Keep Londono on d/c
-Creatinine peaked at 2.1, now down trending to 1.7 (with baseline 1.0-1.2)
-Renal status Improving with diuretics on hold, off IV fluids
-Abdominal x-ray 04/14/2024 with no evidence of mechanical intestinal obstruction
# Severe aortic stenosis
# Chronic heart failure with reduced ejection fraction
-Cardiology input appreciated. Monitor Volume status off IV fluids.
-Continue Holding Lasix, Outpatient MWF
-Continue Coreg with Holding Parameters.
-Chest x-ray 04/14/2024 cardiomegaly with borderline pulmonary edema
-Echocardiogram 04/16/2024 with LVEF 30%. Severe aortic stenosis.
#Right femoral fracture-nontraumatic
-Continue with immobilization of right upper extremity with sling.
-Nonweightbearing to right upper extremity.
-Continue pain control. Aggressive bowel regimen
-CT upper extremity acute comminuted pathologic fracture through a 6.5 cm lytic osseous metastasis in the proximal right humerus. The fracture is associated with 5 mm impaction and 5 mm anterolateral displacement of the major distal fracture fragment
-Ortho following. nonemergent reverse total shoulder replacement planned, anticipated surgical date 04/21/24
-Cardiology consulted for preoperative cardiac risk assessment.- 'He is higher CV risk. Optimize his clinical status prior to surgery'
-Eliquis held for procedure
#Respiratory Alkalosis
-BMP with low bicarb , now stable at 13.
-ABG with neutral pH, Low Pco2, consistent with respiratory alkalosis, possibly due to Hyperventilation from episodes of pain.
-Now improving.
-Monitor BMP
# Deconditioning-PT OT
# Paroxysmal atrial fibrillation-continue amiodarone, Coreg,Hold Eliquis
# Anemia likely secondary to malignancy
# Chronic heart failure with reduced ejection fraction-Hold Lasix
# Hypertension-continue Coreg, Hold lisinopril
# Hyperlipidemia-continue Zetia. Hold statin with elevated LFTs
# Enlarged prostate-continue Flomax and finasteride
# Anxiety and depression-continue fluoxetine and Remeron
# Severe aortic stenosis
# Ex-smoker
DVT prophylaxis-Eliquis
CODE STATUS- DNR
Anticipated Discharge: > 48 hours
Subjective/Interval History
-
Patient seen and examined at bedside. No acute events overnight. Denies acute complaints. Denies cp, sob. Passing gas.
Objective Data
-
Labs:
Laboratory Results
04/20/24 04/20/24
05:14 05:15
WBC 10.5
Hgb 8.6 L
Hct 26.0 L
Plt Count 275
Sodium 136
Potassium 4.9
Chloride 107
Carbon Dioxide 15 L
BUN 55 H
Creatinine 1.7 H
Glucose 91
Calcium 7.8 L
Total Bilirubin 3.3 H D
AST 115 H
ALT 166 H
Alkaline Phosphatase 886 H
Vital Signs:
Vital Signs
Temp Pulse Resp BP Pulse Ox
97.5 F 85 14 95/66 97
04/19/24 23:00 04/19/24 23:00 04/19/24 23:00 04/19/24 23:00 04/19/24 23:00
I&O
04/19/24 04/20/24 04/21/24
06:59 06:59 06:59
Intake Total 1560 / 1560 630 / 630
Output Total 1825 / 1825 1125 / 1125
Balance -265 / -265 -495 / -495
Review of Systems
-
All other systems: Reviewed and negative (except as documented. )
Physical Exam
-
General: Other (right shoulder in sling)
Respiratory: Clear to Auscultation
Cardiac: S1/S2
GI: Soft, Nontender, Nondistended and Normal Bowel Sounds
Musculoskeletal: No Edema
Neuro: AO x 3
Psych: Calm
[2024-04-20] MEDS: COREG PO ×2 (09:07→21:41)
--- NOTE | 2024-04-20 09:21 | PTCARENOTE ---
[place]ubay text to Brian DEE to update londono order reason. Currently order says to remove catheter 04/19 at 0600 but hospitalist note from yesterday says to maintain londono and that urology cynthia follow up with patient on when to take it out
[2024-04-20] MEDS: PROSCAR 5 MG PO (09:23)
[2024-04-20] MEDS: VITAMIN C 500 MG PO (09:23)
[2024-04-20] MEDS: FLOMAX 0.4 MG PO (09:23)
[2024-04-20] MEDS: ZETIA 10 MG PO (09:23)
[2024-04-20] MEDS: VITAMIN B-12 500 MCG PO (09:24)
[2024-04-20] MEDS: LIDOCAINE 4% PATCH TOPICAL (09:25)
[2024-04-20] MEDS: PACERONE 200 MG PO (09:26)
--- NOTE | 2024-04-20 10:56 | W.PN.CARDCBS ---
Addendum entered and electronically signed by Kwabena Boyd MD 04/20/24 13:23:
I saw and evaluated the patient. I reviewed the resident�s note and agree with findings and plan as documented in the resident�s note.
General: Well developed, well nourished in NAD.
Neck: Supple, no JVD, HJR, carotids +2 B/L, no bruits bilaterally.
Heart: Non displaced PMI, RRR, 2/6 basal systolic murmur, No S3, S4, no rubs.
Lungs: Scattered rhonchi
Right arm sling
Extremities: No clubbing, cyanosis or edema bilaterally.
Neuro: Grossly nonfocal, awake, alert and oriented x3.
Stable cardiology status for right shoulder surgery on 04/21. Patient and understand he is at increased risk but not prohibitive. Will put back on telemetry
Original Note:
Today's Communication / Plan
-
back on telemetry
Daily BMP
Continue holding Eliquis, Lasix and lisinopril
Impression / Plan
-
PCP: Dr. Vyas
Cardiology: Dr. Jessica Richards
Assessment: 79-year-old male with PMH of HFrEF, paroxysmal A-fib on Eliquis, essential hypertension, metastatic SCC who presented to ED on 04/13/2004 with right pathologic humeral fracture. Cardiology was consulted due to low blood pressure and
risk stratification for planned surgical intervention.
Impression:
Presentation with weakness
Pathologic right humeral fracture, plan for surgical repair 04/21/2024
Hepatocellular carcinoma with osseous metastasis, on checkpoint inhibitors (Nivolumab/Ipilimumab)
Acute on chronic renal insufficiency
Severe
Chronic heart failure with reduced EF
Nonischemic cardiomyopathy, EF 30%
CAD with 60% stenosis of small second diagonal branch, medically managed
Paroxysmal atrial fibrillation
Chronic amiodarone therapy
Chronic Eliquis therapy
Hypertension
Hyperlipidemia
Elevated LFTs
Obstructive sleep apnea
Thyroid nodules
BPH
Former smoker
ECHO 12/04/2023: EF 40%, moderate MR, severe with peak/mean gradients 74/50 mmHg, TORIN 0.9 cm�, PAP 30 to 35 mmHg
ECHO 04/16/24: EF 30%, LV globally hypokinetic, dilated RV, severely dilated LA and dilated RA, at least moderate MR, severe with peak/mean gradient 70/41 mmHg, mild AI, mild TR, PAP 35 to 40 mmHg
Plan:
-Patient presented with weakness. He had recent pathologic right humerus fracture in setting of metastatic hepatocellular carcinoma on treatment with checkpoint inhibitors
-Plan is for surgical repair Saturday 04/21. Continue pain management per ortho/primary service.
-Echo repeated 04/16/24 w/ EF 30% and severe . He is at elevated cardiovascular surgical risk given severe and comorbidities, however given necessity of surgery, risk is not prohibitive
-Lasix and lisinopril remain on hold due to hypotension and FILOMENA. Creat improving, down to 1.7 today.
-Severe has been a known diagnosis, however TAVR work up has been on hold awaiting response to treatment/prognosis for metastatic HCC
-Continue coreg and amiodarone. HR stable. However, given his unstable BP, will place back on tele. Continue holding Lasix.
-Continue holding Eliquis for planned surgery tomorrow.
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
Subjective
Date of Service: April 20, 2024
Objective
Labs:
04/20/24 05:15
04/20/24 05:14
Labs
Hgb 8.6 g/dL (13.0-18.0) L 04/20/24 05:15
Hct 26.0 % (39.0-52.0) L 04/20/24 05:15
Plt Count 275 10^3/uL (130-400) 04/20/24 05:15
PT 22.9 Sec (11.4-14.6) H 04/13/24 10:54
INR 2.04 04/13/24 10:54
Sodium 136 mmol/L (135-145) 04/20/24 05:14
Potassium 4.9 mmol/L (3.5-5.1) 04/20/24 05:14
BUN 55 mg/dl (9-20) H 04/20/24 05:14
Creatinine 1.7 mg/dL (0.7-1.3) H 04/20/24 05:14
Glucose 91 mg/dl (70-99) 04/20/24 05:14
Vital Signs and I&O:
Vital Signs
Temp Pulse Resp BP Pulse Ox
97.9 F 84 14 56 99
04/20/24 07:54 04/20/24 09:26 04/20/24 07:54 04/20/24 09:26 04/20/24 07:54
Vital Signs
Temp Pulse Resp BP Pulse Ox
97.9 F 84 14 56 99
04/20/24 07:54 04/20/24 09:26 04/20/24 07:54 04/20/24 09:26 04/20/24 07:54
Intake & Output
04/18/24 04/19/24 04/20/24 04/21/24
06:59 06:59 06:59 06:59
Intake Total 650 / 650 1560 / 1560 630 / 630
Output Total 450 / 450 1825 / 1825 1125 / 1125
Balance 200 / 200 -265 / -265 -495 / -495
Physical Exam
Physical Exam
GEN: No distress, awake, alert, oriented x3. RUE in sling
HEENT: supple, anicteric, mmm, eomi
LUNGS: CTA B/L, no wheezes/rales
CV: Reg, S1/S2, 2/6 syst LSB
EXT: No cyanosis, clubbing. trace edema of LLE
NEURO: Gross non-focal
SKIN: Warm, pink, dry. No rash
--- NOTE | 2024-04-20 11:49 | W.PN.ONC ---
Today's Communication / Plan
-
Resting comfortably. Anticoagulants have been stopped. Operating room on Saturday.
Impression
Impression
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
Pathologic fracture of surgical neck and proximal metaphysis of right humerus
Severe aortic stenosis
HFrEF
hypotension -normal TSH, ATCH 04/08
FILOMENA
elevated Tbili, transaminitis
PAF on DOAC
LLE weakness, MRI L spine no cord compression
Plan
Plan
metastatic HCC on Nivolumab/Ipilimumab ([facility]) s/p C1 04/09 so FILOMENA and hypotension unlikely related to immunotherapy
known osseous mets in L spine, left ischium/pubic ramus on PET 03/18 -MRI L-Spine no cord compression
right humoral head fracture -ortho recommending right shoulder replacement
nonemergent reverse total shoulder replacement planned
Elevated LFTs
Subjective/Objective
Subjective/Objective
He is feeling reasonably well. He is having less pain with the immobilization of his shoulder. He has no new symptoms. Examination is unchanged.
Vital Signs:
Vital Signs
Temp Pulse Resp BP Pulse Ox
97.7 F 87 14 91/58 100
04/20/24 11:06 04/20/24 11:06 04/20/24 11:06 04/20/24 11:06 04/20/24 11:06
Lab Results:
Laboratory Data
WBC 10.5 10^3/uL (4.8-10.8) 04/20/24 05:15
Hgb 8.6 g/dL (13.0-18.0) L 04/20/24 05:15
Plt Count 275 10^3/uL (130-400) 04/20/24 05:15
PT 22.9 Sec (11.4-14.6) H 04/13/24 10:54
INR 2.04 04/13/24 10:54
eGFR 41.01 04/20/24 05:14
--- NOTE | 2024-04-20 12:50 | CM ---
Patient seen at bedside with and physician/residents. Patient for surgery tomorrow. Patient anticipating possible SNF needs following surgery. CM will continue to follow for discharge planning needs.
Plan; SNF s/p surgery pending functional status.
--- NOTE | 2024-04-20 14:10 | WOUNDNOTE ---
[facility] RN Note: Patient seen for HAPI report for sacral DTI. Patient for R total shoulder replacement for pathological fracture tomorrow. Patient has hepatocellular ca with bone mets. Patient has several purple areas on sacrum (DTI vs stage 2). Patient
cannot turn self in bed. He confirmed he's being turned in bed by nursing staff. Patient is on a [employer] air bed. Patient reports a poor appetite. Suspect pressure injury unavoidable despite preventative measures in place r/t overall medical
condition and poor appetite.
--- NOTE | 2024-04-20 14:35 | WOUNDNOTE ---
[facility] RN Note: Patient seen for HAPI report for sacral DTI. Patient for R total shoulder replacement for pathological fracture. Patient has hepatocellular ca with bone mets.
--- NOTE | 2024-04-20 15:59 | WOUNDNOTE ---
[facility] RN note: Updated hospitalist resident and ANDRESSA Bonner re: sacral pressure injuries. Dr. Moncada approved local wound care. Yuliya Bonner aware air mattress recommended at SNF.
[2024-04-20] MEDS: FIBERCON 625 MG PO (17:17)
[2024-04-20] MEDS: TYLENOL 1000 MG PO (21:37)
[2024-04-20] MEDS: REMERON 7.5 MG PO (21:37)
[2024-04-21] VITALS (15 sets, daily range): BP systolic 82–101; BP diastolic 59–71; BMI 24.3
--- NOTE | 2024-04-21 05:54 | W.PN.UPDATE ---
Update Note
Progress Note Update
Patient seen and evaluated this AM. Resting comfortably in bed. Plan for Right Reverse Total Shoulder Arthroplasty today under the direction of Dr. Henson. Patient to remain NPO. Pre-op Abx and Irrigation OCTOR. Consent in chart.
[2024-04-21 06:25] LABS: % Basophils 0.3 % (0-2); % Eosinophils 1.5 % (0-6); % Immature Granulocytes 0.9 % (0-0.5); % Monocytes 7.2 % (1.7-9.3); % Neutrophils 82.1 % (42.2-75.2); Absolute Eosinophils 0.2 10^3/uL (0-0.7); Absolute Immature Granulocytes 0.1 10^3/uL (0-0.05); Absolute Lymphocytes 0.9 10^3/uL (1.2-3.4); Absolute Monocytes 0.8 10^3/uL (0.1-0.6); Absolute Neutrophils 9.6 10^3/uL (1.4-6.5); Hematocrit 27.1 % (39.0-52.0); Hemoglobin 9.1 g/dL (13.0-18.0); Mean Corp Hgb Conc. 33.6 g/dL (33.0-37.0); Mean Corpuscular Hgb 28.3 pg (27.0-31.0); Mean Corpuscular Volume 84.2 fL (80.0-94.0); Mean Platelet Volume 10.1 fL (7.4-10.4); Nucleated Red Blood Cells % 0 % (-); Platelet Count 296 10^3/uL (130-400); Red Blood Cell Count 3.22 10^6/uL (4.70-6.10); Red Cell Dist. Width 17.1 % (11.5-14.5); White Blood Cell Count 11.7 10^3/uL (4.8-10.8)
[2024-04-21 07:27] LABS: ALT (SGPT) 152 U/L (0-50); AST (SGOT) 97 U/L (17-59); Albumin 2.9 g/dl (3.5-5.0); Alkaline Phosphatase 838 U/L (38-126); Blood Urea Nitrogen 59 mg/dl (9-20); Carbon Dioxide 16 mmol/L (22-30); Chloride 105 mmol/L (98-107); Direct Bilirubin 2.8 mg/dl (0.0-0.4); Estimated Creatinine Clearance 41 ml/min; Glucose 89 mg/dl (70-99); Potassium 5.2 mmol/L (3.5-5.1); Sodium 136 mmol/L (135-145); Total Bilirubin 3.9 mg/dl (0.2-1.3); eGFR 41.01
--- NOTE | 2024-04-21 07:47 | W.PN.HOSP.TC ---
Addendum entered and electronically signed by Leti Alba MD 04/21/24 14:21:
I saw and evaluated the patient independently. I reviewed the resident�s note and agree with findings and plan as documented by Dr. Moncada.
GENERAL: well developed, well nourished, male in no apparent distress--pt seen in PACU
HEENT: NC/AT--no O2 requirements
HEART: regular rate and rhythm, +S1, +S2, PAULA
LUNGS : clear to auscultation bilaterally
ABDOM: soft, nontender, nondistended, + bowel sounds
EXT: no cyanosis, clubbing, or edema--left shoulder in sling postop
NEUROLOGIC: grossly intact
: londono catheter in place with clear yellow urine
Nontraumatic right humerus fracture likely due to mets and pathologic fracture (CT upper extremity acute comminuted pathologic fracture through a 6.5 cm lytic osseous metastasis in the proximal right humerus)--Eliquis on hold, can restart tomorrow
04/22/24 per ortho--apprec ortho--in PACU developed hypotension, required A-line and levophed--transfer to ICU--hopefully will be able to wean off once anesthesia wears off
Post renal acute kidney injury on CKD due to retention--creat peaked at 2.1--failed voiding trial--cont londono cath at d/c and follow up with urology in office--holding diuretics--
chronic hypotension--Blood pressure has been chronically low though renal function improving slowly--adjust meds per cards--consideration for midodrine--check AM cortisol, if low will proceed with cosyntropin STIM test
Metastatic hepatocellular carcinoma---Metastasis to bone, likely causing pathologic humerus fracture--Currently on checkpoint inhibitor therapy with nivolumab/ipilimumab--apprec onc
Severe aortic stenosis/Chronic heart failure with reduced ejection fraction--lisinopril and lasix on hold--carvedilol holding since BP low
Paroxysmal atrial fibrillation--Home medications include carvedilol and Eliquis--on hold
Anemia of chronic disease--Hemoglobin baseline near 8.5, has been at baseline while here--Secondary to multiple chronic ailments including hepatic cellular carcinoma
metabolic acidosis with Respiratory alkalosis--BMP showing chronically low bicarbonate here, most recently stable at 16--ABG 04/17 showed neutral pH, low pCO2 consistent with respiratory alkalosis--Suspect this is related to episodes of pain and
possible hyperventilation
Hyperlipidemia-continue Zetia. Hold statin with elevated LFTs
Enlarged prostate with urinary retention--keep londono cath at d/c--continue Flomax and finasteride--follow up with urology at d/c
Anxiety and depression--continue fluoxetine and Remeron
DVT prophylaxis: Start SCDs
CODE STATUS: DNR
Original Note:
Today's Communication/Plan
-
.
Assessment / Plan
Assessment / Plan
Hepatocellular carcinoma checkpoint inhibitors
Hypotension
Acute kidney injury
Right shoulder in a sling
Right femur fracture nontraumatic likely secondary to metastasis vs Pathological
Conditions present prior to admission
Paroxysmal atrial fibrillation
Anemia of chronic disease
Chronic HFrEF
Severity stenosis
Hypercholesterolemia
hypertension
BPH
Anxiety/depression
Former smoker
Plan
#Right femoral fracture-nontraumatic s/p R rTSA for R proximal humerus pathological fragility fracture w/ Dr. Henson 04/21/2024
-PT/OT
-Continue with immobilization of right upper extremity with sling.
-Nonweightbearing to right upper extremity.
-Continue pain control. Aggressive bowel regimen
-CT upper extremity acute comminuted pathologic fracture through a 6.5 cm lytic osseous metastasis in the proximal right humerus. The fracture is associated with 5 mm impaction and 5 mm anterolateral displacement of the major distal fracture fragment
-Ortho following
-Eliquis held for procedure, plan to resume tomorrow
# Hypotension on pressor
-Post-op, patient became hypotensive requiring Pressor. Levophed started. A line present
-Transferred to the ICU
-[facility] Consulted
-Patient's baseline Blood pressure typically runs low.
#Hepatocellular carcinoma on checkpoint inhibitors
-On Nivolumab/Ipilimumab
-Oncology following
-Elevated LFTs
-Hold statin
#Acute kidney injury
-Post renal etiology with suspected prerenal component.
-S/P Londono catheter. Will keep londono in place after failing voiding trial. Outpatient urology evaluation. Keep Londono on d/c
-Creatinine peaked at 2.1, now down trending to 1.7 (with baseline 1.0-1.2)
-Renal status Improving with diuretics on hold, off IV fluids
-Abdominal x-ray 04/14/2024 with no evidence of mechanical intestinal obstruction
# Severe aortic stenosis
# Chronic heart failure with reduced ejection fraction
-Cardiology input appreciated. Monitor Volume status off IV fluids.
-Continue Holding Lasix, Outpatient MWF
-Continue Coreg with Holding Parameters.
-Chest x-ray 04/14/2024 cardiomegaly with borderline pulmonary edema
-Echocardiogram 04/16/2024 with LVEF 30%. Severe aortic stenosis.
# Deconditioning-PT OT
# Paroxysmal atrial fibrillation-continue amiodarone, Coreg, Eliquis on hold with plans to resume tomorrow post op D1
# Anemia likely secondary to malignancy
# Chronic heart failure with reduced ejection fraction-Hold Lasix
# Hypertension-continue Coreg, Hold lisinopril
# Hyperlipidemia-continue Zetia. Hold statin with elevated LFTs
# Enlarged prostate-continue Flomax and finasteride
# Anxiety and depression-continue fluoxetine and Remeron
# Severe aortic stenosis
# Ex-smoker
DVT prophylaxis-SCDs
CODE STATUS- DNR
Anticipated Discharge: > 48 hours
Subjective/Interval History
-
Patient was in surgery during rounds. Saw patient after surgery. Per PACU nurse, hypotensive post shoulder replacement. Now on Levophed
Objective Data
-
Labs:
Laboratory Results
04/21/24
06:03
WBC 11.7 H
Hgb 9.1 L
Hct 27.1 L
Plt Count 296
Sodium 136
Potassium 5.2 H
Chloride 105
Carbon Dioxide 16 L
BUN 59 H
Creatinine 1.7 H
Glucose 89
Calcium 8.0 L
Total Bilirubin 3.9 H
AST 97 H
ALT 152 H
Alkaline Phosphatase 838 H
Vital Signs:
Vital Signs
Temp Pulse Resp BP Pulse Ox
97.0 F 78 14 94/63 100
04/21/24 07:20 04/21/24 07:20 04/21/24 07:20 04/21/24 07:20 04/21/24 07:20
I&O
04/20/24 04/21/24 04/22/24
06:59 06:59 06:59
Intake Total 630 / 630 480 / 480
Output Total 1125 / 1125 950 / 950
Balance -495 / -495 -470 / -470
--- NOTE | 2024-04-21 08:14 | PTCARENOTE ---
VSS this AM. Report given to ZEINA Chisholm RN. Patient transported to OR w/ transport personnel and student nurse.
--- NOTE | 2024-04-21 08:46 | PTOTSP ---
Reviewed chart. Pt for OR today for surgical repair of right shoulder. Will hold PT at this time. Will need new orders for PT and OT post-op for therapies to resume tomorrow.
--- NOTE | 2024-04-21 12:04 | W.PN.UPDATE ---
Update Note
Progress Note Update
79M s/p R rTSA for R proximal humerus pathological fragility fracture w/ Dr. Henson
-NWB RUE; sling when OOB
-intraop specimens sent for pathology
-PT/OT/DC planning
-aquacell in place
-pain regimen on board
-may resume Eliquis tomorrow/POD1
-reg diet ordered, otherwise per primary
-ortho surg will continue to follow
[2024-04-21] MEDS: LEVOPHED 250 IV (13:08)
--- NOTE | 2024-04-21 13:55 | CM ---
Patient in PACU, per physician patient now for transfer to ICU. CM will continue to follow for discharge planning needs.
Plan; pending functional assessment, medical treatment plan
--- NOTE | 2024-04-21 14:45 | PTCARENOTE ---
Rec'd patient from PACU. Patient alert and oriented. BIG LAGOON. NSR on tele monitor. +Murmur. Weaned to RA. Lung sounds diminished in b/l base. +BS. Appetite poor. Angel in place. Minimal output. Right arm in sling. Aquacell dressing intact. Patient
denies pain. Neurovascular check wnl. VSS. Levophed infusing at @ 2 mcgs. Titrating off left radial lulu. Zeroed and transduced. Correlating with BP cuff.
[2024-04-21] MEDS: COREG PO ×2 (14:46→20:32)
[2024-04-21] MEDS: VITAMIN C 500 MG PO (16:14)
[2024-04-21] MEDS: PROSCAR 5 MG PO (16:14)
[2024-04-21] MEDS: VITAMIN B-12 500 MCG PO (16:14)
[2024-04-21] MEDS: FLOMAX 0.4 MG PO (16:14)
[2024-04-21] MEDS: ZETIA 10 MG PO (16:14)
[2024-04-21] MEDS: LIDOCAINE 4% PATCH 1 PATCH TOPICAL (16:16)
[2024-04-21] MEDS: PACERONE 200 MG PO (16:16)
--- NOTE | 2024-04-21 16:18 | CON.INTV ---
Consultation
Consultation Request
Date/Time Consultation Requested: 04/21/2024
Date/Time Consultation Performed: 04/21/2024
Requesting Provider: Dr. Alba
Performing Provider: Dr. Rogelio Ahmadi
Reason for Consultation: Shock
Medical History
-
History of Present Illness:
79-year-old man with hepatocellular carcinoma with metastatic to bone, generalized weakness. Right hemorrhoidal fracture nontraumatic about 2 days ago. Found also to be in acute kidney injury. Possibly from urinary retention from enlarged
prostate. Improved with Angel.
Patient was evaluated by Ortho regarding his pathologic fracture. Underwent total shoulder arthroplasty on 04/21/2024. Developed hypotension postoperatively. Required arterial line and transferred to the critical care unit for pressor titration.
Past Medical History
Past Medical History: Other (See assessment and plan)
Social History
Tobacco: Former Smoker (Quit 17 years ago)
Alcohol: None
Drug: None
Personal:
Living: With Family
Employment: Retired
Family History
Family History: Reviewed & Not Pertinent
Allergies / Home Medications
Allergies
Allergy/AdvReac Type Severity Reaction Status Date / Time
No Known Allergies Allergy Verified 03/16/24 13:41
Home Medications
�Medication �Instructions �Recorded �Confirmed �Last Taken �Type
ascorbic acid (vitamin C) 500 mg 500 mg PO DAILY Supplement 01/22/23 04/13/24 04/12/24 History
tablet (Vitamin C)
atorvastatin 20 mg tablet 20 mg PO QPM High Cholesterol 01/22/23 04/13/24 04/12/24 History
cyanocobalamin (vitamin B-12) 500 500 mcg PO DAILY Supplement 01/22/23 04/13/24 04/12/24 History
mcg tablet
ezetimibe 10 mg tablet 10 mg PO DAILY High Cholesterol 01/22/23 04/13/24 04/12/24 History
finasteride 5 mg tablet 5 mg PO DAILY Urinary Issue 01/22/23 04/13/24 04/12/24 History
icosapent ethyl 1 gram capsule 1 g PO BID High Cholesterol 01/22/23 04/13/24 04/12/24 History
omega 3-duz-ctv-fish oil 1,000 mg 1 cap PO BID Supplement 01/22/23 04/13/24 04/12/24 History
(120 mg-180 mg) capsule (Fish Oil)
tamsulosin 0.4 mg capsule 0.4 mg PO DAILY Urinary Issue 01/22/23 04/13/24 04/12/24 History
jlrbtacjkon-ikdufkawd-yrw C-Mn 500 1 cap PO BID Supplement 04/01/23 04/13/24 04/12/24 History
mg-400 mg capsule
methylcellulose (laxative) 500 mg 500 mg PO QPM Constipation 05/17/23 04/13/24 04/12/24 History
tablet (Citrucel)
apixaban 5 mg tablet (Eliquis) 5 mg PO BID Blood Clot 07/17/23 04/13/24 04/12/24 History
Prevention/Tx
acetaminophen 500 mg tablet 1,000 mg PO HS Pain 03/16/24 04/13/24 04/12/24 History
(Tylenol Extra Strength)
amiodarone 200 mg tablet 200 mg PO DAILY Arrhythmia 03/16/24 04/13/24 04/12/24 History
carvedilol 3.125 mg tablet 3.125 mg PO BID Blood Pressure 03/16/24 04/13/24 04/12/24 History
furosemide 20 mg tablet 20 mg PO MOWEFR Fluid 03/16/24 04/13/24 04/10/24 History
Retention/Swelling
gabapentin 100 mg capsule 200 mg PO BIDPRN PRN mild pain 03/16/24 04/13/24 Unknown History
lisinopril 20 mg tablet 20 mg PO DAILY Blood Pressure 03/16/24 04/13/24 04/12/24 History
ipilimumab 50 mg/10 mL (5 mg/mL) 0 mg IV Q3W Cancer 04/13/24 04/13/24 04/09/24 History
intravenous solution
loperamide 2 mg tablet 2 mg PO BIDPRN PRN diarrhea 04/13/24 04/13/24 Unknown History
mirtazapine 7.5 mg tablet 7.5 mg PO HS Depression 04/13/24 04/13/24 04/12/24 History
nivolumab 100 mg/10 mL intravenous 0 mg IV Q3W Cancer 04/13/24 04/13/24 04/09/24 History
solution
tramadol 50 mg tablet 50 mg PO Q8HPRN PRN severe pains 04/13/24 04/13/24 04/13/24 History
Review of Systems
-
History Source: Patient
All other systems: Negative unless noted
Vitals / Labs / Diagnostic Testing
Vital Signs
Temp Pulse Resp BP Pulse Ox
97.8 F 83 18 100/60 98
04/21/24 14:53 04/21/24 16:16 04/21/24 15:30 04/21/24 16:16 04/21/24 15:30
Lab Data
04/21/24 06:03
04/21/24 06:03
Diagnostic Testing:
Physical Exam
-
HEENT: Normocephalic
Cardiovascular: Irregular Rhythm
Respiratory: Non-Labored Respirations
GI: Soft and Non Distended
Neurology: Awake, Alert, Oriented and No Motor Deficits
Skin: Warm
General: Comfortable
Assessment
-
79-year-old man admitted with weakness, multiple medical problems including widely metastatic hepatocellular carcinoma on therapy. Found to have a pathological fracture of the right humerus. Underwent total shoulder arthroplasty 04/21/2024.
Subsequently developed hypotension requiring vasopressors in the PACU. Transferred to the critical care unit for further care.
Status post right total shoulder arthroplasty
Postoperative hypotension:/Shock recurrent vasopressor postoperatively-likely distributive shock
Nontraumatic right humerus fracture likely due to mets and pathologic fracture (CT upper extremity acute comminuted pathologic fracture through a 6.5 cm lytic osseous metastasis in the proximal right humerus)
Conditions present prior admission:
Chronic kidney disease
Chronic hypotension
Metastatic hepatic cellular carcinoma-metastatic to bone, pathologic tumor fracture.
On checkpoint inhibitor therapy
Severe aortic stenosis/chronic heart failure with reduced ejection fraction
Paroxysmal atrial fibrillation
Anemia of chronic disease
Hyperlipidemia
Anxiety
Enlarged prostate with urinary retention
DNR
Assessment and plan:
Critically ill in the critical care unit, arterial line placement
Recurrent Levophed. Shock likely related to postoperative vasodilation with anesthesia.
Will titrate Levophed to systolic blood pressure of 90 mmHg
Hopefully can wean off after sedation wears off.
Status post IV fluid resuscitation
Hold antihypertensives, patient has multiple medications that can lower blood pressure including antihypertensive, Flomax. He also has a low albumin state.
-
Hemoglobin stable-chronic anemia. No evidence for bleeding
-
Renal function overall improved since admission
Follow electrolytes, mild hyperkalemia
Angel in place, patient has enlarged prostate.
-
Atrial fibrillation, rate controlled. Restart medications
Hopefully can restart anticoagulation in the next 24 hours.
-
Will maintain ICU level of care while on Levophed.
-
Critical care statement: A total of 32 minutes of critical care time was provided for this patient today. This includes management of unstable vital signs, evaluation of the patient at bedside, reviewing the patient's pertinent medical records
including ventilator settings, arterial blood gases, radiographs, microbiology, laboratory evaluations and discussion with primary team, critical care nursing, and respiratory therapy.
--- NOTE | 2024-04-21 16:26 | CHAP ---
Introduced myself and Pastoral Care to Mr. Sandy and his at bedside. Provided a prayer blanket. Will follow.
--- NOTE | 2024-04-21 16:30 | PTCARENOTE ---
Levophed weaned off. Vitals stable.
--- NOTE | 2024-04-21 16:51 | W.PN.CARDCBS ---
Today's Communication / Plan
-
Had some hypotension postoperatively but now off Levophed.
Hold carvedilol tonight and restart in a.m. if blood pressure stable.
Creatinine stable at 1.7.
Overall looks well.
Restart Eliquis in a.m.
Impression / Plan
-
PCP: Dr. Vyas
Cardiology: Dr. Jessica Richards
Assessment: 79-year-old male with PMH of HFrEF, paroxysmal A-fib on Eliquis, essential hypertension, metastatic SCC who presented to ED on 04/13/2004 with right pathologic humeral fracture. Cardiology was consulted due to low blood pressure and
risk stratification for planned surgical intervention.
Impression:
Presentation with weakness
Pathologic right humeral fracture, s/p R TSRA 04/21
Hepatocellular carcinoma with osseous metastasis, on checkpoint inhibitors (Nivolumab/Ipilimumab)
Acute on chronic renal insufficiency
Severe
Chronic heart failure with reduced EF
Nonischemic cardiomyopathy, EF 30%
CAD with 60% stenosis of small second diagonal branch, medically managed
Paroxysmal atrial fibrillation
Chronic amiodarone therapy
Chronic Eliquis therapy
Hypertension
Hyperlipidemia
Elevated LFTs
Obstructive sleep apnea
Thyroid nodules
BPH
Former smoker
ECHO 12/04/2023: EF 40%, moderate MR, severe with peak/mean gradients 74/50 mmHg, TORIN 0.9 cm�, PAP 30 to 35 mmHg
ECHO 04/16/24: EF 30%, LV globally hypokinetic, dilated RV, severely dilated LA and dilated RA, at least moderate MR, severe with peak/mean gradient 70/41 mmHg, mild AI, mild TR, PAP 35 to 40 mmHg
Plan:
-Had some hypotension postop but Levophed is now weaned off and blood pressure stable. Continue to hold lisinopril. Would resume Coreg in a.m. if blood pressure stable.
-Continue amiodarone. HR stable.
-He has known severe aortic stenosis with depressed ejection fraction. Continue to avoid hypotension.
-Hemoglobin stable at 9.1.
-Creatinine stable at 1.7.
-Pain management.
-Continue monitoring on telemetry.
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
Subjective
Date of Service: April 21, 2024
Had some hypotension postop. Denies dizziness lightheadedness or chest pains.
Objective
Labs:
04/21/24 06:03
04/21/24 06:03
Labs
Hgb 9.1 g/dL (13.0-18.0) L 04/21/24 06:03
Hct 27.1 % (39.0-52.0) L 04/21/24 06:03
Plt Count 296 10^3/uL (130-400) 04/21/24 06:03
PT 22.9 Sec (11.4-14.6) H 04/13/24 10:54
INR 2.04 04/13/24 10:54
Sodium 136 mmol/L (135-145) 04/21/24 06:03
Potassium 5.2 mmol/L (3.5-5.1) H 04/21/24 06:03
BUN 59 mg/dl (9-20) H 04/21/24 06:03
Creatinine 1.7 mg/dL (0.7-1.3) H 04/21/24 06:03
Glucose 89 mg/dl (70-99) 04/21/24 06:03
Vital Signs and I&O:
Vital Signs
Temp Pulse Resp BP Pulse Ox
97.8 F 83 24 100/60 99
04/21/24 14:53 04/21/24 16:16 04/21/24 16:15 04/21/24 16:16 04/21/24 16:15
Vital Signs
Temp Pulse Resp BP Pulse Ox
97.8 F 83 24 100/60 99
04/21/24 14:53 04/21/24 16:16 04/21/24 16:15 04/21/24 16:16 04/21/24 16:15
Intake & Output
04/19/24 04/20/24 04/21/24 04/22/24
06:59 06:59 06:59 06:59
Intake Total 1560 / 1560 630 / 630 480 / 480 487.6 / 487.6
Output Total 1825 / 1825 1125 / 1125 950 / 950 225 / 225
Balance -265 / -265 -495 / -495 -470 / -470 262.6 / 262.6
Physical Exam
Physical Exam
GEN: No distress, awake, Ox3
HEENT: supple, anicteric, mmm
LUNGS: CTA, no wheezes/rales
CV: Reg, S1/S2, 1/6 syst LSB, no gallop
ABD: soft, BS+, NT/ND
EXT: dressing intact
NEURO: Gross non-focal
SKIN: No rash
[2024-04-21] MEDS: FIBERCON 625 MG PO (17:29)
[2024-04-21] MEDS: ANCEF 5 IV (17:29)
[2024-04-21 17:56] LABS: INR 1.93; PT 21.9 Sec (11.4-14.6)
[2024-04-21 17:57] LABS: APTT 40.5 Sec (23.4-35.0)
--- NOTE | 2024-04-21 19:30 | PTCARENOTE ---
On assessment pt AAOx3, denies pain and SOB, MOAPA, SR on monitor, RA 98%, poor appetite, londono in place for retention, R shoulder post op dressing dry and intact, old drainage noted, R arm in sling, NV checks q4h, +pulses, no numbness/tingling,
denies pain, no increase in swelling noted, Jazmine zeroed and functioning, call guy in reach.
[2024-04-21] MEDS: REMERON 7.5 MG PO (20:32)
[2024-04-21] MEDS: TYLENOL 1000 MG PO (20:32)
[2024-04-22] VITALS (17 sets, daily range): BP systolic 72–101; BP diastolic 59–76; PULSE 79; O2SAT 100; BMI 25.6
--- NOTE | 2024-04-22 | PTCARENOTE ---
no changes from prior assessment, pt denies pain and SOB, call guy in reach
[2024-04-22] MEDS: ANCEF 5 IV (01:49)
[2024-04-22 03:22] LABS: Hemoglobin 8.1 g/dL (13.0-18.0); Mean Corp Hgb Conc. 33.8 g/dL (33.0-37.0); Mean Platelet Volume 9.9 fL (7.4-10.4); Platelet Count 296 10^3/uL (130-400); Red Blood Cell Count 2.89 10^6/uL (4.70-6.10); White Blood Cell Count 8.2 10^3/uL (4.8-10.8)
[2024-04-22 03:52] LABS: ALT (SGPT) 109 U/L (0-50); AST (SGOT) 84 U/L (17-59); Albumin 2.7 g/dl (3.5-5.0); Alkaline Phosphatase 731 U/L (38-126); Blood Urea Nitrogen 64 mg/dl (9-20); Calcium 7.4 mg/dl (8.4-10.2); Carbon Dioxide 12 mmol/L (22-30); Chloride 107 mmol/L (98-107); Estimated Creatinine Clearance 41 ml/min; Glucose 130 mg/dl (70-99); Magnesium 2.7 mg/dl (1.6-2.3); Potassium 5.8 mmol/L (3.5-5.1); Sodium 134 mmol/L (135-145); Total Bilirubin 2.8 mg/dl (0.2-1.3); Total Protein 5.8 g/dl (6.3-8.2); eGFR 41.01
[2024-04-22 04:15] LABS: Cortisol, Random 24.6 ug/dl
--- NOTE | 2024-04-22 06:30 | PTCARENOTE ---
pt denies pain and SOB, refused to be turned at this time, Shannen zeroed and functioning, call guy in reach.
--- NOTE | 2024-04-22 07:14 | W.PN.ORTHO ---
Today's Communication / Plan
-
79M s/p R rTSA for R proximal humerus pathological fragility fracture w/ Dr. Henson
--NWB RUE; siddharth when OOB. We appreciate the assistance of PT/OT.
--Intraop specimens sent for pathology. Continue to follow.
--Maintain surgical dressing until 2 weeks post-op. Staple removal at 2 weeks post-op.
--Continue pain control as needed.
--May resume Eliquis today.
--Orthopedics will continue to follow along.
Assessment
.
Dressing:
Clean, dry and intact.
Plan
.
Surgery / Date: Right reverse TSA for pathologic fracture
DVT Prophylaxis: Other (Eliquis)
Activity:
Out of bed.
PT/OT
Subjective
.
.:
Mr. Sandy is resting comfortably in bed this morning. He reports his pain has improved significantly since surgery. He is starting to get a small amount of movement back in his fingers following the nerve block. He has no questions or concerns at
this time.
Vital Signs and Labs
.
Vital Signs and Labs:
Lab Results
04/22/24 03:09
04/22/24 03:09
Temp Pulse Resp BP Pulse Ox
97.5 F 80 21 101/73 98
04/22/24 03:35 04/22/24 06:45 04/22/24 06:45 04/22/24 06:00 04/22/24 06:45
PT 21.9 Sec (11.4-14.6) H 04/21/24 17:40
INR 1.93 04/21/24 17:40
Physical Exam
-
Directed exam of the right upper extremity reveals surgical dressing with small strikethrough of blood, otherwise clean, dry and intact. No significant tenderness to palpation about the shoulder. Patient able to wiggle fingers. Capillary refill <2
seconds.
[2024-04-22] MEDS: SODIUM BICARBONATE 50 MEQ IV (07:51)
[2024-04-22] MEDS: LIDOCAINE 4% PATCH 1 PATCH TOPICAL (07:56)
[2024-04-22] MEDS: FLOMAX 0.4 MG PO (07:56)
[2024-04-22] MEDS: ZETIA 10 MG PO (07:56)
[2024-04-22] MEDS: VITAMIN B-12 500 MCG PO (07:56)
[2024-04-22] MEDS: COREG 3.125 MG PO (07:57)
[2024-04-22] MEDS: VITAMIN C 500 MG PO (07:57)
[2024-04-22] MEDS: PACERONE 200 MG PO (07:57)
[2024-04-22] MEDS: PROSCAR 5 MG PO (07:57)
[2024-04-22] MEDS: SODIUM BICARBONATE 1150 MEQ IV (08:12)
--- NOTE | 2024-04-22 08:44 | W.PN.HOSP.TC ---
Addendum entered and electronically signed by Leti Alba MD 04/22/24 20:28:
I saw and evaluated the patient independently. I reviewed the resident�s note and agree with findings and plan as documented by Dr. Moncada.
GENERAL: well developed, well nourished, male in no apparent distress
HEENT: NC/AT--no O2 requirements
HEART: regular rate and rhythm, +S1, +S2, PAULA
LUNGS : clear to auscultation bilaterally
ABDOM: soft, nontender, nondistended, + bowel sounds
EXT: no cyanosis, clubbing, or edema--left shoulder in sling postop
NEUROLOGIC: grossly intact
: londono catheter in place with clear yellow urine
Nontraumatic right humerus fracture likely due to mets and pathologic fracture (CT upper extremity acute comminuted pathologic fracture through a 6.5 cm lytic osseous metastasis in the proximal right humerus)--Eliquis on hold, s/p reverse total
shoulder replacement POD1--restart Eliquis 04/22/24 --apprec ortho--hypotension resolved but pt BP runs low at baseline--start midodrine
Post renal acute kidney injury on CKD due to retention--creat peaked at 2.1, down to 1.8--failed voiding trial--cont londono cath at d/c and follow up with urology in office--holding diuretics--
chronic hypotension--Blood pressure has been chronically low though renal function improving slowly--adjust meds per cards--start midodrine-- AM cortisol adequate, no need for cosyntropin STIM test
Metastatic hepatocellular carcinoma---Metastasis to bone, likely causing pathologic humerus fracture--Currently on checkpoint inhibitor therapy with nivolumab/ipilimumab--apprec onc
Severe aortic stenosis/Chronic heart failure with reduced ejection fraction--lisinopril and lasix on hold--carvedilol holding since BP low
Paroxysmal atrial fibrillation--Home medications include carvedilol and Eliquis--on hold
Anemia of chronic disease--Hemoglobin baseline near 8.5, has been at baseline while here--Secondary to multiple chronic ailments including hepatic cellular carcinoma
metabolic acidosis with Respiratory alkalosis--BMP showing chronically low bicarbonate here, most recently stable at 16--ABG 04/17 showed neutral pH, low pCO2 consistent with respiratory alkalosis--Suspect this is related to episodes of pain and
possible hyperventilation
Hyperlipidemia-continue Zetia. Hold statin with elevated LFTs
Enlarged prostate with urinary retention--keep londono cath at d/c--continue Flomax and finasteride, consider stopping flomax with low BPs--follow up with urology at d/c
Anxiety and depression--continue fluoxetine and Remeron
DVT prophylaxis: Start SCDs
CODE STATUS: DNR
Addendum entered and electronically signed by Brian Moncada MD, Resident 04/22/24 16:32:
Stage 2 sacral pressure injury. Appreciate wound care input.
Original Note:
Today's Communication/Plan
-
.
Assessment / Plan
Assessment / Plan
Hepatocellular carcinoma checkpoint inhibitors
Hypotension
Acute kidney injury
Right shoulder in a sling
Right femur fracture nontraumatic likely secondary to metastasis vs Pathological
Conditions present prior to admission
Paroxysmal atrial fibrillation
Anemia of chronic disease
Chronic HFrEF
Severity stenosis
Hypercholesterolemia
hypertension
BPH
Anxiety/depression
Former smoker
Plan
#Right femoral fracture-nontraumatic s/p R rTSA for R proximal humerus pathological fragility fracture w/ Dr. Henson 04/21/2024
-PT/OT
-Continue with immobilization of right upper extremity with sling.
-Nonweightbearing to right upper extremity.
-Continue pain control. Aggressive bowel regimen
-CT upper extremity acute comminuted pathologic fracture through a 6.5 cm lytic osseous metastasis in the proximal right humerus. The fracture is associated with 5 mm impaction and 5 mm anterolateral displacement of the major distal fracture fragment
-Ortho following
-Eliquis resumed today
# Hypotension
-Weaned off on pressor
-Post-op, patient became hypotensive requiring Pressor. Weaned off pressor. A line removed.
-Monitor Blood pressure
#Hepatocellular carcinoma on checkpoint inhibitors
-On Nivolumab/Ipilimumab
-Oncology following
-Elevated LFTs
-Hold statin
#Acute kidney injury
-Post renal etiology with suspected prerenal component.
-S/P Londono catheter. Will keep londono in place after failing voiding trial. Outpatient urology evaluation. Keep Londono on d/c
-Creatinine peaked at 2.1, now down trending to 1.7 (with baseline 1.0-1.2)
-Renal status Improving with diuretics on hold
-Abdominal x-ray 04/14/2024 with no evidence of mechanical intestinal obstruction
#Acidosis
Co2 15 today.
Soduim bicarb IV.
-Etiology likely continuous IVF, RTA.
-Will monitor BMP
# Severe aortic stenosis
# Chronic heart failure with reduced ejection fraction
-Cardiology input appreciated. Monitor Volume status off IV fluids.
-Continue Holding Lasix, Outpatient MWF
-Continue Coreg with Holding Parameters.
-Chest x-ray 04/14/2024 cardiomegaly with borderline pulmonary edema
-Echocardiogram 04/16/2024 with LVEF 30%. Severe aortic stenosis.
# Deconditioning-PT OT
# Paroxysmal atrial fibrillation-continue amiodarone, Coreg, Eliquis RESUMED.
# Anemia likely secondary to malignancy
# Chronic heart failure with reduced ejection fraction-Hold Lasix
# Hypertension-continue Coreg, Hold lisinopril
# Hyperlipidemia-continue Zetia. Hold statin with elevated LFTs
# Enlarged prostate-continue Flomax and finasteride
# Anxiety and depression-continue fluoxetine and Remeron
# Severe aortic stenosis
# Ex-smoker
DVT prophylaxis-eLIQUIS
CODE STATUS- DNR
Anticipated Discharge: > 48 hours
Subjective/Interval History
-
Patient seen and examined at bedside. Reports pain since surgery slightly improved. Resting comfortably in bed.
Objective Data
-
Labs:
Laboratory Results
04/22/24 04/22/24
03:09 12:00
WBC 8.2
Hgb 8.1 L
Hct 24.0 L
Plt Count 296
Sodium 134 L Pending
Potassium 5.8 H Pending
Chloride 107 Pending
Carbon Dioxide 12 L* Pending
BUN 64 H Pending
Creatinine 1.7 H Pending
Glucose 130 H Pending
Calcium 7.4 L Pending
Total Bilirubin 2.8 H
AST 84 H
ALT 109 H
Alkaline Phosphatase 731 H
Vital Signs:
Vital Signs
Temp Pulse Resp BP Pulse Ox
96.9 F L 80 15 107/59 97
04/22/24 07:48 04/22/24 07:57 04/22/24 07:30 04/22/24 07:57 04/22/24 08:01
I&O
04/21/24 04/22/24 04/23/24
06:59 06:59 06:59
Intake Total 480 / 480 487.6 / 487.6 100 / 100
Output Total 950 / 950 625 / 625
Balance -470 / -470 -137.4 / -137.4 100 / 100
Physical Exam
-
General: No Apparent Distress
Respiratory: Clear to Auscultation
Cardiac: S1/S2
GI: Soft, Nontender and Nondistended
Genito-urinary: Londono (clear yellow urine)
Musculoskeletal: Other (left shoulder in sling )
--- NOTE | 2024-04-22 09:09 | PTCARENOTE ---
Rec'd care of patient at 0700. Patient alert and oriented. RAMONA. No complaints. Denies pain. NSR on tele monitor. Rate in the 70-80s. +Murmur. +1 pitting edema in b/l LE. Pulses palpable. Neurovascular check in RUE wnl. Patient wiggling fingers.
Limited range of motion. Arm remains in sling. Dressing intact with small old drainage. Pulse ox 99% on RA. Lung sounds diminished. Fine crackles in b/l base. +BS. Appetite poor. Breakfast encouraged. Patient refused. Angel in place for acute
retention. Draining orange/sarahi urine. Left radial arterial line removed per Milk Inspector. Patient remains off Levophed since 1630 04/21. Vitals stable. 1 amp of bicarb administered for Bicarb level of 12. Bicarb gtt initiated @ 100 mL/hr through
left forearm INT. Repeat BMP ordered for 1200.
--- NOTE | 2024-04-22 09:33 | PTCARENOTE ---
Patient downgraded to [facility].
--- NOTE | 2024-04-22 10:19 | W.PN.CARDCBS ---
Addendum entered and electronically signed by Damaso Echevarria MD 04/22/24 16:56:
I saw and evaluated the patient. I reviewed the resident�s note and agree with findings and plan as documented in the resident�s note.
GEN: No distress, awake, Ox3
HEENT: supple, anicteric, mmm
LUNGS: CTA, no wheezes/rales
CV: Reg, S1/S2, 2/6 syst LSB, no gallop
ABD: soft, BS+, NT/ND
EXT: dressing intact
NEURO: Gross non-focal
SKIN: No rash
Plan:
Blood pressure is overall improved. Would remain off carvedilol for now with his hypotension.
Continue amiodarone and back on Eliquis. Hemoglobin down to 8.1. Continue to follow
Remains in sinus rhythm.
Original Note:
Today's Communication / Plan
-
POD #1
Pain management
Resume Eliquis
Off Levophed
Hold nephrotoxic agents
Continue amiodarone
Hold Coreg
Impression / Plan
-
PCP: Dr. Vyas
Cardiology: Dr. Jessica Richards
Assessment: 79-year-old male with PMH of HFrEF, paroxysmal A-fib on Eliquis, essential hypertension, metastatic SCC who presented to ED on 04/13/2004 with right pathologic humeral fracture. Cardiology was consulted due to low blood pressure and
risk stratification for planned surgical intervention.
Impression:
POD #1 s/p Right Reverse Total Shoulder Arthroplasty 04/21/2024 FOR Pathologic right humeral fracture.
Acute hypotension post-op.
Hepatocellular carcinoma with osseous metastasis, on checkpoint inhibitors (Nivolumab/Ipilimumab)
Acute on chronic renal insufficiency
PMH:
Severe
Chronic heart failure with reduced EF
Nonischemic cardiomyopathy, EF 30%
CAD with 60% stenosis of small second diagonal branch, medically managed
Paroxysmal atrial fibrillation
Chronic amiodarone therapy
Chronic Eliquis therapy
Hypertension
Hyperlipidemia
Elevated LFTs
Obstructive sleep apnea
Thyroid nodules
BPH
Former smoker
ECHO 12/04/2023: EF 40%, moderate MR, severe with peak/mean gradients 74/50 mmHg, TORIN 0.9 cm�, PAP 30 to 35 mmHg
ECHO 04/16/24: EF 30%, LV globally hypokinetic, dilated RV, severely dilated LA and dilated RA, at least moderate MR, severe with peak/mean gradient 70/41 mmHg, mild AI, mild TR, PAP 35 to 40 mmHg
Plan:
POD #1, s/p Right Reverse Total Shoulder Arthroplasty 04/21/2024.
-Develop hypotension post-op, Off Levophed, Lasix and lisinopril held.
-Hold Lasix, lisinopril, Coreg. Will resume when BP improves.
-Resume Eliquis daily.
-Pain management.
-Maintain surgical dressing for 2 weeks postop per orthopedics.
#Acute on chronic renal insufficiency
-Creatinine stable at 1.7.
-Hold nephrotoxic agents.
-Monitor BMP.
#Nonischemic cardiomyopathy, EF 30%
-Echo repeated 04/16/24 w/ EF 30% and severe which has been a known diagnosis. However TAVR work up has been on hold awaiting response to treatment/prognosis for metastatic HCC.
#Paroxysmal A-fib
-Rate controlled.
-Hold Coreg given hypotension.
-Continue to monitor on telemetry.
Progress Note - Donor Recruitment Manager
Subjective
Patient was seen and examined in the room with at bedside. He is feeling better today with no pain. He reports no chest pain, shortness of breath, palpitations, or abdominal pain. His blood pressure remains soft but patient is asymptomatic.
Objective
Labs:
04/21/24 06:03
04/21/24 06:03
Labs
Hgb 9.1 g/dL (13.0-18.0) L 04/21/24 06:03
Hct 27.1 % (39.0-52.0) L 04/21/24 06:03
Plt Count 296 10^3/uL (130-400) 04/21/24 06:03
PT 22.9 Sec (11.4-14.6) H 04/13/24 10:54
INR 2.04 04/13/24 10:54
Sodium 136 mmol/L (135-145) 04/21/24 06:03
Potassium 5.2 mmol/L (3.5-5.1) H 04/21/24 06:03
BUN 59 mg/dl (9-20) H 04/21/24 06:03
Creatinine 1.7 mg/dL (0.7-1.3) H 04/21/24 06:03
Glucose 89 mg/dl (70-99) 04/21/24 06:03
Vital Signs and I&O:
Vital Signs
Temp Pulse Resp BP Pulse Ox
97.0 F 78 14 94/63 100
04/21/24 07:20 04/21/24 07:20 04/21/24 07:20 04/21/24 07:20 04/21/24 07:20
Vital Signs
Temp Pulse Resp BP Pulse Ox
97.0 F 78 14 94/63 100
04/21/24 07:20 04/21/24 07:20 04/21/24 07:20 04/21/24 07:20 04/21/24 07:20
Intake & Output
04/19/24 04/20/24 04/21/24 04/22/24
06:59 06:59 06:59 06:59
Intake Total 1560 / 1560 630 / 630 480 / 480
Output Total 1825 / 1825 1125 / 1125 950 / 950
Balance -265 / -265 -495 / -495 -470 / -470
Physical Exam
Physical Exam
General: Well developed, well nourished in NAD.
Neck: Supple, no JVD, HJR, carotids +2 B/L, no bruits bilaterally.
Heart: Non displaced PMI, RRR, 2/6 basal systolic murmur, No S3, S4, no rubs.
Lungs: Scattered rhonchi
Right arm sling
Extremities: No clubbing, cyanosis or 1+ edema bilaterally.
Neuro: Grossly nonfocal, awake, alert and oriented x3.
[2024-04-22] MEDS: ELIQUIS 5 MG PO ×2 (10:45→21:12)
--- NOTE | 2024-04-22 11:22 | W.PN.INTV ---
Today's Communication / Plan
Recommendations
Discontinue arterial line
Follow H&H
Analgesia
Increase activity as able
Transferred to [facility]
Signed off
Assessment
-
79-year-old man admitted with weakness, multiple medical problems including widely metastatic hepatocellular carcinoma on therapy. Found to have a pathological fracture of the right humerus. Underwent total shoulder arthroplasty 04/21/2024.
Subsequently developed hypotension requiring vasopressors in the PACU. Transferred to the critical care unit for further care.
Status post right total shoulder arthroplasty
Postoperative hypotension:/Shock recurrent vasopressor postoperatively-likely distributive shock
Nontraumatic right humerus fracture likely due to mets and pathologic fracture (CT upper extremity acute comminuted pathologic fracture through a 6.5 cm lytic osseous metastasis in the proximal right humerus)
Conditions present prior admission:
Chronic kidney disease
Chronic hypotension
Metastatic hepatic cellular carcinoma-metastatic to bone, pathologic tumor fracture.
On checkpoint inhibitor therapy
Severe aortic stenosis/chronic heart failure with reduced ejection fraction
Paroxysmal atrial fibrillation
Anemia of chronic disease
Hyperlipidemia
Anxiety
Enlarged prostate with urinary retention
DNR
Assessment and plan:
Shock has resolved
No vasopressors since last night
Discontinue arterial line
Hold antihypertensives, patient has multiple medications that can lower blood pressure including antihypertensive, Flomax. He also has a low albumin state.
-
Hemoglobin stable-chronic anemia. No evidence for bleeding
-Follow H&H
Renal function overall improved since admission
Follow electrolytes, mild hyperkalemia
Angel in place, patient has enlarged prostate.
-
Atrial fibrillation, rate controlled. Restart medications
Hopefully can restart anticoagulation in the next 24 hours.
-
Stage IV widely metastatic hepatocellular carcinoma. On therapy
-
Status post right total shoulder arthroplasty
Sling
Orthopedic surgery following,
Analgesia
Eventual physical therapy
-
Transferred to [facility], critical care team will sign off.
Please call pulmonary if any respiratory issues arise
Subjective Dataa
Subjective Data
Date of Service:
Date of Service: April 22, 2024
Chief Complaint: Imaging System Administrator Follow Up (Shock)
Subjective:
Patient offers no new complaints
Off vasopressors
Denies shortness of breath
Shoulder pain is controlled
Review of Systems
General: Fever (n)
Cardiopulmonary: Dyspnea (none at rest)
GI: Abdominal Pain (n) and Nausea
Neuro: Headache (n)
Objective Data
Data Reviewed
Vital Signs / I&O / Oxygen:
Vital Signs
Temp Pulse Resp BP Pulse Ox
96.9 F L 73 16 91/68 98
04/22/24 07:48 04/22/24 09:05 04/22/24 09:05 04/22/24 09:05 04/22/24 09:05
Intake and Output
04/21/24 04/22/24 04/23/24
06:59 06:59 06:59
Intake Total 480 / 480 487.6 / 487.6 400 / 400
Output Total 950 / 950 625 / 625
Balance -470 / -470 -137.4 / -137.4 400 / 400
SaO2 98
Nasal Cannula flow liters per 2
minute
Physical Exam
General: Comfortable
HEENT: Normocephalic
Cardiovascular: S1-S2
Respiratory: Non-Labored Respirations
GI: Soft and Non Distended
Neurology: Awake and Alert
Skin: Warm and Other (Right arm in the sling)
Labs/Micro/Reports
Lab Data
04/22/24 03:09
Laboratory Results
04/21/24
17:40
PT 21.9 H
INR 1.93
APTT 40.5 H
--- NOTE | 2024-04-22 12:35 | PTCARENOTE ---
Physical therapy at bedside. Repeat BMP sent. No complaints.
[2024-04-22 14:24] LABS: Blood Urea Nitrogen 69 mg/dl (9-20); Calcium 7.3 mg/dl (8.4-10.2); Carbon Dioxide 16 mmol/L (22-30); Chloride 104 mmol/L (98-107); Estimated Creatinine Clearance 39 ml/min; Glucose 125 mg/dl (70-99); Potassium 5.5 mmol/L (3.5-5.1); Sodium 134 mmol/L (135-145); eGFR 38.29
--- NOTE | 2024-04-22 15:34 | PN.CDI ---
CDI
- -
CDI:
Physician Documentation Request
Admit Date: 04/13/24 13:57
Dear Doctor Coral,
Please review the following and provide your response in the progress notes.
Clinical Indicators:
Pt admitted with pathological right humerus fracture.
04/20 WO RN note: ' Patient seen for HAPI report for sacral DTI....Patient has several purple areas on sacrum (DTI vs stage 2)'.
Physician documentation of the type and location of wounds is required for compliant documentation. Based on the above clinical findings and your assessment, please provide the following in your progress note:
Stage 2 sacral pressure injury
Sacral deep tissue injury
Non-pressure injury of the sacrum
Other
Unable to determine
Use of terms such as suspected, likely, concern for, or probable (associated with a specific diagnosis that is being evaluated, monitored, or treated as if it exists) are acceptable and can be coded in the inpatient setting, when documented at the
time of discharge.
Thank you,
Kourtney Bautista RN, BSN
CDI Specialist
Available via [facility] [employer]
Please use your independent medical judgment in providing your response.
*Source: National Pressure Ulcer Advisory Panel (NPUAP)
--- NOTE | 2024-04-22 15:51 | PTCARENOTE ---
Patient's BP 70/60's. MAP 66. HR 60-70's, NSR. Patient sleeping with even unlabored breathing. Easily arousable. Denies dizziness/lightheadedness. No complaints other than being tired. Order for Midodrine 5mg obtained.
[2024-04-22] MEDS: ProAmatine 5 MG PO (16:05)
--- NOTE | 2024-04-22 18:05 | PTCARENOTE ---
BP improved to 90/71 (79) s/p Midodrine.
[2024-04-22] MEDS: FIBERCON 625 MG PO (18:32)
[2024-04-22] MEDS: TYLENOL 1000 MG PO (21:12)
[2024-04-22] MEDS: REMERON 7.5 MG PO (21:12)
[2024-04-23] VITALS (11 sets, daily range): BP systolic 82–100; BP diastolic 53–72; PULSE 82; O2SAT 99; BMI 23.5; BMI 24.5
[2024-04-23 04:41] LABS: % Basophils 0.1 % (0-2); % Eosinophils 0.1 % (0-6); % Immature Granulocytes 0.6 % (0-0.5); % Monocytes 6.2 % (1.7-9.3); Absolute Immature Granulocytes 0.1 10^3/uL (0-0.05); Absolute Lymphocytes 0.8 10^3/uL (1.2-3.4); Absolute Monocytes 0.6 10^3/uL (0.1-0.6); Absolute Neutrophils 7.9 10^3/uL (1.4-6.5); Hematocrit 22.8 % (39.0-52.0); Hemoglobin 7.7 g/dL (13.0-18.0); Mean Corp Hgb Conc. 33.8 g/dL (33.0-37.0); Mean Platelet Volume 9.7 fL (7.4-10.4); Nucleated Red Blood Cells % 0 % (-); Platelet Count 276 10^3/uL (130-400); Red Blood Cell Count 2.85 10^6/uL (4.70-6.10); Red Cell Dist. Width 16.9 % (11.5-14.5); White Blood Cell Count 9.4 10^3/uL (4.8-10.8)
[2024-04-23 05:01] LABS: ALT (SGPT) 137 U/L (0-50); AST (SGOT) 206 U/L (17-59); Albumin 2.7 g/dl (3.5-5.0); Alkaline Phosphatase 711 U/L (38-126); Blood Urea Nitrogen 74 mg/dl (9-20); Calcium 7.4 mg/dl (8.4-10.2); Carbon Dioxide 18 mmol/L (22-30); Chloride 103 mmol/L (98-107); Estimated Creatinine Clearance 39 ml/min; Glucose 95 mg/dl (70-99); Magnesium 2.8 mg/dl (1.6-2.3); Sodium 135 mmol/L (135-145); Total Bilirubin 2.7 mg/dl (0.2-1.3); Total Protein 5.4 g/dl (6.3-8.2); eGFR 38.29
--- NOTE | 2024-04-23 07:59 | W.PN.HOSP.TC ---
Addendum entered and electronically signed by Leti Alba MD 04/23/24 19:32:
I saw and evaluated the patient independently. I reviewed the resident�s note and agree with findings and plan as documented by Dr. Moncada.
GENERAL: well developed, well nourished, male in no apparent distress
HEENT: NC/AT--no O2 requirements
HEART: regular rate and rhythm, +S1, +S2, PAULA
LUNGS : clear to auscultation bilaterally
ABDOM: soft, nontender, nondistended, + bowel sounds
EXT: no cyanosis, clubbing, or edema--left shoulder in sling postop
NEUROLOGIC: grossly intact
: londono catheter in place with clear yellow urine
Nontraumatic right humerus fracture likely due to mets and pathologic fracture (CT upper extremity acute comminuted pathologic fracture through a 6.5 cm lytic osseous metastasis in the proximal right humerus)--Eliquis on hold, s/p reverse total
shoulder replacement POD1--restart Eliquis 04/22/24 --apprec ortho--hypotension resolved but pt BP runs low at baseline--start midodrine, stop flomax
Post renal acute kidney injury on CKD due to retention--creat peaked at 2.1, down to 1.8--failed voiding trial--cont londono cath at d/c and follow up with urology in office--holding diuretics--
chronic hypotension--Blood pressure has been chronically low though renal function improving slowly--adjust meds per cards--start midodrine-- AM cortisol adequate, no need for cosyntropin STIM test
Metastatic hepatocellular carcinoma---Metastasis to bone, likely causing pathologic humerus fracture--Currently on checkpoint inhibitor therapy with nivolumab/ipilimumab--apprec onc
Severe aortic stenosis/Chronic heart failure with reduced ejection fraction--lisinopril and lasix on hold--carvedilol holding since BP low
Paroxysmal atrial fibrillation--Home medications include carvedilol and Eliquis--on hold
Anemia of chronic disease--Hemoglobin baseline near 8.5, has been at baseline while here--Secondary to multiple chronic ailments including hepatic cellular carcinoma
metabolic acidosis with Respiratory alkalosis--BMP showing chronically low bicarbonate here, most recently stable at 18--ABG 04/17 showed neutral pH, low pCO2 consistent with respiratory alkalosis--Suspect this is related to episodes of pain and
possible hyperventilation--bicarb drip per renal
Hyperlipidemia-continue Zetia. Hold statin with elevated LFTs
Enlarged prostate with urinary retention--keep londono cath at d/c--stop Flomax and cont finasteride--follow up with urology at d/c
Anxiety and depression--continue fluoxetine and Remeron
DVT prophylaxis: Start SCDs
CODE STATUS: DNR
Original Note:
Today's Communication/Plan
-
.
Assessment / Plan
Assessment / Plan
Hepatocellular carcinoma checkpoint inhibitors
Hypotension
Acute kidney injury
Right shoulder in a sling
Right femur fracture nontraumatic likely secondary to metastasis vs Pathological
Conditions present prior to admission
Paroxysmal atrial fibrillation
Anemia of chronic disease
Chronic HFrEF
Severity stenosis
Hypercholesterolemia
hypertension
BPH
Anxiety/depression
Former smoker
Plan
#Right femoral fracture-nontraumatic s/p R rTSA for R proximal humerus pathological fragility fracture w/ Dr. Henson 04/21/2024
-PT/OT
-Continue with immobilization of right upper extremity with sling.
-Nonweightbearing to right upper extremity.
-CT upper extremity acute comminuted pathologic fracture through a 6.5 cm lytic osseous metastasis in the proximal right humerus. The fracture is associated with 5 mm impaction and 5 mm anterolateral displacement of the major distal fracture fragment
-Ortho following
-Eliquis resumed
#Hypotension
-Weaned off on pressor
-Post-op, patient became hypotensive requiring Pressor. Weaned off pressor.
-Monitor Blood pressure
-Midodrine 5 mg TID
#Hepatocellular carcinoma on checkpoint inhibitors
-On Nivolumab/Ipilimumab
-Oncology following
-Elevated LFTs
-Hold statin
#Acute kidney injury
-Post renal etiology with suspected prerenal component.
-S/P Londono catheter. Will keep londono in place after failing voiding trial. Outpatient urology evaluation. Keep Londono on d/c
-Creatinine peaked at 2.1, >>1.8 today (with baseline 1.0-1.2)
-Renal status Improving with diuretics on hold
#Acidosis
Resolving, s/p sodium bicarb IV
-Will monitor BMP
# Anemia
Hemoglobin 7.7 today
-Transfusion protocol if hemoglobin less than 7
# Severe aortic stenosis
# Chronic heart failure with reduced ejection fraction
-Cardiology input appreciated. Monitor Volume status off IV fluids.
-Continue Holding Lasix, Outpatient MWF
-Continue Coreg with Holding Parameters.
-Chest x-ray 04/14/2024 cardiomegaly with borderline pulmonary edema
-Echocardiogram 04/16/2024 with LVEF 30%. Severe aortic stenosis.
# Deconditioning-PT OT
# Paroxysmal atrial fibrillation-continue amiodarone, Coreg, Eliquis RESUMED.
# Anemia likely secondary to malignancy
# Chronic heart failure with reduced ejection fraction-Hold Lasix
# Hypertension-continue Coreg, Hold lisinopril
# Hyperlipidemia-continue Zetia. Hold statin with elevated LFTs
# Enlarged prostate-continue Flomax and finasteride
# Anxiety and depression-continue fluoxetine and Remeron
# Severe aortic stenosis
# Ex-smoker
DVT prophylaxis-eLIQUIS
CODE STATUS- DNR
Disposition; awaiting placement to skilled rehab
Anticipated Discharge: 24 - 48 hours
Subjective/Interval History
-
Date of Service: April 23, 2024
Objective Data
-
Labs:
Laboratory Results
04/23/24
04:16
WBC 9.4
Hgb 7.7 L
Hct 22.8 L
Plt Count 276
Sodium 135
Potassium 5.0
Chloride 103
Carbon Dioxide 18 L
BUN 74 H
Creatinine 1.8 H
Glucose 95
Calcium 7.4 L
Total Bilirubin 2.7 H
AST 206 H
ALT 137 H
Alkaline Phosphatase 711 H
Vital Signs:
Vital Signs
Temp Pulse Resp BP Pulse Ox
97.4 F 78 14 89/62 98
04/23/24 07:40 04/22/24 23:11 04/22/24 23:11 04/22/24 23:11 04/22/24 23:11
I&O
04/22/24 04/23/24 04/24/24
06:59 06:59 06:59
Intake Total 487.6 / 487.6 1300 / 1300
Output Total 625 / 625 825 / 825
Balance -137.4 / -137.4 475 / 475
Review of Systems
-
All other systems: Reviewed and negative (Except as documented)
Physical Exam
-
General: No Apparent Distress
Respiratory: Clear to Auscultation
Cardiac: S1/S2
Genito-urinary: Londono
Musculoskeletal: No Edema
[2024-04-23] MEDS: VITAMIN B-12 500 MCG PO (08:03)
[2024-04-23] MEDS: ELIQUIS 5 MG PO ×2 (08:04→20:06)
[2024-04-23] MEDS: VITAMIN C 500 MG PO (08:04)
[2024-04-23] MEDS: FLOMAX 0.4 MG PO (08:05)
[2024-04-23] MEDS: ProAmatine 5 MG PO ×3 (08:05→17:26)
[2024-04-23] MEDS: PACERONE 200 MG PO (08:05)
[2024-04-23] MEDS: PROSCAR 5 MG PO (08:05)
[2024-04-23] MEDS: ZETIA 10 MG PO (08:05)
[2024-04-23] MEDS: LIDOCAINE 4% PATCH TOPICAL (08:06)
--- NOTE | 2024-04-23 08:18 | W.PN.ORTHO ---
Today's Communication / Plan
-
79M s/p R rTSA for R proximal humerus pathological fragility fracture w/ Dr. Henson
--NWB RUE; sling when OOB. We appreciate the assistance of PT/OT.
--Intraop specimens sent for pathology. Continue to follow.
--Maintain surgical dressing until 2 weeks post-op. Staple removal at 2 weeks post-op.
--Continue pain control as needed.
--Eliquis hasa been resumed
--Orthopedics will continue to follow along.
Assessment
.
Distal Motor Intact: Yes
Dressing:
Clean, dry and intact.
Plan
.
Surgery / Date: Right reverse TSA for pathologic fracture
DVT Prophylaxis: Other (Eliquis)
Activity:
Out of bed.
PT/OT
Subjective
.
.:
Patient resting comfortably in bed this morning. He reports his pain is well controlled. He has been wearing the sling
Vital Signs and Labs
.
Vital Signs and Labs:
Lab Results
04/23/24 04:16
04/23/24 04:16
Temp Pulse Resp BP Pulse Ox
97.4 F 77 16 92/69 96
04/23/24 07:40 04/23/24 08:13 04/23/24 08:13 04/23/24 08:08 04/23/24 08:13
PT 21.9 Sec (11.4-14.6) H 04/21/24 17:40
INR 1.93 04/21/24 17:40
Physical Exam
-
Directed exam of the right upper extremity reveals surgical dressing with small strikethrough of blood, otherwise clean, dry and intact. No significant tenderness to palpation about the shoulder. Patient able to wiggle fingers. Capillary refill <2
seconds.
--- NOTE | 2024-04-23 08:28 | W.PN.CARDCBS ---
Today's Communication / Plan
-
Remains in sinus. Overall feeling well but blood pressure remains marginal. Continue midodrine.
Continue amiodarone and Eliquis. Hemoglobin down to 7.7. Would consider transfusion if hemoglobin falls further.
Weight is increased today. Creatinine at 1.8. Continue to follow. Potassium is now normal. Continue to hold lisinopril.
His weight is up significantly. Will check proBNP and reweigh patient. May need to restart Lasix. ?Weight up 10 pounds.
Impression / Plan
-
PCP: Dr. Vyas
Cardiology: Dr. Jessica Richards
Assessment: 79-year-old male with PMH of HFrEF, paroxysmal A-fib on Eliquis, essential hypertension, metastatic SCC who presented to ED on 04/13/2004 with right pathologic humeral fracture. Cardiology was consulted due to low blood pressure and
risk stratification for planned surgical intervention.
Impression:
POD #1 s/p Right Reverse Total Shoulder Arthroplasty 04/21/2024 FOR Pathologic right humeral fracture.
Acute hypotension post-op.
Hepatocellular carcinoma with osseous metastasis, on checkpoint inhibitors (Nivolumab/Ipilimumab)
Acute on chronic renal insufficiency
PMH:
Severe
Chronic heart failure with reduced EF
Nonischemic cardiomyopathy, EF 30%
CAD with 60% stenosis of small second diagonal branch, medically managed
Paroxysmal atrial fibrillation
Chronic amiodarone therapy
Chronic Eliquis therapy
Hypertension
Hyperlipidemia
Elevated LFTs
Obstructive sleep apnea
Thyroid nodules
BPH
Former smoker
ECHO 12/04/2023: EF 40%, moderate MR, severe with peak/mean gradients 74/50 mmHg, TORIN 0.9 cm�, PAP 30 to 35 mmHg
ECHO 04/16/24: EF 30%, LV globally hypokinetic, dilated RV, severely dilated LA and dilated RA, at least moderate MR, severe with peak/mean gradient 70/41 mmHg, mild AI, mild TR, PAP 35 to 40 mmHg
Plan:
POD #2, s/p Right Reverse Total Shoulder Arthroplasty 04/21/2024.
-Blood pressure continues to remain marginal. Okay to continue midodrine. Hopefully this will improve over the next 24 to 48 hours.
-Hold Lasix, lisinopril, Coreg. Will resume when BP improves.
-Resume Eliquis 5 bid
-Pain management.
-Maintain surgical dressing for 2 weeks postop per orthopedics.
-Hg down to 7.7. consider transfusion
#Acute on chronic renal insufficiency
-Creatinine stable at 1.8.
-Hold nephrotoxic agents.
-Monitor BMP.
#Nonischemic cardiomyopathy, EF 30%
-Echo repeated 04/16/24 w/ EF 30% and severe which has been a known diagnosis. However TAVR work up has been on hold awaiting response to treatment/prognosis for metastatic HCC.
-Weight is overall up. Will reweigh today. May need to restart Lasix.
#Paroxysmal A-fib
-remains in sinus. Cont Amiodarone/Eliquis
Progress Note - Supervisor Payroll
Subjective
Date of Service: April 23, 2024
Overall feels well. Denies dizziness or chest pains.
Objective
Labs:
04/23/24 04:16
04/23/24 04:16
Labs
Hgb 7.7 g/dL (13.0-18.0) L 04/23/24 04:16
Hct 22.8 % (39.0-52.0) L 04/23/24 04:16
Plt Count 276 10^3/uL (130-400) 04/23/24 04:16
PT 21.9 Sec (11.4-14.6) H 04/21/24 17:40
INR 1.93 04/21/24 17:40
APTT 40.5 Sec (23.4-35.0) H 04/21/24 17:40
Sodium 135 mmol/L (135-145) 04/23/24 04:16
Potassium 5.0 mmol/L (3.5-5.1) 04/23/24 04:16
BUN 74 mg/dl (9-20) H 04/23/24 04:16
Creatinine 1.8 mg/dL (0.7-1.3) H 04/23/24 04:16
Glucose 95 mg/dl (70-99) 04/23/24 04:16
Vital Signs and I&O:
Vital Signs
Temp Pulse Resp BP Pulse Ox
97.4 F 77 16 96
04/23/24 07:40 04/23/24 08:13 04/23/24 08:13 04/23/24 08:08 04/23/24 08:13
Vital Signs
Temp Pulse Resp BP Pulse Ox
97.4 F 77 16 96
04/23/24 07:40 04/23/24 08:13 04/23/24 08:13 04/23/24 08:08 04/23/24 08:13
Intake & Output
04/21/24 04/22/24 04/23/24 04/24/24
06:59 06:59 06:59 06:59
Intake Total 480 / 480 487.6 / 487.6 1300 / 1300
Output Total 950 / 950 625 / 625 825 / 825
Balance -470 / -470 -137.4 / -137.4 475 / 475
Physical Exam
Physical Exam
GEN: No distress, awake, Ox3
HEENT: supple, anicteric, mmm
LUNGS: CTA, no wheezes/rales
CV: Reg, S1/S2, 2/6 syst LSB, no gallop
ABD: soft, BS+, NT/ND
EXT: No edema
NEURO: Gross non-focal
SKIN: No rash
[2024-04-23 10:18] LABS: NT-proBNP 21500 pg/ml
--- NOTE | 2024-04-23 10:57 | W.PN.ONC ---
Today's Communication / Plan
-
Metastatic HCC on Nivolumab/Ipilimumab (Yervoy) s/p C1 04/09 so FILOMENA and hypotension unlikely related to immunotherapy
Status post operative approach to humeral fracture\\right humeral head pathology pending
Progressive anemia hemoglobin 7.7 transfuse hemoglobin less than 7.0 g/dL
Elevated LFTs and creatinine stable
Impression
Impression
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
Pathologic fracture of surgical neck and proximal metaphysis of right humerus
Severe aortic stenosis
HFrEF
hypotension -normal TSH, ATCH 04/08
FILOMENA
elevated Tbili, transaminitis
PAF on DOAC
LLE weakness, MRI L spine no cord compression
Subjective/Objective
Subjective/Objective
Patient comfortable reports no pain from shoulder while resting.
Vital Signs:
Vital Signs
Temp Pulse Resp BP Pulse Ox
97.4 F 77 16 92/69 96
04/23/24 07:40 04/23/24 08:13 04/23/24 08:13 04/23/24 08:08 04/23/24 08:13
physical exam shoulder immobilized
Heart regular
Lungs without rales
Lab Results:
Laboratory Data
WBC 9.4 10^3/uL (4.8-10.8) 04/23/24 04:16
Hgb 7.7 g/dL (13.0-18.0) L 04/23/24 04:16
Plt Count 276 10^3/uL (130-400) 04/23/24 04:16
PT 21.9 Sec (11.4-14.6) H 04/21/24 17:40
INR 1.93 04/21/24 17:40
APTT 40.5 Sec (23.4-35.0) H 04/21/24 17:40
eGFR 38.29 04/23/24 04:16
--- NOTE | 2024-04-23 12:46 | PTCARENOTE ---
report given to 4E rn. arin at bedside. pt and provided education and plan of care- verbalized understanding. right shoulder dressing intact, sling on. all safety precautions in place, sent with all belognings.
[2024-04-23 12:57] LABS: Hematocrit 28.3 % (39.0-52.0); Hemoglobin 9.4 g/dL (13.0-18.0)
[2024-04-23] MEDS: FIBERCON 625 MG PO (17:27)
[2024-04-23] MEDS: TYLENOL 1000 MG PO (22:17)
[2024-04-23] MEDS: REMERON 7.5 MG PO (22:17)
[2024-04-24] VITALS (9 sets, daily range): BP systolic 77–135; BP diastolic 52–76; PULSE 91–94; BMI 24.4
[2024-04-24] MEDS: ProAmatine 5 MG PO ×2 (01:06→09:22)
--- NOTE | 2024-04-24 01:15 | PTCARENOTE ---
Addendum entered by Jeanine Schafer RN 04/24/24 03:33:
Patient's BP- 86/59. updated IHSAN gregorio. patient c/o upper back pain right side. lidocaine patch applied as per provider advise instead of tramadol. patient also upset having tele back on/ with interrupted sleep. Explained POC.
Addendum entered by Jeanine Schafer RN 04/24/24 01:37:
Placed patient on tele, SR in 80s with first degree AVB/ BBBC.
Original Note:
Patient's BP- 80/52 ( automatic)74/46 ( manual), HR- 81, Patient is sleeping, asymptomatic. Ihsan Gregorio made aware. New order for stat midodrine PO/ stat H&H.
[2024-04-24 01:18] LABS: Hematocrit 22.9 % (39.0-52.0); Hemoglobin 7.8 g/dL (13.0-18.0)
[2024-04-24] MEDS: LIDOCAINE 4% PATCH 1 PATCH TOPICAL (03:20)
--- NOTE | 2024-04-24 04:35 | PTCARENOTE ---
Patient's BP- 85/59, IHSAN Kumar made aware. no new orders at this time.
--- NOTE | 2024-04-24 07:52 | W.PN.HOSP.TC ---
Addendum entered and electronically signed by Leti Alba MD 04/24/24 16:44:
I saw and evaluated the patient independently. I reviewed the resident�s note and agree with findings and plan as documented by Dr. Moncada.
GENERAL: well developed, well nourished, male in no apparent distress
HEENT: NC/AT--no O2 requirements
HEART: regular rate and rhythm, +S1, +S2, PAULA
LUNGS : clear to auscultation bilaterally
ABDOM: soft, nontender, nondistended, + bowel sounds
EXT: no cyanosis, clubbing, or edema--right shoulder in sling postop
NEUROLOGIC: grossly intact
: londono catheter in place with dark yellow urine
Nontraumatic right humerus fracture likely due to mets and pathologic fracture (CT upper extremity acute comminuted pathologic fracture through a 6.5 cm lytic osseous metastasis in the proximal right humerus)--Eliquis restarted, s/p reverse total
shoulder replacement POD 3 --apprec ortho--hypotension resolved but pt BP runs low at baseline--start midodrine, stop flomax
leukocytosis--CXR with bilateral LL pna--started on zosyn
acute kidney injury--creat peaked at 2.1, down to 1.8, back up again (baseline is 1.0)--failed voiding trial--cont londono cath at d/c and follow up with urology in office--diuretics restarted by cards with elevated pro BNP--consult renal
chronic hypotension--Blood pressure has been chronically low though renal function improving slowly--adjust meds per cards--start midodrine-- AM cortisol adequate, no need for cosyntropin STIM test
Metastatic hepatocellular carcinoma---Metastasis to bone, likely causing pathologic humerus fracture--Currently on checkpoint inhibitor therapy with nivolumab/ipilimumab--apprec onc
Severe aortic stenosis/Chronic heart failure with reduced ejection fraction--lisinopril and lasix on hold--carvedilol holding since BP low
Paroxysmal atrial fibrillation--Home medications include carvedilol and Eliquis--on hold
Anemia of chronic disease--Hemoglobin baseline near 8.5, has been at baseline while here--Secondary to multiple chronic ailments including hepatic cellular carcinoma
metabolic acidosis with Respiratory alkalosis--BMP showing chronically low bicarbonate here, most recently stable at 18--ABG 04/17 showed neutral pH, low pCO2 consistent with respiratory alkalosis--Suspect this is related to episodes of pain and
possible hyperventilation--bicarb drip per renal
Hyperlipidemia-continue Zetia. Hold statin with elevated LFTs
Enlarged prostate with urinary retention--keep londono cath at d/c--stop Flomax and cont finasteride--follow up with urology at d/c
Anxiety and depression--continue fluoxetine and Remeron
DVT prophylaxis: Start SCDs
CODE STATUS: DNR
Original Note:
Today's Communication/Plan
-
Nephrology consult
CXR
Urinalysis
Urine Na
Assessment / Plan
Assessment / Plan
Hepatocellular carcinoma checkpoint inhibitors
Hypotension
Acute kidney injury
Right shoulder in a sling
Right femur fracture nontraumatic likely secondary to metastasis vs Pathological
Leukocytosis
Conditions present prior to admission
Paroxysmal atrial fibrillation
Anemia of chronic disease
Chronic HFrEF
Severity stenosis
Hypercholesterolemia
hypertension
BPH
Anxiety/depression
Former smoker
Plan
#Right femoral fracture-nontraumatic s/p R rTSA for R proximal humerus pathological fragility fracture w/ Dr. Henson 04/21/2024 POD#3
-PT/OT
-Continue with immobilization of right upper extremity with sling.
-Nonweightbearing to right upper extremity.
-CT upper extremity acute comminuted pathologic fracture through a 6.5 cm lytic osseous metastasis in the proximal right humerus. The fracture is associated with 5 mm impaction and 5 mm anterolateral displacement of the major distal fracture fragment
-Ortho following
-Eliquis resumed
#Hypotension
-blood pressure chronically low
-Midodrine dosage increased to 10mg TID
-AM cortisol adequate.
-Stop flomax, as may be contributing.
#Hepatocellular carcinoma on checkpoint inhibitors
-On Nivolumab/Ipilimumab
-Oncology following
-Elevated LFTs
-Hold statin
#Acute kidney injury
-Post renal etiology with suspected prerenal component.
-S/P Londono catheter. Will keep londono in place after failing voiding trial. Outpatient urology evaluation. Keep Londono on d/c
-Creatinine trending up to 2.0 (with baseline 1.0-1.2)
-Check urine sodium.
-Consult Nephrology
-Stop flomax, continue finasteride
#Acidosis
Resolving, s/p sodium bicarb IV
-Will monitor BMP
# Anemia
Hemoglobin 7.7>>9.4>>7.8>>8.0
-Transfusion protocol if hemoglobin less than 7
# Severe aortic stenosis
# Chronic heart failure with reduced ejection fraction
-Cardiology input appreciated. Monitor Volume status off IV fluids.
-Weight Up by 10 pounds.
-One time dose of Lasix today
-Consideration to resume back on Lasix with weight trending up, proBNP 21,500.
-Chest x-ray 04/14/2024 cardiomegaly with borderline pulmonary edema
-Echocardiogram 04/16/2024 with LVEF 30%. Severe aortic stenosis.
#Leukocytosis
-WBC elevated today 14.6, although Afebrile
-Check Urinalysis
-CXR today
# Deconditioning-PT OT
# Paroxysmal atrial fibrillation-continue amiodarone, Eliquis RESUMED.
# Anemia likely secondary to malignancy
# Hyperlipidemia-continue Zetia. Hold statin with elevated LFTs
# Enlarged prostate-STOP Flomax and CONTINUE finasteride
# Anxiety and depression-continue fluoxetine and Remeron
# Ex-smoker
DVT prophylaxis-eLIQUIS
CODE STATUS- DNR
Disposition; awaiting placement to skilled rehab
Anticipated Discharge: 24 - 48 hours
Subjective/Interval History
-
Patient seen and examined at bedside. Reports passing gas. NO BM in 2 days. Reports loss of appetite.
Objective Data
-
Labs:
Laboratory Results
04/24/24 04/24/24
01:11 07:46
WBC Pending
Hgb 7.8 L Pending
Hct 22.9 L Pending
Plt Count Pending
Sodium Pending
Potassium Pending
Chloride Pending
Carbon Dioxide Pending
BUN Pending
Creatinine Pending
Glucose Pending
Calcium Pending
Vital Signs:
Vital Signs
Temp Pulse Resp BP Pulse Ox
98.2 F 82 20 87/58 97
04/24/24 03:32 04/24/24 03:32 04/24/24 03:32 04/24/24 05:55 04/24/24 03:32
I&O
04/23/24 04/24/24 04/25/24
06:59 06:59 06:59
Intake Total 1300 / 1300
Output Total 825 / 825 900 / 900
Balance 475 / 475 -900 / -900
Review of Systems
-
All other systems: Reviewed and negative (except as documented)
Physical Exam
-
General: No Apparent Distress
Respiratory: Clear to Auscultation
Cardiac: S1/S2
GI: Soft, Nontender and Nondistended
Genito-urinary: Londono
Musculoskeletal: No Edema and Other
Neuro: Awake
[2024-04-24 08:14] LABS: Hematocrit 24.6 % (39.0-52.0); Mean Corp Hgb Conc. 32.5 g/dL (33.0-37.0); Mean Corpuscular Hgb 26.9 pg (27.0-31.0); Mean Corpuscular Volume 82.8 fL (80.0-94.0); Mean Platelet Volume 10.6 fL (7.4-10.4); Platelet Count 257 10^3/uL (130-400); Red Blood Cell Count 2.97 10^6/uL (4.70-6.10); Red Cell Dist. Width 17.2 % (11.5-14.5); White Blood Cell Count 14.6 10^3/uL (4.8-10.8)
--- NOTE | 2024-04-24 09:08 | W.PN.ONC2 ---
Today's Communication / Plan
-
PT/OT/nutrition
post operative management per ortho
OH per cardiology
Impression
Impression
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
Pathologic fracture of surgical neck and proximal metaphysis of right humerus s/p Right reverse total shoulder arthroplasty 04/21, pathology pending
Severe aortic stenosis
HFrEF
hypotension -normal TSH, ATCH 04/08
FILOMENA
elevated Tbili, transaminitis
PAF on DOAC
LLE weakness, MRI L spine no cord compression
Plan
Plan
metastatic HCC on Nivolumab/Ipilimumab (Yervoy) s/p C1 04/09 so FILOMENA and hypotension unlikely related to immunotherapy
known osseous mets in L spine, left ischium/pubic ramus on PET 03/18 -MRI L-Spine no cord compression
PT/OT/nutrition
OH management per cardiology
post op R shoulder per ortho
monitor Elevated LFTs -T bili trending down
Subjective/Objective
Chief Complaint
no new complaints
Subjective
using Tylenol and Lidoderm for pain
OH
Working with PT, having difficulty with standing even with 2 assist
Vital Signs:
Vital Signs
Temp Pulse Resp BP Pulse Ox
97.6 F 87 18 77/59 98
04/24/24 07:40 04/24/24 07:40 04/24/24 07:40 04/24/24 07:40 04/24/24 07:40
Lab Results:
Laboratory Data
WBC 14.6 10^3/uL (4.8-10.8) H 04/24/24 07:46
Hgb 8.0 g/dL (13.0-18.0) L 04/24/24 07:46
Plt Count 257 10^3/uL (130-400) 04/24/24 07:46
PT 21.9 Sec (11.4-14.6) H 04/21/24 17:40
INR 1.93 04/21/24 17:40
APTT 40.5 Sec (23.4-35.0) H 04/21/24 17:40
eGFR 38.29 04/23/24 04:16
Physical Exam
right arm sling
HEENT: Moist Mucous Membranes; No Jaundice
Cardiology: Normal Sinus Rhythm
Pulmonary: Clear
GI: Soft
Extremities: Pulses Present; No Edema
Neuro A&O3, speech clear
Review of Systems
Review of Systems
ROS notable for subjective, otherwise negative
--- NOTE | 2024-04-24 09:21 | W.PN.UPDATE ---
Update Note
Progress Note Update
79M POD3 s/p R rTSA for R proximal humerus pathological fragility fracture w/ Dr. Henson (04/21/2024)
--NWB RUE; sling when OOB. We appreciate the assistance of PT/OT.
--Intraop specimens sent for pathology. Continue to follow.
--Maintain surgical dressing until 2 weeks post-op. Staple removal at 2 weeks post-op.
--Continue pain control as needed.
--Eliquis has been resumed for DVT ppx
--Orthopedics will follow peripherally at this time. D/c info up to date
[2024-04-24] MEDS: ELIQUIS 5 MG PO ×2 (09:22→20:48)
[2024-04-24] MEDS: ZETIA 10 MG PO (09:22)
[2024-04-24] MEDS: VITAMIN C 500 MG PO (09:23)
[2024-04-24] MEDS: VITAMIN B-12 500 MCG PO (09:23)
[2024-04-24] MEDS: PACERONE 200 MG PO (09:23)
[2024-04-24] MEDS: PROSCAR 5 MG PO (09:23)
[2024-04-24] MEDS: FLUSH (NSS) 1 FLUSH IV ×3 (09:25→18:03)
[2024-04-24 09:36] LABS: Blood Urea Nitrogen 71 mg/dl (9-20); Calcium 7.2 mg/dl (8.4-10.2); Carbon Dioxide 20 mmol/L (22-30); Chloride 99 mmol/L (98-107); Estimated Creatinine Clearance 34 ml/min; Glucose 92 mg/dl (70-99); Magnesium 2.8 mg/dl (1.6-2.3); Potassium 4.9 mmol/L (3.5-5.1); Sodium 134 mmol/L (135-145); eGFR 33.74
--- NOTE | 2024-04-24 09:40 | W.PN.CARDCBS ---
Addendum entered and electronically signed by Zeke Ventura MD 04/24/24 18:36:
PMH/PSH/SH/FH: Reviewed
Allergies: None
PMH: Cardiac apixaban 5 twice daily, midodrine 5 mg 3 times daily
Outpatient meds amiodarone, atorvastatin, carvedilol Eliquis, ezetimibe, furosemide 20 ipilimumab, lisinopril 20 mg a day, followed by, tamsulosin
ROS: Negative except
77/59, pulse 87, respiratory rate 18, no acute distress, appears chronically ill, head neck exam unremarkable, lungs relatively clear, right arm in sling, loud systolic murmur, regular rate and rhythm, JVD okay, mild edema, abdomen benign,
Echo 04/16: EF 30%, severe , moderate MR, dilated atria, dilated RV, EF of 40%
Hemoglobin is 8.0, platelets are 257, BUN and creatinine are 71 and 2.0, creatinine had been 1.8
Impression/Plan:
See below for pertinent diagnoses
He persists with hypotensive despite addition of midodrine, now postop day 3 following right reverse total shoulder arthroplasty. Cortisol level was 24.6 on April 22
He has FILOMENA on CKD possibly related to hypotension and postoperative state with underlying severe AAS, LV dysfunction. Nephrology has been consulted.
He is not a candidate for TAVR at present and unlikely that he will become a candidate down the road.
He is not in overt heart failure now but proBNP is markedly elevated, options are limited, would not attempt diuresis or marked fluid loading at this time. Florinef could be considered but could also exacerbate acute on chronic heart failure with
reduced EF.
He is still in sinus rhythm on amiodarone.
Defer regarding the need for transfusion to primary service, hemoglobin is 8. If needed, Eliquis could be held at acceptable embolic risk given that patient is in sinus rhythm on amiodarone.
Prognosis is guarded
Addendum entered and electronically signed by Patricia Lopez PA-C 04/24/24 10:35:
Increase Midodrine to 10 mg TID
Original Note:
Today's Communication / Plan
-
Continue to hold nephrotoxic agents
Continue amiodarone/Eliquis
Coreg, lisinopril remain on hold
Consider low dose of Lasix x 1
Impression / Plan
-
PCP: Dr. Vyas
Cardiology: Dr. Jessica Richards
Assessment: 79-year-old male with PMH of HFrEF, paroxysmal A-fib on Eliquis, essential hypertension, metastatic SCC who presented to ED on 04/13/2004 with right pathologic humeral fracture. Cardiology was consulted due to low blood pressure and
risk stratification for planned surgical intervention.
Impression:
s/p Right Reverse Total Shoulder Arthroplasty 04/21/2024 FOR Pathologic right humeral fracture.
Acute hypotension post-op
Hepatocellular carcinoma with osseous metastasis, on checkpoint inhibitors (Nivolumab/Ipilimumab)
Acute on chronic renal insufficiency
Severe
Chronic heart failure with reduced EF
Nonischemic cardiomyopathy, EF 30%
CAD with 60% stenosis of small second diagonal branch, medically managed
Paroxysmal atrial fibrillation
Chronic amiodarone therapy
Chronic Eliquis therapy
Hypertension
Hyperlipidemia
Elevated LFTs
Obstructive sleep apnea
Thyroid nodules
BPH
Former smoker
ECHO 12/04/2023: EF 40%, moderate MR, severe with peak/mean gradients 74/50 mmHg, TORIN 0.9 cm�, PAP 30 to 35 mmHg
ECHO 04/16/24: EF 30%, LV globally hypokinetic, dilated RV, severely dilated LA and dilated RA, at least moderate MR, severe with peak/mean gradient 70/41 mmHg, mild AI, mild TR, PAP 35 to 40 mmHg
Plan:
POD #3, s/p Right Reverse Total Shoulder Arthroplasty 04/21/2024.
-Continues to be hypotensive.
-Hgb 8.0.
-Started on Midodrine 04/23/2024 without improvement. Consider increasing to 10 mg TID.
-May benefit from gentle fluid resuscitation blood vs fluid bolus possibly albumin given low protein/albumin levels
PAF
-Maintaining sinus rhythm. Continue amiodarone
-Back on Eliquis 5 bid
-Maintain surgical dressing for 2 weeks postop per orthopedics.
#Acute on chronic renal insufficiency
-Bump in Creatinine 1.8->2. Possibly dry consider gentle gentle fluid resuscitation.
-Hold nephrotoxic agents.
-Monitor BMP daily
#Nonischemic cardiomyopathy, EF 30%
-Echo repeated 04/16/24 w/ EF 30% and severe which has been a known diagnosis. However TAVR work up has been on hold awaiting response to treatment/prognosis for metastatic HCC.
-Weight has been all over the place. If patient able consider standing scale weight.
-proBNP 21,500 04/23/2024. Could consider gentle diuresis however may further worsen hypotension
#Paroxysmal A-fib
-remains in sinus.
-Cont Amiodarone/Eliquis.
-Abnl LFT but pt has Metastatic HCC
Progress Note - Professional Healthcare Representative
Subjective
Date of Service: April 24, 2024
Patient seen and examined. Patient laying in bed. Patient denies chest pain, shortness of breath, dizziness or lightheadedness.
Objective
Labs:
04/24/24 07:46
04/24/24 07:46
Labs
Hgb 8.0 g/dL (13.0-18.0) L 04/24/24 07:46
Hct 24.6 % (39.0-52.0) L 04/24/24 07:46
Plt Count 257 10^3/uL (130-400) 04/24/24 07:46
PT 21.9 Sec (11.4-14.6) H 04/21/24 17:40
INR 1.93 04/21/24 17:40
APTT 40.5 Sec (23.4-35.0) H 04/21/24 17:40
Sodium 134 mmol/L (135-145) L 04/24/24 07:46
Potassium 4.9 mmol/L (3.5-5.1) 04/24/24 07:46
BUN 71 mg/dl (9-20) H 04/24/24 07:46
Creatinine 2.0 mg/dL (0.7-1.3) H 04/24/24 07:46
Glucose 92 mg/dl (70-99) 04/24/24 07:46
Vital Signs and I&O:
Vital Signs
Temp Pulse Resp BP Pulse Ox
97.6 F 87 18 77/59 98
04/24/24 07:40 04/24/24 09:23 04/24/24 07:40 04/24/24 09:23 04/24/24 09:17
Vital Signs
Temp Pulse Resp BP Pulse Ox
97.6 F 87 18 77/59 98
04/24/24 07:40 04/24/24 09:23 04/24/24 07:40 04/24/24 09:23 04/24/24 09:17
Intake & Output
04/22/24 04/23/24 04/24/24 04/25/24
06:59 06:59 06:59 06:59
Intake Total 487.6 / 487.6 1300 / 1300
Output Total 625 / 625 825 / 825 900 / 900
Balance -137.4 / -137.4 475 / 475 -900 / -900
Physical Exam
Physical Exam
GEN: No distress, awake, Ox3, lying in bed, arm in immobilizer
HEENT: supple, anicteric, mmm
LUNGS: CTA anteriorly, no wheezes/rales
CV: Reg, S1/S2, 2/6 harsh syst murmur
ABD: soft, BS+, NT/ND
EXT:Trace to +1 LE edema, no clubbing or cyanosis
NEURO: Gross non-focal
SKIN: No rash, warm, dry, pink
[2024-04-24] MEDS: DULCOLAX 10 MG RECTAL (13:24)
[2024-04-24] MEDS: ProAmatine 10 MG PO ×2 (13:24→18:02)
--- NOTE | 2024-04-24 13:43 | W.CON.NEPH ---
Consultation
-
Date/Time Consultation Requested: 04/24/24 1100
Date/Time Consultation Performed: 04/24/24 1300
Requesting Provider: Dr. Trevino
Performing Provider: Dr. Thompson
Reason for Consultation: FILOMENA
Medical History
-
Chief Complaint: Right humerus fracture
History of Present Illness:
This is a 79-year-old gentleman who has hepatocellular carcinoma which is metastatic to bone treated with Yervoy. He also has severe aortic stenosis with heart failure reduced ejection fraction of 30% on light diuretic therapy as an outpatient. He
also has atrial fibrillation which is rate controlled with amiodarone. He was admitted at the end of March after a fall resulting in a proximal right humeral fracture. He subsequently underwent reverse shoulder replacement on 04/21/2024. This
was without complication. At the time of admission he was noted to have acute kidney injury with a creatinine of 1.8 up to 2.1. This is unfortunately not improved over his hospitalization. His baseline creatinine is close to 1.0. He is also
noted to be significantly hypotensive which the patient relates to have been present for several months. He also reports that his appetite has been very poor.
Past Medical History
Pathologic right humeral fracture, reverse shoulder replacement 04/21/2024
Hepatocellular carcinoma with osseous metastasis, on checkpoint inhibitors (Nivolumab/Ipilimumab)
Acute on chronic renal insufficiency
Severe
Chronic heart failure with reduced EF
Nonischemic cardiomyopathy, EF 30%
CAD with 60% stenosis of small second diagonal branch, medically managed
Paroxysmal atrial fibrillation
Chronic amiodarone therapy
Chronic Eliquis therapy
Hypertension
Hyperlipidemia
Elevated LFTs
Obstructive sleep apnea
Thyroid nodules
BPH
Social History
Tobacco: Former Smoker
Alcohol: None
Family History
Family History: Not Pertinent
Allergies / Home Medications
Allergy/AdvReac Type Severity Reaction Status Date / Time
No Known Allergies Allergy Verified 03/16/24 13:41
�Medication �Instructions �Recorded �Confirmed �Type
ascorbic acid (vitamin C) 500 mg 500 mg PO DAILY Supplement 01/22/23 04/13/24 History
tablet (Vitamin C)
atorvastatin 20 mg tablet 20 mg PO QPM High Cholesterol 01/22/23 04/13/24 History
cyanocobalamin (vitamin B-12) 500 500 mcg PO DAILY Supplement 01/22/23 04/13/24 History
mcg tablet
ezetimibe 10 mg tablet 10 mg PO DAILY High Cholesterol 01/22/23 04/13/24 History
finasteride 5 mg tablet 5 mg PO DAILY Urinary Issue 01/22/23 04/13/24 History
icosapent ethyl 1 gram capsule 1 g PO BID High Cholesterol 01/22/23 04/13/24 History
omega 6-rxf-qgw-fish oil 1,000 mg 1 cap PO BID Supplement 01/22/23 04/13/24 History
(120 mg-180 mg) capsule (Fish Oil)
tamsulosin 0.4 mg capsule 0.4 mg PO DAILY Urinary Issue 01/22/23 04/13/24 History
izoznwqwznh-vcumalguf-fzm C-Mn 500 1 cap PO BID Supplement 04/01/23 04/13/24 History
mg-400 mg capsule
methylcellulose (laxative) 500 mg 500 mg PO QPM Constipation 05/17/23 04/13/24 History
tablet (Citrucel)
apixaban 5 mg tablet (Eliquis) 5 mg PO BID Blood Clot 07/17/23 04/13/24 History
Prevention/Tx
acetaminophen 500 mg tablet 1,000 mg PO HS Pain 03/16/24 04/13/24 History
(Tylenol Extra Strength)
amiodarone 200 mg tablet 200 mg PO DAILY Arrhythmia 03/16/24 04/13/24 History
carvedilol 3.125 mg tablet 3.125 mg PO BID Blood Pressure 03/16/24 04/13/24 History
furosemide 20 mg tablet 20 mg PO MOWEFR Fluid 03/16/24 04/13/24 History
Retention/Swelling
gabapentin 100 mg capsule 200 mg PO BIDPRN PRN mild pain 03/16/24 04/13/24 History
lisinopril 20 mg tablet 20 mg PO DAILY Blood Pressure 03/16/24 04/13/24 History
ipilimumab 50 mg/10 mL (5 mg/mL) 0 mg IV Q3W Cancer 04/13/24 04/13/24 History
intravenous solution
loperamide 2 mg tablet 2 mg PO BIDPRN PRN diarrhea 04/13/24 04/13/24 History
mirtazapine 7.5 mg tablet 7.5 mg PO HS Depression 04/13/24 04/13/24 History
nivolumab 100 mg/10 mL intravenous 0 mg IV Q3W Cancer 04/13/24 04/13/24 History
solution
tramadol 50 mg tablet 50 mg PO Q8HPRN PRN severe pains 04/13/24 04/13/24 History
Review of Systems
-
No fevers chills or sweats. No chest pain. No shortness of breath. Angel catheter in place.
All other systems: Negative unless noted
Physical Exam
Vital Signs
Vital Signs
Temp Pulse Resp BP Pulse Ox
97.6 F 90 18 93/60 98
04/24/24 07:40 04/24/24 13:24 04/24/24 07:40 04/24/24 13:24 04/24/24 09:17
Lab Results
WBC 14.6 10^3/uL (4.8-10.8) H 04/24/24 07:46
RBC 2.97 10^6/uL (4.70-6.10) L 04/24/24 07:46
Hgb 8.0 g/dL (13.0-18.0) L 04/24/24 07:46
Hct 24.6 % (39.0-52.0) L 04/24/24 07:46
Plt Count 257 10^3/uL (130-400) 04/24/24 07:46
Sodium 134 mmol/L (135-145) L 04/24/24 07:46
Potassium 4.9 mmol/L (3.5-5.1) 04/24/24 07:46
Chloride 99 mmol/L (98-107) 04/24/24 07:46
Carbon Dioxide 20 mmol/L (22-30) L 04/24/24 07:46
BUN 71 mg/dl (9-20) H 04/24/24 07:46
Creatinine 2.0 mg/dL (0.7-1.3) H 04/24/24 07:46
eGFR 33.74 04/24/24 07:46
Glucose 92 mg/dl (70-99) 04/24/24 07:46
Calcium 7.2 mg/dl (8.4-10.2) L 04/24/24 07:46
Ouw-T-Ottahppmhwc Pept 52007 pg/ml 04/23/24 04:16
Albumin 2.7 g/dl (3.5-5.0) L 04/23/24 04:16
Laboratory Tests
24 04/07/24
03:22 12:10
Sodium 143 144
Creatinine 1.3 1.5 H
Physical Exam
Patient is awake alert oriented and in no distress. Mood and affect were pleasant, insight and judgment were good. Pupils are equal round and reactive to light, extraocular movements are intact, sclera were anicteric. Hearing was normal, ears and
nose are intact. Oropharynx was clear. Neck was supple with trachea midline and no thyromegaly. Heart was regular rate and rhythm without rubs. Lower extremities with 1+ edema. Lungs were clear to auscultation bilaterally and with normal
excursion. Abdomen was soft, nontender, with normal active bowel sounds, and no hepatosplenomegaly. Skin was without rash and with normal turgor.
Data Reviewed
-
Radiology: Image Personally Visualized and interpreted (Chest x-ray on 04/21/2024 by my reading shows bilateral lower lung opacities)
Medical Tests (Nuc Med, Echo etc): Image Personally Visualized and interpreted (EKG on 04/15/2024 by my read shows normal sinus rhythm first-degree AV block incomplete left bundle branch block prolonged QT nonspecific ST-T wave abnormalities) and
Report Reviewed by me (Echocardiogram on 04/16/2024 shows ejection fraction 30% severe aortic stenosis, mild tricuspid regurgitation)
Labs: Labs Reviewed by me
Old Records: Reviewed
Assessment/Plan
-
Assessment
FILOMENA
Right reverse shoulder replacement
Hypertension
Severe aortic stenosis
Nonischemic heart failure reduced ejection fraction
Paroxysmal atrial fibrillation
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
Anemia
Plan
Check urine studies
Maintain Agnel catheter
High suspect that his renal failure is due to poor perfusion given his chronic hypotension.
Midodrine will be continued and has been increased.
He does not appear to be in decompensated heart failure given that he is laying supine without supplemental O2 without symptoms therefore we will give some IV fluids
Encourage p.o. intake, add supplements
Follow BMP
Discussed with and patient
[2024-04-24 13:50] LABS: Urine Albumin Trace (Neg - Trace); Urine Bilirubin 1+ (Negative); Urine Glucose Negative (Negative); Urine Ketone Negative (Negative); Urine Leukocyte Trace (Negative); Urine Nitrite Negative (Negative); Urine Occult Blood Negative (Negative); Urine Urobilinogen 2+ (Neg - 1+)
[2024-04-24 13:52] LABS: Urine Color Yellow
[2024-04-24 13:53] LABS: Urine Character Clear (Clear)
[2024-04-24 14:02] LABS: Urine Urothelial Cell 0-2 /LPF (FEW)
[2024-04-24 14:03] LABS: Urine Amorphous Seen
[2024-04-24 14:04] LABS: Urine Hyaline Cast 0-2 /LPF (0-2); Urine Red Blood Cell 0-2 /HPF (0-2)
[2024-04-24] MEDS: NSS 1000 IV (14:41)
[2024-04-24 14:47] LABS: Urine Sodium < 5 mmol/L (30-90)
--- NOTE | 2024-04-24 16:24 | PTCARENOTE ---
Pt AAO x3, [place]; [place] slowly/stiffly; has RUE sling in place. Needs assist x2 to position. VSS. Telemetry:NSR w ith PVC's. Pt has +1 edema of trunk/upper thighs/RUE. On room air- pulse ox 98%, no SOB noted. Abd soft, rounded, pt incont soft
brown BM. Angel P/I clear dark sarahi urine. IVF's NSS @ 70 ml/hr infusing via Lt forearm site without sx of infiltration. Pt resting in bed, no c/o; family at bedside. Will continue to monitor.
[2024-04-24 16:31] LABS: Body Fluid for Eosinophils No Eosinophils seen
[2024-04-24] MEDS: FIBERCON 625 MG PO (18:02)
[2024-04-24] MEDS: ZOSYN 50 IV ×2 (18:03→23:08)
--- NOTE | 2024-04-24 18:05 | CM ---
As per care port [facility] interested.
Pt will need to pick which SNF.
Pt needs auth
PLAN To SNF after auth and medically ready
[2024-04-24] MEDS: REMERON 7.5 MG PO (20:48)
[2024-04-24] MEDS: TYLENOL 1000 MG PO (20:48)
[2024-04-25] VITALS (10 sets, daily range): BP systolic 72–92; BP diastolic 50–68; PULSE 89; O2SAT 100
--- NOTE | 2024-04-25 00:47 | PTCARENOTE ---
Pt found to be taking off court recording monitor as well as his Aquacel dressing and his R arm sling. Patient assessed, is AAOx3. No complaints of pain, stated he was 'just uncomfortable'. This RN placed an ABD pad and tape on his R shoulder. [place] are
intact and approximated. Right shoulder sling placed back on. Staff helped to reposition pt. Educated on importance of keeping tele, dressing, and sling on. Call guy is within reach.
[2024-04-25] MEDS: ProAmatine 10 MG PO ×2 (04:11→10:16)
[2024-04-25] MEDS: ZOSYN 50 IV ×3 (05:02→18:08)
--- NOTE | 2024-04-25 07:49 | W.PN.CARDCBS ---
Addendum entered and electronically signed by Gilmar Patel MD 04/25/24 12:26:
Patient seen and examined
Agree with resident note and assessment
Agree with resident plan
Examination
�
����Physical Exam
�
���������������������General:��no apparent distress, not acutely ill
�
���������������������������Neck:��supple. no meningeal signs. normal psoterior pharynx
������������������������
���������������������������Heart:��s1/s2 regular rate and rhythm, no murmur. equal radial pulses.
�
��������������������������Lungs: ��no acute respiratory distress. clear bilaterally
�
����������������������Abdomen:�normal bowel sounds. not tender. no CVAT
�
��������������������������Neuro:��alert and oriented. no focal neurological deficits
�
������������������������������Skin: ��no rash
�
�����������������������Psychiatric:�well kept. interactive and cooperative
�
�����������������������Extremities:��no edema. no calf tenderness. negative homans. good distal pulses
�
�
�
��
�
Cardiology: Dr. Jessica Richards
Assessment: 79-year-old male with PMH of HFrEF, paroxysmal A-fib on Eliquis, essential hypertension, metastatic SCC who presented to ED on 04/13/2004 with right pathologic humeral fracture. Cardiology was consulted due to low blood pressure and
risk stratification for planned surgical intervention.
Outpatient meds amiodarone, atorvastatin, carvedilol Eliquis, ezetimibe, furosemide 20 ipilimumab, lisinopril 20 mg a day, followed by, tamsulosin.
ROS Nevative except for BP 77/59, pulse 87, respiratory rate 18, no acute distress, appears chronically ill, head neck exam unremarkable, lungs relatively clear, right arm in sling, loud systolic murmur, regular rate and rhythm, JVD okay, mild
edema, abdomen benign. Lower ext pulses palpable, weak.
Hb: 8.4, WBC 21, sodium 133, creatinine 2.4., Platelets 280
Echo 04/16: EF 30%, severe , moderate MR, dilated atria, dilated RV, EF of 40%
Impression:
Nonischemic cardiomyopathy
POD #4 s/p Right Reverse Total Shoulder Arthroplasty 04/21/2024 FOR Pathologic right humeral fracture.
Hepatocellular carcinoma with osseous metastasis, on checkpoint inhibitors (Nivolumab/Ipilimumab)
Bilateral lower lobe pneumonia R>L
Severe
Chronic heart failure with reduced EF
Nonischemic cardiomyopathy, EF 30%
CAD with 60% stenosis of small second diagonal branch, medically managed
Paroxysmal atrial fibrillation
Chronic amiodarone therapy
Chronic Eliquis therapy
Hypertension
Hyperlipidemia
Elevated LFTs
Obstructive sleep apnea
Thyroid nodules
BPH
Former smoker
ECHO 12/04/2023: EF 40%, moderate MR, severe with peak/mean gradients 74/50 mmHg, TORIN 0.9 cm�, PAP 30 to 35 mmHg
ECHO 04/16/24: EF 30%, LV globally hypokinetic, dilated RV, severely dilated LA and dilated RA, at least moderate MR, severe with peak/mean gradient 70/41 mmHg, mild AI, mild TR, PAP 35 to 40 mmHg
Plan:
POD #4, s/p Right Reverse Total Shoulder Arthroplasty 04/21/2024.
-Remains hypotensive despite Midodrine 20 mg p.o. 3 times daily.
-Most likely due to prerenal FILOMENA on CKD from from chronic hypoperfusion.
#Nonischemic cardiomyopathy, EF 30%
-Echo repeated 04/16/24 w/ EF 30% and severe which has been a known diagnosis. However TAVR work up has been on hold awaiting response to treatment/prognosis for metastatic HCC.
-Weight has been all over the place. If patient able consider standing scale weight.
-proBNP 21,500 04/23/2024. Could consider gentle diuresis however may further worsen hypotension
#Bilateral lower lobe pneumonia R>L
-CXR 04/24/2024 with bilateral lower lobe pneumonia progressed on the right, stable on the left.
-Likely due to aspiration.
-Elevate head of bed.
-Continue antibiotics.
-Aspiration precautions.
PAF
-Maintaining sinus rhythm. Continue amiodarone
-Back on Eliquis 5 bid
-Maintain surgical dressing for 2 weeks postop per orthopedics.
#Acute on chronic renal insufficiency
-Worsening creatinine 2.4.
-IV albumin today follow-up protein/albumin level.
-Follow BMP.
-Hold nephrotoxic agents.
Original Note:
Today's Communication / Plan
-
Continue antibiotics
IV albumin
Continue midodrine
Monitor blood pressure
Impression / Plan
-
PCP: Dr. Vyas
Cardiology: Dr. Jessica Richards
Assessment: 79-year-old male with PMH of HFrEF, paroxysmal A-fib on Eliquis, essential hypertension, metastatic SCC who presented to ED on 04/13/2004 with right pathologic humeral fracture. Cardiology was consulted due to low blood pressure and
risk stratification for planned surgical intervention.
Outpatient meds amiodarone, atorvastatin, carvedilol Eliquis, ezetimibe, furosemide 20 ipilimumab, lisinopril 20 mg a day, followed by, tamsulosin.
ROS Nevative except for BP 77/59, pulse 87, respiratory rate 18, no acute distress, appears chronically ill, head neck exam unremarkable, lungs relatively clear, right arm in sling, loud systolic murmur, regular rate and rhythm, JVD okay, mild
edema, abdomen benign. Lower ext pulses palpable, weak.
Hb: 8.4, WBC 21, sodium 133, creatinine 2.4., Platelets 280
Echo 04/16: EF 30%, severe , moderate MR, dilated atria, dilated RV, EF of 40%
Impression:
Nonischemic cardiomyopathy
POD #4 s/p Right Reverse Total Shoulder Arthroplasty 04/21/2024 FOR Pathologic right humeral fracture.
Hepatocellular carcinoma with osseous metastasis, on checkpoint inhibitors (Nivolumab/Ipilimumab)
Bilateral lower lobe pneumonia R>L
Severe
Chronic heart failure with reduced EF
Nonischemic cardiomyopathy, EF 30%
CAD with 60% stenosis of small second diagonal branch, medically managed
Paroxysmal atrial fibrillation
Chronic amiodarone therapy
Chronic Eliquis therapy
Hypertension
Hyperlipidemia
Elevated LFTs
Obstructive sleep apnea
Thyroid nodules
BPH
Former smoker
ECHO 12/04/2023: EF 40%, moderate MR, severe with peak/mean gradients 74/50 mmHg, TORIN 0.9 cm�, PAP 30 to 35 mmHg
ECHO 04/16/24: EF 30%, LV globally hypokinetic, dilated RV, severely dilated LA and dilated RA, at least moderate MR, severe with peak/mean gradient 70/41 mmHg, mild AI, mild TR, PAP 35 to 40 mmHg
Plan:
POD #4, s/p Right Reverse Total Shoulder Arthroplasty 04/21/2024.
-Remains hypotensive despite Midodrine 20 mg p.o. 3 times daily.
-Most likely due to prerenal FILOMENA on CKD from from chronic hypoperfusion.
#Nonischemic cardiomyopathy, EF 30%
-Echo repeated 04/16/24 w/ EF 30% and severe which has been a known diagnosis. However TAVR work up has been on hold awaiting response to treatment/prognosis for metastatic HCC.
-Weight has been all over the place. If patient able consider standing scale weight.
-proBNP 21,500 04/23/2024. Could consider gentle diuresis however may further worsen hypotension
#Bilateral lower lobe pneumonia R>L
-CXR 04/24/2024 with bilateral lower lobe pneumonia progressed on the right, stable on the left.
-Likely due to aspiration.
-Elevate head of bed.
-Continue antibiotics.
-Aspiration precautions.
PAF
-Maintaining sinus rhythm. Continue amiodarone
-Back on Eliquis 5 bid
-Maintain surgical dressing for 2 weeks postop per orthopedics.
#Acute on chronic renal insufficiency
-Worsening creatinine 2.4.
-IV albumin today follow-up protein/albumin level.
-Follow BMP.
-Hold nephrotoxic agents.
Prognosis is guarded
Progress Note - [employer] Worker
Subjective
Date of Service: April 25, 2024
Patient seen and examined in the room lying comfortably in bed in no acute cardiopulmonary distress. Reports feeling better today. Unfortunately, he continues to be hypotensive despite 20 mg of midodrine. His WBC count has increased to 21 and Hb
remains low at 8.4.
Chest x-ray done 04/24/2024 reports bilateral lower lobe pneumonia, however patient is afebrile.
BP currently 80/58, pulse 83, respiratory 18, saturating at 97% on room air. Patient has positive output balance of 570 mL. Denies chest pain, shortness of breath, palpitations, fever, or chills.
Objective
Labs:
Labs
Hgb 8.0 g/dL (13.0-18.0) L 04/24/24 07:46
Hct 24.6 % (39.0-52.0) L 04/24/24 07:46
Plt Count 257 10^3/uL (130-400) 04/24/24 07:46
PT 21.9 Sec (11.4-14.6) H 04/21/24 17:40
INR 1.93 04/21/24 17:40
APTT 40.5 Sec (23.4-35.0) H 04/21/24 17:40
Sodium 134 mmol/L (135-145) L 04/24/24 07:46
Potassium 4.9 mmol/L (3.5-5.1) 04/24/24 07:46
BUN 71 mg/dl (9-20) H 04/24/24 07:46
Creatinine 2.0 mg/dL (0.7-1.3) H 04/24/24 07:46
Glucose 92 mg/dl (70-99) 04/24/24 07:46
Vital Signs and I&O:
Vital Signs
Temp Pulse Resp BP Pulse Ox
98.2 F 80 16 72/50 98
04/25/24 03:00 04/25/24 04:11 04/25/24 03:00 04/25/24 04:11 04/25/24 03:00
Vital Signs
Temp Pulse Resp BP Pulse Ox
98.2 F 80 16 72/50 98
04/25/24 03:00 04/25/24 04:11 04/25/24 03:00 04/25/24 04:11 04/25/24 03:00
Intake & Output
04/23/24 04/24/24 04/25/24 04/26/24
06:59 06:59 06:59 06:59
Intake Total 1300 / 1300 1120 / 1120
Output Total 825 / 825 900 / 900 550 / 550
Balance 475 / 475 -900 / -900 570 / 570
Physical Exam
Physical Exam
GEN: No distress, awake, Ox3, lying in bed, arm in immobilizer
HEENT: supple, anicteric, mmm
LUNGS: CTA anteriorly, no wheezes/rales
CV: Reg, S1/S2, 2/6 harsh syst murmur
ABD: soft, BS+, NT/ND
EXT:Trace to +1 LE edema, no clubbing or cyanosis
NEURO: Gross non-focal
SKIN: No rash, warm, dry, pink
[2024-04-25 10:03] LABS: Hematocrit 24.6 % (39.0-52.0); Hemoglobin 8.4 g/dL (13.0-18.0); Mean Corp Hgb Conc. 34.1 g/dL (33.0-37.0); Mean Corpuscular Hgb 28.7 pg (27.0-31.0); Mean Platelet Volume 10.6 fL (7.4-10.4); Platelet Count 280 10^3/uL (130-400); Red Blood Cell Count 2.93 10^6/uL (4.70-6.10); Red Cell Dist. Width 17.8 % (11.5-14.5)
[2024-04-25] MEDS: ZETIA 10 MG PO (10:15)
[2024-04-25] MEDS: PROSCAR 5 MG PO (10:16)
[2024-04-25] MEDS: ELIQUIS 5 MG PO ×2 (10:16→20:55)
[2024-04-25] MEDS: VITAMIN B-12 500 MCG PO (10:16)
[2024-04-25] MEDS: VITAMIN C 500 MG PO (10:16)
[2024-04-25] MEDS: PACERONE 200 MG PO (10:16)
[2024-04-25] MEDS: LIDOCAINE 4% PATCH 1 PATCH TOPICAL (10:23)
[2024-04-25 10:32] LABS: Blood Urea Nitrogen 76 mg/dl (9-20); Carbon Dioxide 18 mmol/L (22-30); Chloride 99 mmol/L (98-107); Estimated Creatinine Clearance 28 ml/min; Glucose 91 mg/dl (70-99); Potassium 5.1 mmol/L (3.5-5.1); Sodium 133 mmol/L (135-145); eGFR 27.11
--- NOTE | 2024-04-25 11:35 | W.PN.NEPH.PH ---
Today's Communication / Plan
-
albumin
Assessment/Plan
-
Assessment
FILOMENA
Right reverse shoulder replacement
Hypertension
Severe aortic stenosis
Nonischemic heart failure reduced ejection fraction
Paroxysmal atrial fibrillation
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
Anemia
Plan
Check urine studies-FENA<2%
Maintain Angel catheter
Highly suspect that his renal failure is due to poor perfusion given his chronic hypotension.
Midodrine will be continued and has been increased to 20mg TID
He does not appear to be in decompensated heart failure given that he is laying supine without supplemental O2 without symptoms. could give NSS or florinef as last ditch effort
Encourage p.o. intake, add supplements
Follow BMP
IV albumin today
Discussed with and patient at length. They agree that dialysis would likely not be their wish. I discussed with him that quality of life would be worse and that this would have no effect on his cancer which is terminal. Also with his severe
aortic stenosis and reduced heart failure ejection fraction dialysis would likely be also very difficult. I would not recommend dialysis and they are in agreement
-
-
Date of Service: April 25, 2024
CC / HPI / ROS
-
Chief Complaint:
FILOMENA
History of Present Illness:
FILOMENA/Cr worse to 2.4
remains hypotense
O2 sat good on RA
hgb low stable 8.4
Review of Systems:
no CP/SOB
Labs
-
Labs:
WBC 21.0 10^3/uL (4.8-10.8) H 04/25/24 09:08
RBC 2.93 10^6/uL (4.70-6.10) L 04/25/24 09:08
Hgb 8.4 g/dL (13.0-18.0) L 04/25/24 09:08
Hct 24.6 % (39.0-52.0) L 04/25/24 09:08
Plt Count 280 10^3/uL (130-400) 04/25/24 09:08
Sodium 133 mmol/L (135-145) L 04/25/24 09:08
Potassium 5.1 mmol/L (3.5-5.1) 04/25/24 09:08
Chloride 99 mmol/L (98-107) 04/25/24 09:08
Carbon Dioxide 18 mmol/L (22-30) L 04/25/24 09:08
BUN 76 mg/dl (9-20) H 04/25/24 09:08
Creatinine 2.4 mg/dL (0.7-1.3) H 04/25/24 09:08
eGFR 27.11 04/25/24 09:08
Glucose 91 mg/dl (70-99) 04/25/24 09:08
Calcium 7.0 mg/dl (8.4-10.2) L 04/25/24 09:08
Nen-Y-Rotyttlunwz Pept 01857 pg/ml 04/23/24 04:16
Albumin 2.7 g/dl (3.5-5.0) L 04/23/24 04:16
Physical Exam
-
Vital Signs:
Vital Signs
Temp Pulse Resp BP Pulse Ox
97.4 F 83 18 80/58 97
04/25/24 11:32 04/25/24 11:32 04/25/24 11:32 04/25/24 11:32 04/25/24 11:32
Cardiovascular:: Regular rate and rhythm
Respiratory:: Bilateral: Coarse
Lung Excursion:: Normal
Abdomen:: Nontender and Soft
Bowel Sounds:: Normal
Extremity Edema:: None: Bilateral:
[2024-04-25] MEDS: ProAmatine 20 MG PO ×2 (13:14→18:08)
--- NOTE | 2024-04-25 14:15 | W.PN.HOSP.TC ---
Today's Communication/Plan
-
apprec all consultants
consider changing zosyn to oral augmentin
renal function and BP limiting discharge
Assessment / Plan
Assessment / Plan
pt is a 79 year old male
Nontraumatic right humerus fracture likely due to mets and pathologic fracture--Eliquis restarted, s/p reverse total shoulder replacement POD 4 --apprec ortho--pt BP runs low at baseline--started midodrine- increase, stop flomax
leukocytosis--CXR with bilateral LL pna--started on zosyn
acute kidney injury--worsening, up to 2.4(baseline is 1.0)--failed voiding trial--cont londono cath at d/c and follow up with urology in office--apprec cards/renal--not dialysis candidate
chronic hypotension--Blood pressure has been chronically low--start midodrine-- AM cortisol adequate, no need for cosyntropin STIM test--may reconsider--consider florinef
Metastatic hepatocellular carcinoma---Metastasis to bone, likely causing pathologic humerus fracture--Currently on checkpoint inhibitor therapy with nivolumab/ipilimumab--apprec onc
Severe aortic stenosis/Chronic heart failure with reduced ejection fraction--lisinopril and lasix on hold--carvedilol holding since BP low--apprec cards
Paroxysmal atrial fibrillation--Home medications include carvedilol and Eliquis--on hold
Anemia of chronic disease--Hemoglobin baseline near 8.5, has been at baseline while here--Secondary to multiple chronic ailments including hepatic cellular carcinoma
Hyperlipidemia-continue Zetia. Hold statin with elevated LFTs
Enlarged prostate with urinary retention--keep londono cath at d/c--stop Flomax and cont finasteride--follow up with urology at d/c
Anxiety and depression--continue fluoxetine and Remeron
DVT prophylaxis: Start SCDs
CODE STATUS: DNR
Anticipated Discharge: > 48 hours
Subjective/Interval History
-
Date of Service: April 25, 2024
pt without c/o--creat worse and BP still low
Objective Data
-
Labs:
Laboratory Results
04/25/24
09:08
WBC 21.0 H
Hgb 8.4 L
Hct 24.6 L
Plt Count 280
Sodium 133 L
Potassium 5.1
Chloride 99
Carbon Dioxide 18 L
BUN 76 H
Creatinine 2.4 H
Glucose 91
Calcium 7.0 L
Vital Signs:
max temp for 24 hours
04/25/24
03:00
Temp 98.2 F
Vital Signs
Temp Pulse Resp BP Pulse Ox
97.4 F 88 18 81/58 97
04/25/24 11:32 04/25/24 13:14 04/25/24 11:32 04/25/24 13:14 04/25/24 11:32
I&O
04/24/24 04/25/24 04/26/24
06:59 06:59 06:59
Intake Total 1120 / 1120
Output Total 900 / 900 550 / 550
Balance -900 / -900 570 / 570
Review of Systems
-
All other systems: Reviewed and negative
Physical Exam
-
General: Well Developed, Well Nourished and No Apparent Distress
HEENT: Normocephalic and Atraumatic
Respiratory: Clear to Auscultation; Negative Wheezes or Rhonchi
Cardiac: Regular Rhythm and S1/S2; Negative Murmur
GI: Soft, Nontender, Nondistended and Normal Bowel Sounds
Musculoskeletal: No Clubbing, No Cyanosis, No Edema and Other (right shoulder in sling post op)
Neuro: Awake and Alert
Psych: Calm
[2024-04-25] MEDS: FLEXBUMIN 100 IV ×2 (16:06→22:01)
[2024-04-25] MEDS: FIBERCON 625 MG PO (18:08)
[2024-04-25] MEDS: REMERON 7.5 MG PO (20:55)
[2024-04-25] MEDS: TYLENOL 1000 MG PO (20:55)
[2024-04-26] VITALS (12 sets, daily range): BP systolic 77–91; BP diastolic 50–59; BMI 25.0
[2024-04-26] MEDS: ZOSYN 50 IV ×5 (00:14→23:41)
--- NOTE | 2024-04-26 03:00 | PTCARENOTE ---
Pt's londono @03:00 only had 100ml and with previous shift, 250ml with dark/ tea colored urine. Pt has poor oral intake. RN reached out to DERRICK BOAT CAPTAIN- ordered 500ml of NSS. Pt is resting comfortably w/ call guy within reach.
[2024-04-26] MEDS: NSS 500 IV (04:03)
[2024-04-26] MEDS: FLEXBUMIN 100 IV ×3 (06:11→21:59)
[2024-04-26] MEDS: ZETIA 10 MG PO (08:20)
[2024-04-26] MEDS: PACERONE 200 MG PO (08:21)
[2024-04-26] MEDS: VITAMIN C 500 MG PO (08:21)
[2024-04-26] MEDS: PROSCAR 5 MG PO (08:21)
[2024-04-26] MEDS: ProAmatine 20 MG PO ×3 (08:21→19:44)
[2024-04-26] MEDS: ELIQUIS 5 MG PO ×2 (08:21→19:44)
[2024-04-26] MEDS: VITAMIN B-12 500 MCG PO (08:21)
[2024-04-26] MEDS: LIDOCAINE 4% PATCH 1 PATCH TOPICAL (08:22)
[2024-04-26 09:06] LABS: Hematocrit 21.6 % (39.0-52.0); Hemoglobin 7.5 g/dL (13.0-18.0); Mean Corp Hgb Conc. 34.7 g/dL (33.0-37.0); Mean Corpuscular Hgb 28.3 pg (27.0-31.0); Mean Corpuscular Volume 81.5 fL (80.0-94.0); Mean Platelet Volume 10.3 fL (7.4-10.4); Platelet Count 252 10^3/uL (130-400); Red Blood Cell Count 2.65 10^6/uL (4.70-6.10); Red Cell Dist. Width 17.5 % (11.5-14.5); White Blood Cell Count 16.5 10^3/uL (4.8-10.8)
--- NOTE | 2024-04-26 10:25 | W.PN.NEPH.PH ---
Today's Communication / Plan
-
await labs
Assessment/Plan
-
Assessment
FILOMENA
Right reverse shoulder replacement
Hypertension
Severe aortic stenosis
Nonischemic heart failure reduced ejection fraction
Paroxysmal atrial fibrillation
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
Anemia
Plan
Maintain Angel catheter
Highly suspect that his renal failure is due to poor perfusion given his chronic hypotension.
Midodrine will be continued and has been increased to 20mg QID
He does not appear to be in decompensated heart failure given that he is laying supine without supplemental O2 without symptoms.
Encourage p.o. intake, add supplements
Follow BMP
IV albumin today
IV fluids
04/25 : Discussed with and patient at length. They agree that dialysis would likely not be their wish. I discussed with him that quality of life would be worse and that this would have no effect on his cancer which is terminal. Also with his
severe aortic stenosis and reduced heart failure ejection fraction dialysis would likely be also very difficult. I would not recommend dialysis and they are in agreement
-
-
Date of Service: April 26, 2024
CC / HPI / ROS
-
Chief Complaint:
FILOMENA
History of Present Illness:
FILOMENA/Cr worse to 2.4 yesterday
Labs pending today
remains hypotense on midodrine
O2 sat good on RA
hgb low drifting down to 7.5
Review of Systems:
no CP/SOB
Complains of inability to walk due to left leg
Labs
-
Labs:
WBC 16.5 10^3/uL (4.8-10.8) H 04/26/24 08:41
RBC 2.65 10^6/uL (4.70-6.10) L 04/26/24 08:41
Hgb 7.5 g/dL (13.0-18.0) L 04/26/24 08:41
Hct 21.6 % (39.0-52.0) L 04/26/24 08:41
Plt Count 252 10^3/uL (130-400) 04/26/24 08:41
eGFR 27.11 04/25/24 09:08
Cov-O-Whjmmngdrsl Pept 60849 pg/ml 04/23/24 04:16
Albumin 2.7 g/dl (3.5-5.0) L 04/23/24 04:16
Physical Exam
-
Vital Signs:
Vital Signs
Temp Pulse Resp BP Pulse Ox
97.5 F 78 20 85/58 97
04/26/24 08:29 04/26/24 08:29 04/26/24 08:29 04/26/24 08:29 04/26/24 08:29
Cardiovascular:: Regular rate and rhythm
Respiratory:: Bilateral: Coarse
Lung Excursion:: Normal
Abdomen:: Nontender and Soft
Bowel Sounds:: Normal
Extremity Edema:: +3: Bilateral:
[2024-04-26 10:38] LABS: Blood Urea Nitrogen 87 mg/dl (9-20); Calcium 7.5 mg/dl (8.4-10.2); Carbon Dioxide 13 mmol/L (22-30); Chloride 98 mmol/L (98-107); Estimated Creatinine Clearance 25 ml/min; Glucose 93 mg/dl (70-99); Potassium 5.1 mmol/L (3.5-5.1); Sodium 130 mmol/L (135-145); eGFR 23.54
[2024-04-26] MEDS: SODIUM BICARBONATE 650 MG PO ×2 (15:16→21:49)
[2024-04-26] MEDS: SODIUM BICARBONATE 1150 MEQ IV (15:17)
--- NOTE | 2024-04-26 15:41 | W.PN.HOSP.TC ---
Today's Communication/Plan
-
apprec renal
cont current management
added abdominal binder
Assessment / Plan
Assessment / Plan
pt is a 79 year old male
Nontraumatic right humerus fracture likely due to mets and pathologic fracture--Eliquis restarted, s/p reverse total shoulder replacement on 04/21/24--apprec ortho--pt BP runs low at baseline--started midodrine with increased dose-- stop
flomax--added abdominal binder, support socks by renal--IV albumin, IVF
leukocytosis--CXR with bilateral LL pna--started on zosyn
acute kidney injury--worsening, up to 2.7 (baseline is 1.0)--failed voiding trial--cont londono cath at d/c and follow up with urology in office--apprec cards/renal--not dialysis candidate
chronic hypotension--Blood pressure has been chronically low--start midodrine-- AM cortisol adequate, no need for cosyntropin STIM test--may reconsider--consider florinef
Metastatic hepatocellular carcinoma---Metastasis to bone, likely causing pathologic humerus fracture--Currently on checkpoint inhibitor therapy with nivolumab/ipilimumab--apprec onc
Severe aortic stenosis/Chronic heart failure with reduced ejection fraction--lisinopril and lasix on hold--carvedilol holding since BP low--apprec cards
Paroxysmal atrial fibrillation--Home medications include carvedilol and Eliquis--on hold
Anemia of chronic disease--Hemoglobin baseline near 8.5, has been at baseline while here--Secondary to multiple chronic ailments including hepatic cellular carcinoma
Hyperlipidemia-continue Zetia. Hold statin with elevated LFTs
Enlarged prostate with urinary retention--keep londono cath at d/c--stop Flomax and cont finasteride--follow up with urology at d/c
Anxiety and depression--continue fluoxetine and Remeron
DVT prophylaxis: Start SCDs
CODE STATUS: DNR
if renal function and BP do not improve, prognosis is guarded at best
Anticipated Discharge: > 48 hours
Subjective/Interval History
-
Date of Service: April 26, 2024
pt without c/o--labs worsening
Objective Data
-
Labs:
Laboratory Results
04/26/24
08:41
WBC 16.5 H
Hgb 7.5 L
Hct 21.6 L
Plt Count 252
Sodium 130 L
Potassium 5.1
Chloride 98
Carbon Dioxide 13 L*
BUN 87 H
Creatinine 2.7 H
Glucose 93
Calcium 7.5 L
Vital Signs:
max temp for 24 hours
04/26/24
06:11
Temp 97.8 F
Vital Signs
Temp Pulse Resp BP Pulse Ox
97.7 F 83 18 82/58 99
04/26/24 13:47 04/26/24 13:53 04/26/24 13:47 04/26/24 13:53 04/26/24 13:47
I&O
04/25/24 04/26/24 04/27/24
06:59 06:59 06:59
Intake Total 1120 / 1120 1040 / 1040
Output Total 550 / 550 600 / 600
Balance 570 / 570 440 / 440
Review of Systems
-
All other systems: Reviewed and negative
Physical Exam
-
General: Appears Chronically Ill
HEENT: Normocephalic and Atraumatic
Respiratory: Clear to Auscultation; Negative Wheezes, Rhonchi or Crackles
Cardiac: Regular Rhythm, S1/S2 and Murmur
GI: Soft, Nontender, Nondistended and Normal Bowel Sounds
Musculoskeletal: No Clubbing, No Cyanosis, No Edema and Other (right arm in sling)
Neuro: Awake and Alert
Psych: Calm
[2024-04-26] MEDS: FIBERCON 625 MG PO (17:00)
[2024-04-26] MEDS: REMERON 7.5 MG PO (21:49)
[2024-04-26] MEDS: TYLENOL 1000 MG PO (21:49)
[2024-04-27] VITALS (8 sets, daily range): BP systolic 80–96; BP diastolic 49–58; BMI 26.1
[2024-04-27] MEDS: ProAmatine 20 MG PO ×3 (03:47→14:10)
--- NOTE | 2024-04-27 04:15 | PTCARENOTE ---
Pt complained of SOB sating 97% on room air with 28 resp. RN applied 2L for comfort sating 98 on 2L NC with 24 resp. RN notified RUG BACKING STENCILER- ordered Xopenex treatment. Pt is resting comfortably w/ call guy within reach.
[2024-04-27] MEDS: XOPENEX 1.25 MG INHALANT SOLUTION INH (04:51)
[2024-04-27] MEDS: ZOSYN 50 IV ×3 (05:17→17:18)
[2024-04-27] MEDS: FLEXBUMIN 100 IV (05:17)
[2024-04-27] MEDS: LIDOCAINE 4% PATCH 1 PATCH TOPICAL (07:52)
[2024-04-27] MEDS: ZETIA 10 MG PO (07:52)
[2024-04-27] MEDS: PACERONE 200 MG PO (07:54)
[2024-04-27] MEDS: PROSCAR 5 MG PO (07:54)
[2024-04-27] MEDS: ELIQUIS 5 MG PO (07:55)
[2024-04-27] MEDS: VITAMIN B-12 500 MCG PO (07:55)
[2024-04-27] MEDS: VITAMIN C 500 MG PO (07:55)
[2024-04-27] MEDS: SODIUM BICARBONATE 650 MG PO ×2 (07:58→16:29)
--- NOTE | 2024-04-27 08:31 | W.PN.HOSP.TC ---
Today's Communication/Plan
-
see A/P
Assessment / Plan
Assessment / Plan
A/P:
# Nontraumatic right humerus fracture likely due to mets and pathologic fracture
s/p reverse total shoulder replacement 04/21/24
apprec ortho
Eliquis restarted
# Orthostatic hypotension
# chronic hypotension
Blood pressure has been chronically low
started midodrine now at 20 mg Q6H
stopped flomax
added abdominal binder but pt did not tolerate well per RN, taken off
cont compression stocking
s/p IV albumin, IVF
AM cortisol adequate, no need for cosyntropin STIM test
appreciate renal input
# leukocytosis
CXR noted bilateral lower lobe pneumonia. Stable on the left. Progressed on the right.
started zosyn, cont
# acute kidney injury
# AGMA
SCr 2.7 from baseline 1.0
failed voiding trial, cont londono cath at d/c and follow up with urology in office
Cont sodium bicarb
Renal on board
# Metastatic hepatocellular carcinoma
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
Currently on checkpoint inhibitor therapy with nivolumab/ipilimumab
apprec onc
# Severe aortic stenosis
# Chronic heart failure with reduced ejection fraction
lisinopril and lasix on hold
carvedilol on hold with low BP
apprec cards
# Paroxysmal atrial fibrillation
Home medications include carvedilol and Eliquis
# Anemia of chronic disease
Hemoglobin baseline near 8.5
# Hyperlipidemia
Hold statin/zetia with elevated LFTs
# Enlarged prostate with urinary retention
keep londono cath at d/c
stopped Flomax and cont finasteride
follow up with urology at d/c
# Anxiety and depression
continue fluoxetine and Remeron
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
CODE STATUS: DNR
Dispo: PT recc SNF
Prognosis guarded due to clinical decompensation
update on the phone
DW RN
total time spent 51 min
Anticipated Discharge: > 48 hours
Subjective/Interval History
-
Date of Service: April 27, 2024
Objective Data
-
Labs:
Laboratory Results
04/27/24
06:00
WBC Pending
Hgb Pending
Hct Pending
Plt Count Pending
Sodium Pending
Potassium Pending
Chloride Pending
Carbon Dioxide Pending
BUN Pending
Creatinine Pending
Glucose Pending
Calcium Pending
Vital Signs:
Vital Signs
Temp Pulse Resp BP Pulse Ox
36.4 C 73 22 86/57 99
04/27/24 08:25 04/27/24 07:53 04/27/24 07:18 04/27/24 07:53 04/27/24 08:00
I&O
04/26/24 04/27/24 04/28/24
06:59 06:59 06:59
Intake Total 1040 / 1040 1740 / 1740
Output Total 600 / 600 350 / 350
Balance 440 / 440 1390 / 1390
Review of Systems
-
All other systems: Reviewed and negative
Physical Exam
-
General: Appears Chronically Ill
HEENT: Normocephalic and Atraumatic
Respiratory: Clear to Auscultation and Non Labored Respirations; Negative Wheezes, Rhonchi, Crackles or Accessory Resp Muscle Use
Cardiac: Regular Rhythm and S1/S2
GI: Soft, Nontender, Nondistended and Normal Bowel Sounds
Musculoskeletal: No Clubbing, No Cyanosis, Edema, Right Lower Extrem, Edema, Left Lower Extrem and Other (right arm in sling)
Neuro: Awake and Alert
Psych: Calm
Data Reviewed
-
Labs: Labs Reviewed by me and Discussed with Family
[2024-04-27 09:10] LABS: Hematocrit 22.7 % (39.0-52.0); Hemoglobin 7.7 g/dL (13.0-18.0); Mean Corp Hgb Conc. 33.9 g/dL (33.0-37.0); Mean Corpuscular Volume 82.5 fL (80.0-94.0); Mean Platelet Volume 10.4 fL (7.4-10.4); Platelet Count 270 10^3/uL (130-400); Red Blood Cell Count 2.75 10^6/uL (4.70-6.10); Red Cell Dist. Width 17.4 % (11.5-14.5); White Blood Cell Count 13.3 10^3/uL (4.8-10.8)
[2024-04-27 10:00] LABS: Blood Urea Nitrogen 102 mg/dl (9-20); Carbon Dioxide 13 mmol/L (22-30); Chloride 93 mmol/L (98-107); Glucose 78 mg/dl (70-99); Sodium 129 mmol/L (135-145)
[2024-04-27] MEDS: SODIUM BICARBONATE 1150 MEQ IV (10:04)
--- NOTE | 2024-04-27 10:11 | PTCARENOTE ---
pt stating 'hard to breathe' pulse ox 99% on room air. pt requested O2 for comfort. pt is on 1L O2.
[2024-04-27 10:28] LABS: Estimated Creatinine Clearance 22 ml/min; Potassium 6.2 mmol/L (3.5-5.1); eGFR 19.94
[2024-04-27] MEDS: VENTOLIN NEBULES 10 MG INH (11:13)
[2024-04-27 11:53] LABS: Glucose - Point of Care 117 mg/dl (70-99)
--- NOTE | 2024-04-27 12:15 | CM ---
Addendum entered by Stephanie Stevens 04/27/24 14:17:
CM received consult for Hospice. CM discussed with patient and , Hospice meeting scheduled for tomorrow at 9:[address] [facility].
Original Note:
Patient seen resting. , Saray, bedside. tearful, CM offered support to , will continue to follow for all discharge planning needs, will continue to be available to family.
Plan; SNF, when medically ready. Will need insurance auth.
[2024-04-27] MEDS: LOKELMA 10 GRAM PO (12:21)
[2024-04-27] MEDS: NOVOLIN R 0.1 UNITS IV (12:21)
[2024-04-27] MEDS: DEXTROSE 50% SYRINGE 25 GRAMS IV (12:21)
--- NOTE | 2024-04-27 12:35 | W.PN.CARDCBS ---
Addendum entered and electronically signed by Zeke Ventura MD 04/27/24 20:34:
Patient with increasing shortness of breath.
PMH/PSH/SH/FH: Reviewed
Allergies are none
Outpatient meds reviewed
current medications: Amiodarone 200 mg a day, carvedilol 3.125 twice daily on hold, Zetia on hold, Remeron, finasteride, apixaban 5 twice daily, midodrine 20 every 6, bicarbonate
proBNP greater than 27,000, sodium 129, potassium 5.4, bicarbonate 13, anion gap 102, creatinine 3.1, had been 2.7, hemoglobin 7.7
Chest x-ray with worsening CHF
Patient reports dyspnea, at bedside, blood pressure 80/50, pulse 86, afebrile, weight is 87.1 kg up 3.5 kg, some distress, diminished breath sounds in bases, AAS murmur, neck veins up, edema
Impression: See note below
Plan:
Prognosis very poor with acute renal failure, evidence of heart failure, aortic stenosis, metastatic hepatocellular cancer pathological fracture, refractory hypotension.
Dr. Perez has discussed with patient and , plan is to consult hospice which I think is appropriate. We will sign off, please call if questions.
Original Note:
Today's Communication / Plan
-
Lasix 40 mg IV x1 now
Check pro-BNP and portable CXR
52 minutes face to face, chart prep, placing orders, communicating with healthcare team
Impression / Plan
-
PCP: Dr. Vyas
Cardiology: Dr. Jessica Richards
Impression:
Admitted with weakness and right humerus fracture 04/13/24
Nonischemic cardiomyopathy EF 30% by echo 04/16/24
s/p Right reverse total shoulder arthroplasty for Pathologic right humeral fracture 04/21/2024
Hepatocellular carcinoma with osseous metastasis, on checkpoint inhibitors (Nivolumab/Ipilimumab)
Bilateral lower lobe pneumonia R>L
Severe
Acute on chronic HFrEF
Nonischemic cardiomyopathy, EF 30%
CAD with 60% stenosis of small second diagonal branch, medically managed 04/01/23
Paroxysmal atrial fibrillation
Chronic amiodarone therapy
Chronic Eliquis therapy
Hypertension
Hyperlipidemia
Elevated LFTs
Obstructive sleep apnea
Thyroid nodules
BPH
Former smoker
ECHO 12/04/2023: EF 40%, moderate MR, severe with peak/mean gradients 74/50 mmHg, TORIN 0.9 cm�, PAP 30 to 35 mmHg
ECHO 04/16/24: EF 30%, LV globally hypokinetic, dilated RV, severely dilated LA and dilated RA, at least moderate MR, severe with peak/mean gradient 70/41 mmHg, mild AI, mild TR, PAP 35 to 40 mmHg
Plan:
-Patient with increased LE edema, orthopnea and weight gain. Appears to be in acute HF, will give Lasix 40 mg IV now.
-Nephrology following and weekend notes reviewed. Patient is not a candidate for HD and patient's agreed on 04/26/24.
-Cre up to 3.1 and hyperkalemic on 04/27/24.
-EF 30% by echo 04/16/24
-Nonobstructive CAD by cath 04/01/23
-Patient with known severe and was not felt to be a TAVR candidate due to hepatocellular carcinoma
-Patient also with symptomatic orthostasis. Outpatient doses of Coreg and lisinopril have been held this admission. New to midodrine this admission and dose has been increased to 20 mg q 6 hours as of 04/26/24
HPI: 79-year-old male with PMH of HFrEF, paroxysmal A-fib on Eliquis, essential hypertension, metastatic SCC who presented to ED on 04/13/2004 with right pathologic humeral fracture. Cardiology was consulted due to low blood pressure and risk
stratification for planned surgical intervention.
Outpatient meds amiodarone, atorvastatin, carvedilol Eliquis, ezetimibe, furosemide 20 ipilimumab, lisinopril 20 mg a day, followed by, tamsulosin.
Progress Note - Supervisor Fabrication
Subjective
Date of Service: April 27, 2024
He is SOB and has orthopnea, all worse since last night
Objective
Labs:
04/27/24 08:43
Labs
Hgb 7.7 g/dL (13.0-18.0) L 04/27/24 08:43
Hct 22.7 % (39.0-52.0) L 04/27/24 08:43
Plt Count 270 10^3/uL (130-400) 04/27/24 08:43
PT 21.9 Sec (11.4-14.6) H 04/21/24 17:40
INR 1.93 04/21/24 17:40
APTT 40.5 Sec (23.4-35.0) H 04/21/24 17:40
Sodium 129 mmol/L (135-145) L 04/27/24 08:43
Potassium 6.2 mmol/L (3.5-5.1) H* 04/27/24 08:43
BUN 102 mg/dl (9-20) H* 04/27/24 08:43
Creatinine 3.1 mg/dL (0.7-1.3) H 04/27/24 08:43
Glucose 78 mg/dl (70-99) 04/27/24 08:43
Vital Signs and I&O:
Vital Signs
Temp Pulse Resp BP Pulse Ox
97.8 F 69 20 96/55 100
04/27/24 11:49 04/27/24 11:49 04/27/24 11:49 04/27/24 11:49 04/27/24 11:49
Vital Signs
Temp Pulse Resp BP Pulse Ox
97.8 F 69 20 96/55 100
04/27/24 11:49 04/27/24 11:49 04/27/24 11:49 04/27/24 11:49 04/27/24 11:49
Intake & Output
1004/26/24 04/27/24 04/28/24
06:59 06:59 06:59 06:59
Intake Total 1120 / 1120 1040 / 1040 1740 / 1740
Output Total 550 / 550 600 / 600 350 / 350
Balance 570 / 570 440 / 440 1390 / 1390
Physical Exam
Physical Exam
GEN: AAOx3
HEENT: mmm
LUNGS: Wearing oxygen at 1 L NC
CV: SR on tele
ABD: ND
EXT: +2-3 pitting B/L LE edema
NEURO: Gross non-focal
SKIN: No rash
--- NOTE | 2024-04-27 12:56 | WOUNDNOTE ---
WON RN NOTE: Followed up today via nurse Brenda who reports wound on sacrum starting to open up, foam recently changed. Patient not eating and not getting oob, turning schedule maintained, per nurse. Recommended to nurse to add alginate under foam if
needed for large drainage. Patient is Hospice appropriate per nurse and MD reports poor prognosis, family to decide if palliative care. Will follow as needed otherwise will sign off.
[2024-04-27 13:26] LABS: Glucose - Point of Care 171 mg/dl (70-99)
[2024-04-27] MEDS: LASIX 40 MG IV (14:10)
--- NOTE | 2024-04-27 14:15 | W.PN.NEPH.PH ---
Today's Communication / Plan
-
IV Lasix provided by cardiology
Patient appears to have ongoing cardiogenic shock
Prognosis is poor
There is very little that I have to offer
We can use Lokelma if repeat potassium remains high
Assessment/Plan
-
Assessment
FILOMENA
Right reverse shoulder replacement
Hypertension
Severe aortic stenosis
Nonischemic heart failure reduced ejection fraction
Paroxysmal atrial fibrillation
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
Anemia
Plan
Maintain Angel catheter
K remains elevated , remains hypotensive
Highly suspect that his renal failure is due to poor perfusion given his chronic hypotension.
Midodrine will be continued and has been increased to 20mg QID
He does not appear to be in decompensated heart failure given that he is laying supine without supplemental O2 without symptoms.
metabolic acidosis worsening: maintain sodium bicarbonate
Encourage p.o. intake, add supplements
Follow BMP
IV lasix given for weights up and clinical CHF
Hyperkalemia aggravated by worsening metabolic acidosis and renal failure
04/25 : Discussed with and patient at length. They agree that dialysis would likely not be their wish. I discussed with him that quality of life would be worse and that this would have no effect on his cancer which is terminal. Also with his
severe aortic stenosis and reduced heart failure ejection fraction dialysis would likely be also very difficult. I would not recommend dialysis and they are in agreement
-
-
Date of Service: April 27, 2024
CC / HPI / ROS
-
Chief Complaint:
FILOMENA
History of Present Illness:
FILOMENA/Cr worse to 3.1yesterday
hyperkalemia 6.2
remains hypotense on midodrine
O2 sat good on RA
hgb low drifting down to 7.5
Review of Systems:
no CP/SOB
Complains of inability to walk due to left leg
Labs
-
Labs:
WBC 13.3 10^3/uL (4.8-10.8) H 04/27/24 08:43
RBC 2.75 10^6/uL (4.70-6.10) L 04/27/24 08:43
Hgb 7.7 g/dL (13.0-18.0) L 04/27/24 08:43
Hct 22.7 % (39.0-52.0) L 04/27/24 08:43
Plt Count 270 10^3/uL (130-400) 04/27/24 08:43
Sodium 129 mmol/L (135-145) L 04/27/24 08:43
Chloride 93 mmol/L (98-107) L 04/27/24 08:43
Carbon Dioxide 13 mmol/L (22-30) L* 04/27/24 08:43
BUN 102 mg/dl (9-20) H* 04/27/24 08:43
Creatinine 3.1 mg/dL (0.7-1.3) H 04/27/24 08:43
eGFR 19.94 04/27/24 08:43
Glucose 78 mg/dl (70-99) 04/27/24 08:43
Calcium 7.0 mg/dl (8.4-10.2) L 04/27/24 08:43
Mpx-R-Rueclgwrmml Pept 53449 pg/ml 04/23/24 04:16
Albumin 2.7 g/dl (3.5-5.0) L 04/23/24 04:16
Physical Exam
-
Vital Signs:
Vital Signs
Temp Pulse Resp BP Pulse Ox
97.6 F 83 18 83/54 99
04/27/24 14:07 04/27/24 14:07 04/27/24 14:07 04/27/24 14:07 04/27/24 14:07
Cardiovascular:: Regular rate and rhythm
Respiratory:: Bilateral: Coarse
Lung Excursion:: Normal
Abdomen:: Soft
Bowel Sounds:: Normal
Extremity Edema:: +2: Bilateral:
Angel Catheter: Yes
[2024-04-27 14:44] LABS: Glucose - Point of Care 111 mg/dl (70-99)
[2024-04-27 16:08] LABS: Potassium 5.4 mmol/L (3.5-5.1)
--- NOTE | 2024-04-27 16:18 | W.PN.UPDATE ---
Update Note
Progress Note Update
Patient with severe clinical decompensation.
Met with at bedside again. Informed about his severe clinical decompensation.
Family will be discussing hospice with coordinator in the morning.
For now, no escalation of care.
We will try to arrange patient to be in a private room.
RN updated.
[2024-04-27 16:34] LABS: Glucose - Point of Care 110 mg/dl (70-99)
[2024-04-27 16:35] LABS: NT-proBNP > 27000 pg/ml
[2024-04-27] MEDS: FIBERCON 625 MG PO (17:18)
--- NOTE | 2024-04-27 18:16 | PTCARENOTE ---
pt refusing 1830 bedside glucose check as per protocol. aware.
--- NOTE | 2024-04-27 19:25 | PTCARENOTE ---
pt transferred to 2N. report given to RN. pt belongings sent with the pt.
--- NOTE | 2024-04-27 21:39 | W.PN.ONC2 ---
Today's Communication / Plan
-
Pt with multiple medical issues culminating in state of medical futility
Suggested home hospice.
Pt and amenable.
Impression
Impression
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
Pathologic fracture of surgical neck and proximal metaphysis of right humerus s/p Right reverse total shoulder arthroplasty 04/21, pathology pending
Severe aortic stenosis
HFrEF
hypotension -normal TSH, ATCH 04/08
FILOMENA
elevated Tbili, transaminitis
PAF on DOAC
LLE weakness, MRI L spine no cord compression
Plan
Plan
metastatic HCC on Nivolumab/Ipilimumab ([place]) s/p C1 04/09 so FILOMENA and hypotension unlikely related to immunotherapy
known osseous mets in L spine, left ischium/pubic ramus on PET 03/18 -MRI L-Spine no cord compression
PT/OT/nutrition
OH management per cardiology
post op R shoulder per ortho
monitor Elevated LFTs -T bili trending down
Subjective/Objective
Chief Complaint
Med Onc follow up of HCC, anemia
Subjective
Pt appears moribund. Hospitalized for two weeks without improvement. Well-known to me from outpt setting. acknowledges that pt not getting better.
Vital Signs:
Vital Signs
Temp Pulse Resp BP Pulse Ox
98.5 F 86 22 80/58 99
04/27/24 19:18 04/27/24 19:18 04/27/24 19:18 04/27/24 19:18 04/27/24 19:18
Lab Results:
Laboratory Data
WBC 13.3 10^3/uL (4.8-10.8) H 04/27/24 08:43
Hgb 7.7 g/dL (13.0-18.0) L 04/27/24 08:43
Plt Count 270 10^3/uL (130-400) 04/27/24 08:43
PT 21.9 Sec (11.4-14.6) H 04/21/24 17:40
INR 1.93 04/21/24 17:40
APTT 40.5 Sec (23.4-35.0) H 04/21/24 17:40
eGFR 19.94 04/27/24 08:43
Orders
Orders
Orders From Last 24 Hours
04/27/24 13:42
Case Management Consult ONCE
--- NOTE | 2024-04-27 22:07 | W.PN.UPDATE ---
Update Note
Progress Note Update
2200 PT does not want anymore poking and prodding. After discussion with pt and family in room, the wish to transition to comfort care. I mentioned that comfort care means stopping all preexisitng medications (cardiac, and antibiotics) and both
family and pt in agreement. He would just like to be comfortable. Hospice will see in am.
[2024-04-27] MEDS: SODIUM BICARBONATE PO (23:43)
[2024-04-27] MEDS: ELIQUIS PO (23:43)
[2024-04-27] MEDS: REMERON PO (23:43)
[2024-04-27] MEDS: ProAmatine PO (23:43)
[2024-04-27] MEDS: TYLENOL 1000 MG PO (23:45)
[2024-04-28] MEDS: ATIVAN 1 MG PO (03:15)
--- NOTE | 2024-04-28 04:53 | PTCARENOTE ---
Patient transferred from 4th floor at start of shift. Per patient - he doesn't want any more 'poking and prodding'. Per hospitalist note and patient's , patient and family to have discussion with hospice team tomorrow. Patient and patient's
family educated on comfort care measures. Patient stated he only wants to be comfortable. MARINE RADIO INSTALLER AND SERVICER notified. MARINE RADIO INSTALLER AND SERVICER came to bedside to speak to patient and family. Patient initiated on comfort measures.
[2024-04-28 07:10] VITALS: BP 69/45
--- NOTE | 2024-04-28 10:07 | PTCARENOTE ---
pt wakes to name states no pain. family at bedside. right arm in sling. pt inc of stool. am care done.
[2024-04-28] MEDS: MORPHINE SULFATE 1 MG IV ×4 (10:55→20:06)
[2024-04-28] MEDS: ATIVAN 0.5 MG IV ×2 (10:56→20:51)
--- NOTE | 2024-04-28 11:55 | HOSPNOTE ---
Met with family and discussed hospice. Family is in agreement to keep patient comfortable and hospice will continue to follow. Attending in agreement with comfort measures at this time.
--- NOTE | 2024-04-28 13:07 | CM ---
CM met with patient, son, , and Hospice Nurse for Hospice meeting. Family in agreement to keep patient comfortable. Referral to Hospice placed in [facility]. CM will continue to follow for all discharge planning needs.
Plan; Hospice.
--- NOTE | 2024-04-28 13:22 | W.PN.HOSP.TC ---
Today's Communication/Plan
-
cont comfort measures
Assessment / Plan
Assessment / Plan
A/P:
# Nontraumatic right humerus fracture likely due to mets and pathologic fracture
s/p reverse total shoulder replacement 04/21/24
apprec ortho
# Orthostatic hypotension
# chronic hypotension
Blood pressure has been chronically low
Pt has been transitioned to comfort measure, stopped all therapeutic meds
# leukocytosis
CXR noted bilateral lower lobe pneumonia.
was started with zosyn, now stopped with comfort measures
# acute kidney injury
# AGMA
SCr 2.7 from baseline 1.0
failed voiding trial
Cont comfort measures
# Metastatic hepatocellular carcinoma
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
Cont comfort measures
# Severe aortic stenosis
# Chronic heart failure with reduced ejection fraction
# Paroxysmal atrial fibrillation
# Anemia of chronic disease
# Hyperlipidemia
# Enlarged prostate with urinary retention
# Anxiety and depression
DVT prophylaxis: no need
CODE STATUS: DNR
Cont comfort measures
d/w hospice liaison
d/w , son and DIL at bedside
Anticipated Discharge: Within 24 hours
Subjective/Interval History
-
Date of Service: April 28, 2024
Objective Data
-
Vital Signs:
Vital Signs
Temp Pulse Resp BP Pulse Ox
35.8 C L 72 16 69/45 100
04/28/24 07:10 04/28/24 07:10 04/28/24 07:10 04/28/24 07:10 04/28/24 07:10
I&O
04/27/24 04/28/24 04/29/24
06:59 06:59 06:59
Intake Total 1740 / 1740 480 / 480
Output Total 350 / 350 400 / 400 200 / 200
Balance 1390 / 1390 80 / 80 -200 / -200
Review of Systems
-
Unable to obtain full review of systems at this time due to: Acuity
Physical Exam
-
General: Appears Chronically Ill
Respiratory: Non Labored Respirations; Negative Accessory Resp Muscle Use
Musculoskeletal: Edema, Right Lower Extrem and Edema, Left Lower Extrem
Neuro: Negative Awake
Psych: Calm; Negative Intact Judgement/Insight
[2024-04-28 19:02] VITALS: BP 93/60
[2024-04-28] MEDS: NSS (PRESERVATIVE FREE) 0.25 ML IV (20:51)
[2024-04-29] MEDS: MORPHINE SULFATE 1 MG IV ×2 (04:22→10:59)
[2024-04-29 07:10] VITALS: BP 75/48
[2024-04-29] MEDS: ATIVAN 0.5 MG IV ×4 (07:37→20:10)
[2024-04-29] MEDS: NSS (PRESERVATIVE FREE) 0.125 ML IV ×2 (07:41→10:58)
--- NOTE | 2024-04-29 12:11 | W.PN.HOSP.TC ---
Today's Communication/Plan
-
see A/P
Assessment / Plan
Assessment / Plan
A/P:
# Clinical deconditioning
Cont IV Morphine, start morphine drip
cont IV Ativan
add IV Haldol PRN for severe agitation
# Nontraumatic right humerus fracture likely due to mets and pathologic fracture
s/p reverse total shoulder replacement 04/21/24
apprec ortho
# Orthostatic hypotension
# Chronic hypotension
Blood pressure has been chronically low
Pt has been transitioned to comfort measure, stopped all therapeutic meds
# leukocytosis
CXR noted bilateral lower lobe pneumonia.
was on zosyn, stopped with comfort measures
# acute kidney injury
# AGMA
Last SCr 2.7 from baseline 1.0
failed voiding trial
Cont londono now for comfort measures
# Metastatic hepatocellular carcinoma
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
Cont comfort measures
# Severe aortic stenosis
# Chronic heart failure with reduced ejection fraction
# Paroxysmal atrial fibrillation
# Anemia of chronic disease
# Hyperlipidemia
# Enlarged prostate with urinary retention
# Anxiety and depression
DVT prophylaxis: no need
CODE STATUS: DNR
Cont comfort measures
d/w fuels engineer
d/w RN
d/w , son and daughter at bedside. Provided emotional support
Anticipated Discharge: Within 24 hours
Subjective/Interval History
-
Date of Service: April 29, 2024
Objective Data
-
Vital Signs:
Vital Signs
Temp Pulse Resp BP Pulse Ox
36.3 C 75 16 75/48 91
04/29/24 07:10 04/29/24 07:10 04/29/24 07:10 04/29/24 07:10 04/29/24 08:00
I&O
04/28/24 04/29/24 04/30/24
06:59 06:59 06:59
Intake Total 480 / 480
Output Total 400 / 400 700 / 700
Balance 80 / 80 -700 / -700
Review of Systems
-
Unable to obtain full review of systems at this time due to: Acuity
Physical Exam
-
General: Appears Chronically Ill and Other (actively dying)
Neuro: Negative Awake
Psych: Calm; Negative Intact Judgement/Insight
[2024-04-29] MEDS: MORPHINE 100 IV (13:09)
[2024-04-29] MEDS: NSS (PRESERVATIVE FREE) 0.25 ML IV ×2 (13:13→20:09)
[2024-04-29] MEDS: MORPHINE SULFATE 2 MG IV ×2 (13:14→20:10)
[2024-04-29] MEDS: ROBINUL 0.2 MG IV (13:14)
--- NOTE | 2024-04-29 13:17 | HOSPNOTE ---
Met with family and the attending and the attending and the attending feels patient is becoming imminent. Patient will remain comfort and will start a morphine drip per protocol. Will continue to follow and support.
[2024-04-29 19:30] VITALS: BP 81/50
[2024-04-30] MEDS: MORPHINE SULFATE 2 MG IV ×5 (02:31→14:17)
[2024-04-30] MEDS: ATIVAN 0.5 MG IV ×2 (02:31→09:13)
[2024-04-30] MEDS: NSS (PRESERVATIVE FREE) 0.25 ML IV (02:31)
[2024-04-30 07:10] VITALS: BP 76/53
[2024-04-30] MEDS: NSS (PRESERVATIVE FREE) 10 ML IV (09:14)
[2024-04-30] MEDS: HALDOL 1 MG IV ×2 (09:48→14:32)
--- NOTE | 2024-04-30 10:44 | W.PN.HOSP.TC ---
Today's Communication/Plan
-
see A/P
Assessment / Plan
Assessment / Plan
A/P:
# Severe clinical deconditioning
Cont IV Morphine with morphine drip
cont IV Ativan
added IV Haldol PRN for severe agitation
# Nontraumatic right humerus fracture likely due to mets and pathologic fracture
s/p reverse total shoulder replacement 04/21/24
# Orthostatic hypotension
# Chronic hypotension
Blood pressure has been chronically low
Pt has been transitioned to comfort measure, stopped all therapeutic meds
# leukocytosis
CXR noted bilateral lower lobe pneumonia.
was on zosyn, stopped with comfort measures
# acute kidney injury
# AGMA
Last SCr 2.7 from baseline 1.0
failed voiding trial
Cont londono now for comfort measures
# Metastatic hepatocellular carcinoma
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
Cont comfort measures
# Severe aortic stenosis
# Chronic heart failure with reduced ejection fraction
# Paroxysmal atrial fibrillation
# Anemia of chronic disease
# Hyperlipidemia
# Enlarged prostate with urinary retention
# Anxiety and depression
DVT prophylaxis: no need
CODE STATUS: DNR
Cont comfort measures
d/w and daughter at bedside. Provided emotional support
Anticipated Discharge: Within 24 hours
Subjective/Interval History
-
Date of Service: April 30, 2024
Objective Data
-
Vital Signs:
Vital Signs
Temp Pulse Resp BP Pulse Ox
36.6 C 79 14 76/53 99
04/30/24 07:10 04/30/24 07:10 04/30/24 07:10 04/30/24 07:10 04/30/24 07:10
I&O
04/29/24 04/30/24 05/01/24
06:59 06:59 06:59
Output Total 700 / 700 1250 / 1250
Balance -700 / -700 -1250 / -1250
Review of Systems
-
Unable to obtain full review of systems at this time due to: Acuity
Physical Exam
-
General: Appears Chronically Ill and Other (actively dying)
Neuro: Negative Awake
Psych: Calm; Negative Intact Judgement/Insight
--- NOTE | 2024-04-30 13:44 | HOSPNOTE ---
Patient is unresponsive at this time, patient was washed, repositioned and mouth care performed. Emotional support provided to family. Patient remains on comfort. Will continue to follow.
[2024-04-30] MEDS: BENADRYL 25 MG IV ×2 (14:18→19:40)
[2024-04-30 19:02] VITALS: BP 82/53
[2024-05-01] MEDS: BENADRYL 25 MG IV ×3 (06:25→19:32)
[2024-05-01 07:10] VITALS: BP 75/49
[2024-05-01] MEDS: ATIVAN 1 MG PO (08:11)
[2024-05-01] MEDS: MORPHINE SULFATE 2 MG IV ×3 (08:11→19:32)
[2024-05-01] MEDS: MORPHINE 100 IV (09:06)
--- NOTE | 2024-05-01 10:54 | CM ---
Patient continues on Hospice Service.
CM available for support/needs
--- NOTE | 2024-05-01 11:14 | W.PN.HOSP.TC ---
Today's Communication/Plan
-
see A/P
Assessment / Plan
Assessment / Plan
A/P:
# Severe clinical deconditioning
Cont IV Morphine with morphine drip
cont IV Ativan
added IV Haldol PRN for severe agitation
IV Benadryl for skin itchiness
# Nontraumatic right humerus fracture likely due to mets and pathologic fracture
s/p reverse total shoulder replacement 04/21/24
# Orthostatic hypotension
# Chronic hypotension
Blood pressure has been chronically low
Pt has been transitioned to comfort measure, stopped all therapeutic meds
# leukocytosis
CXR noted bilateral lower lobe pneumonia.
was on zosyn, stopped with comfort measures
# acute kidney injury
# AGMA
Last SCr 2.7 from baseline 1.0
failed voiding trial
Cont londono now for comfort measures
# Metastatic hepatocellular carcinoma
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
Cont comfort measures
# Severe aortic stenosis
# Chronic heart failure with reduced ejection fraction
# Paroxysmal atrial fibrillation
# Anemia of chronic disease
# Hyperlipidemia
# Enlarged prostate with urinary retention
# Anxiety and depression
DVT prophylaxis: no need
CODE STATUS: DNR
Cont comfort measures
d/w and daughter at bedside. Provided emotional support
Anticipated Discharge: 24 - 48 hours
Subjective/Interval History
-
Date of Service: May 01, 2024
Objective Data
-
Vital Signs:
Vital Signs
Temp Pulse Resp BP Pulse Ox
36.8 C 79 8 75/49 90
05/01/24 07:10 05/01/24 07:10 05/01/24 07:10 05/01/24 07:10 05/01/24 07:10
I&O
04/30/24 05/01/24 05/02/24
06:59 06:59 06:59
Intake Total 0 / 0
Output Total 1250 / 1250 650 / 650
Balance -1250 / -1250 -650 / -650
Review of Systems
-
Unable to obtain full review of systems at this time due to: Acuity
Physical Exam
-
General: Appears Chronically Ill and Other (actively dying)
Neuro: Negative Awake
Psych: Calm; Negative Intact Judgement/Insight
[2024-05-01] MEDS: ATIVAN 0.5 MG IV ×2 (13:10→19:32)
[2024-05-01] MEDS: NSS (PRESERVATIVE FREE) 0.25 ML IV ×2 (13:10→19:33)
--- NOTE | 2024-05-01 13:29 | HOSPNOTE ---
Patient was washed and repositioned. Patient is on a morphine drip and was given ativan for agitation. Family at bedside and emotional support provided.
[2024-05-01 23:21] VITALS: BP 75/50
[2024-05-02] MEDS: MORPHINE SULFATE 2 MG IV ×6 (00:29→23:11)
[2024-05-02] MEDS: BENADRYL 25 MG IV ×4 (03:47→19:49)
[2024-05-02] MEDS: ROBINUL 0.2 MG IV ×3 (05:47→19:50)
[2024-05-02 07:15] VITALS: BP 71/49
--- NOTE | 2024-05-02 11:42 | W.PN.HOSP.TC ---
Today's Communication/Plan
-
see A/P
Assessment / Plan
Assessment / Plan
A/P:
# Severe clinical deconditioning
Cont with morphine drip
cont IV Ativan, IV Haldol PRN for agitation
IV Benadryl for skin itchiness
# Nontraumatic right humerus fracture likely due to mets and pathologic fracture
s/p reverse total shoulder replacement 04/21/24
# Orthostatic hypotension
# Chronic hypotension
Blood pressure has been chronically low
Pt has been transitioned to comfort measure, stopped all therapeutic meds
# leukocytosis
CXR noted bilateral lower lobe pneumonia.
was on zosyn, stopped with comfort measures
# acute kidney injury
# AGMA
Last SCr 2.7 from baseline 1.0
failed voiding trial
Cont londono now for comfort measures
# Metastatic hepatocellular carcinoma
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
Cont comfort measures
# Severe aortic stenosis
# Chronic heart failure with reduced ejection fraction
# Paroxysmal atrial fibrillation
# Anemia of chronic disease
# Hyperlipidemia
# Enlarged prostate with urinary retention
# Anxiety and depression
DVT prophylaxis: no need
CODE STATUS: DNR
Cont comfort measures
d/w , daughter and 2 sons at bedside. Provided emotional support
Anticipated Discharge: Within 24 hours
Subjective/Interval History
-
Date of Service: May 02, 2024
Objective Data
-
Vital Signs:
Vital Signs
Temp Pulse Resp BP Pulse Ox
36.6 C 78 12 71/49 93
05/02/24 07:15 05/02/24 07:15 05/02/24 07:15 05/02/24 07:15 05/02/24 07:15
I&O
10/18/24 10/19/24 10/20/24
06:59 06:59 06:59
Intake Total 0 / 0 0 / 0
Output Total 650 / 650 325 / 325
Balance -650 / -650 -325 / -325
Review of Systems
-
Unable to obtain full review of systems at this time due to: Acuity
Physical Exam
-
General: Appears Chronically Ill and Other (actively dying)
Neuro: Negative Awake
Psych: Calm; Negative Intact Judgement/Insight
--- NOTE | 2024-05-02 13:38 | CM ---
Patient seen at bedside with family members present. patient known to this CM from earlier in patient stay. Emotional supports offered and CM to follow for discharge planning needs.
Plan; hospice
[2024-05-02 19:05] VITALS: BP 74/37
[2024-05-02] MEDS: NSS (PRESERVATIVE FREE) 0.25 ML IV (19:50)
[2024-05-02] MEDS: ATIVAN 0.5 MG IV (19:50)
[2024-05-03] MEDS: ROBINUL 0.2 MG IV (03:20)
[2024-05-03] MEDS: BENADRYL 25 MG IV (03:24)
[2024-05-03] MEDS: MORPHINE SULFATE 2 MG IV ×3 (03:25→12:03)
[2024-05-03] MEDS: MORPHINE 100 IV (06:57)
[2024-05-03 07:55] VITALS: BP 72/44
--- NOTE | 2024-05-03 11:19 | W.PN.HOSP.TC ---
Addendum entered and electronically signed by Ana Tirado MD 05/03/24 13:45:
total DC time 40 min
Original Note:
Today's Communication/Plan
-
see A/P
Assessment / Plan
Assessment / Plan
A/P:
# Severe clinical deconditioning
Cont with morphine drip
cont IV Ativan, IV Haldol PRN for agitation
IV Benadryl for skin itchiness
# Nontraumatic right humerus fracture likely due to mets and pathologic fracture
s/p reverse total shoulder replacement 04/21/24
# Orthostatic hypotension
# Chronic hypotension
Blood pressure has been chronically low
Pt has been transitioned to comfort measure, stopped all therapeutic meds
# leukocytosis
CXR noted bilateral lower lobe pneumonia.
was on zosyn, stopped with comfort measures
# acute kidney injury
# AGMA
Last SCr 2.7 from baseline 1.0
failed voiding trial
Cont londono now for comfort measures
# Metastatic hepatocellular carcinoma
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
Cont comfort measures
# Severe aortic stenosis
# Chronic heart failure with reduced ejection fraction
# Paroxysmal atrial fibrillation
# Anemia of chronic disease
# Hyperlipidemia
# Enlarged prostate with urinary retention
# Anxiety and depression
DVT prophylaxis: no need
CODE STATUS: DNR
Cont comfort measures
d/w , daughter and son at bedside. Provided emotional support
Anticipated Discharge: Within 24 hours
Subjective/Interval History
-
Date of Service: May 03, 2024
Objective Data
-
Vital Signs:
Vital Signs
Temp Pulse Resp BP Pulse Ox
36.8 C 80 22 72/44 79
05/03/24 07:55 05/03/24 07:55 05/03/24 07:55 05/03/24 07:55 05/03/24 07:55
I&O
05/02/24 05/03/24 05/04/24
06:59 06:59 06:59
Intake Total 0 / 0
Output Total 325 / 325 125 / 125
Balance -325 / -325 -125 / -125
Review of Systems
-
Unable to obtain full review of systems at this time due to: Acuity
Physical Exam
-
General: Appears Chronically Ill and Other (actively dying)
Neuro: Negative Awake
Psych: Calm; Negative Intact Judgement/Insight
Data Reviewed
-
Labs: Labs Reviewed by me and Discussed with Family
--- NOTE | 2024-05-03 13:30 | W.PN.DEATH ---
Pronouncement of
-
Called to see patient to pronounce.
No spontaneous heart tones or respirations noted.
Patient not responsive to verbal stimuli.
Patient is pronounced .
Time of : 13:07
Date of : 05/03/24
Family Notified: Yes (family at bedside )
--- NOTE | 2024-05-03 13:39 | W.DCSUMMARY ---
Discharge Summary
Discharge Data
Date of Admission: 04/13/24
Date of Discharge: 05/03/24
-
Pending Results: No
Hospital Course
Principal Diagnosis:
Nontraumatic right humerus fracture likely due to mets and pathologic fracture
Acute kidney injury with anion gap metabolic acidosis
Clinical decompensation with multiorgan failure
Chronic Diagnoses:�
Orthostatic hypotension with chronic hypotension
Metastatic hepatocellular carcinoma
Severe aortic stenosis
Chronic heart failure with reduced ejection fraction
Paroxysmal atrial fibrillation
Anemia of chronic disease
Hyperlipidemia
Enlarged prostate with urinary retention
Anxiety and depression
Consultations:�
Orthopedic
Oncology
Nephrology
Cardiology
Procedures:�
reverse total shoulder replacement by Ortho on 04/21/24
Clinical course:�
This is a 79-year-old male, who is chronically ill with past medical history as stated above, who presented with nontraumatic right humerus fracture likely due to metastases and pathologic fracture from metastatic hepatocellular carcinoma.
He underwent total shoulder replacement on 04/21/2024 by orthopedic.
He was suffering from severe orthostatic hypotension during his hospital course.
He also developed acute kidney injury with metabolic acidosis. His last creatinine that was checked was at 2.7 (from baseline 1.0).
Due to severe deconditioning/decompensation, goals of care was discussed.
He was transitioned to comfort measures during his hospital stay, and was started with morphine drip for pain control/comfort measures.
He peacefully with his family at his bedside on 05/03/2024.
He was pronounced at 1:07 PM.
Discharge Plan
-
Patient Disposition:
Date/Time
Date/Time: 05/03/24 13:10
Discharge Date and Time
Print Language: BELARUSIAN
--- NOTE | 2024-05-03 13:59 | CM ---
CM reviewed chart. Patient .
== END 2024-05-03 13:07 | disposition expired | DRG 483 ==
LOC: 2 NORTH 13:57
PROVIDERS: Internal Medicine; Nurse Practitioner Family; Orthopaedic Surgery Hand Surgery; Student in an Organized Health Care Education/Training Program; ADMITTING PHYSICIAN Hospitalist; ATTENDING PHYSICIAN Internal Medicine; CONSULT PHYSICIAN Internal Medicine Cardiovascular Disease; CONSULT PHYSICIAN Internal Medicine Critical Care Medicine; CONSULT PHYSICIAN Specialist; EMERGENCY PHYSICIAN Emergency Medicine; FAMILY PHYSICIAN Emergency Medicine; OTHER PHYSICIAN Internal Medicine Hematology & Oncology
PROC: 0RRJ00Z Replacement of Right Shoulder Joint with Reverse Ball and Socket Synthetic Substitute, Open Approach (ICD-10-PCS; 2024-04-21)
DX: M84.521A Pathological fracture in neoplastic disease, right humerus, initial encounter for fracture (principal); J18.9 Pneumonia, unspecified organism; I50.23 Acute on chronic systolic (congestive) heart failure; T81.11XA Postprocedural cardiogenic shock, initial encounter; C22.0 Liver cell carcinoma; C79.51 Secondary malignant neoplasm of bone; I13.0 Hypertensive heart and chronic kidney disease with heart failure and stage 1 through stage 4 chronic kidney disease, or unspecified chronic kidney disease; C77.9 Secondary and unspecified malignant neoplasm of lymph node, unspecified; N17.9 Acute kidney failure, unspecified; E87.1 Hypo-osmolality and hyponatremia; E87.20 Acidosis, unspecified; I42.8 Other cardiomyopathies; E87.3 Alkalosis; Z51.5 Encounter for palliative care; Y83.1 Surgical operation with implant of artificial internal device as the cause of abnormal reaction of the patient, or of later complication, without mention of misadventure at the time of the procedure; Y92.239 Unspecified place in hospital as the place of occurrence of the external cause; R53.1 Weakness; I48.0 Paroxysmal atrial fibrillation; I08.0 Rheumatic disorders of both mitral and aortic valves; E78.00 Pure hypercholesterolemia, unspecified; N18.9 Chronic kidney disease, unspecified; D63.0 Anemia in neoplastic disease; R74.01 Elevation of levels of liver transaminase levels; R09.89 Other specified symptoms and signs involving the circulatory and respiratory systems; I25.10 Atherosclerotic heart disease of native coronary artery without angina pectoris; R26.2 Difficulty in walking, not elsewhere classified; N40.1 Benign prostatic hyperplasia with lower urinary tract symptoms; R33.8 Other retention of urine; M19.011 Primary osteoarthritis, right shoulder; F32.A Depression, unspecified; I95.89 Other hypotension; R05.1 Acute cough; G47.33 Obstructive sleep apnea (adult) (pediatric); E04.2 Nontoxic multinodular goiter; I25.5 Ischemic cardiomyopathy; D72.829 Elevated white blood cell count, unspecified; I95.1 Orthostatic hypotension; E11.22 Type 2 diabetes mellitus with diabetic chronic kidney disease; R45.1 Restlessness and agitation; L89.152 Pressure ulcer of sacral region, stage 2; E87.5 Hyperkalemia; I95.81 Postprocedural hypotension; F41.9 Anxiety disorder, unspecified; Z66 Do not resuscitate; Z96.611 Presence of right artificial shoulder joint; Z96.651 Presence of right artificial knee joint; Z79.01 Long term (current) use of anticoagulants; Z87.891 Personal history of nicotine dependence; Z92.21 Personal history of antineoplastic chemotherapy
CPT/HCPCS: 88304; 88305; 88311; 93308; 36600; 51702; 51798; 71045; 71046; 72158; 73020; 73200; 74018; 80048; 80053; 81003; 81015; 81099; 82140; 82248; 82533; 82570; 82805; 82962; 83605; 83735; 83880; 84132; 84300; 85014; 85018; 85025; 85027; 85610; 85730; 86850; 86900; 86901; 88341; 88342; 93005; 93321; 93325; 94640; 96374; 97110; 97162; 97164; 97167; 97168; 97530; 97535; 99285; A9575; C1713; C1776; P9047